=== PATIENT | female | born 1980 | race Caucasian/White ===

== ENCOUNTER 2016-08-26 14:31 | Emergency (ER) ==
[2016-08-26 14:47] VITALS: BP 144/92; TEMP 98.8; BMI 26.2
[2016-08-26] MEDS ORDERED: AUGMENTIN 500-125 MG TAB PO STA (14:57)
[2016-08-26] MEDS ORDERED: NORCO 7.5-325 PO STA (14:57)
--- NOTE | 2016-08-26 15:00 | ED.PDOC ---
General ED Provider: Dr. SANGEETHA BARBOSA Chief Complaint: Tooth Problem Stated Complaint: Been hurting in the tooth, upper side , face swollen. taking ultram not helping. Time Seen by Physician: 14:58 Mode of Arrival: Walk-In Information Source: Patient Primary Care Provider: CHAITANYA WOODS Nursing and Triage Documentation Reviewed and Agree: Yes EENT Complaint Exam - Dental/Oral Complaint/Exam Symptoms Are: Still present Timing: Constant Initial Severity: Moderate Current Severity: Moderate Character: Reports: Aching, Throbbing Aggravating: Reports: Chewing Alleviating: Reports: None Associated Signs and Symptoms: Reports: Swelling, Foul odor. Denies: Discharge , Fever, Foul taste in mouth Related History: Reports: Similar episode Cardiac Risk Factors: Reports: None Dental/Oral Surgical History: Reports: None Tooth Findings: Present: Percussion tenderness, Gross decay Facial Swelling Present: Yes Bleeding Present: No Septal Hematoma: No Differential Diagnoses: Dental Abcess, Dental Caries Review of Systems - Review Of Systems Constitutional: Reports: No symptoms Eyes: Reports: No symptoms Ears, Nose, Mouth, Throat: Reports: Mouth pain Respiratory: Reports: No symptoms Cardiac: Reports: No symptoms GI: Reports: No symptoms : Reports: No symptoms Musculoskeletal: Reports: No symptoms Skin: Reports: No symptoms Neurological: Reports: No symptoms Endocrine: Reports: No symptoms Hematologic/Lymphatic: Reports: No symptoms All Other Systems: Reviewed and Negative Past Medical History - Past Medical History Previously Healthy: Yes Endocrine: Reports: Hyperthyroid Cardiovascular: Reports: Hypertension Respiratory: Reports: None Hematological: Reports: Anemia Gastrointestinal: Reports: None Genitourinary: Reports: None Neuro/Psych: Reports: Anxiety, Depression Musculoskeletal: Reports: None Cancer: Reports: None Last Menstrual Period: this week Other Pertinent Past Medical History: NECK AND BACK PROBLEMS, Previous abscess - Surgical History General Surgical History: Reports: (x4). Denies: Hysterectomy (D&C) - Family History Family History: Reports: Unknown - Social History Smoking Status: Current every day smoker, Light tobacco smoker Smoking Cessation Counseling Time: > 3 min - 10 min Hx Substance Use: No Alcohol Screening: None - Immunizations Tetanus Shot up to Date: Yes Physical Exam - Physical Exam Appearance: Well-appearing, Obese Pain Distress: Mild Eyes: JAILENE, EOMI, Conjunctiva clear ENT: Ears normal, Nose normal, Oropharynx normal Respiratory: Airway patent, Breath sounds clear, Breath sounds equal, Respirations nonlabored Cardiovascular: RRR, Pulses normal, No rub, No murmur GI/: Soft, Nontender, No masses, Bowel sounds normal, No Organomegaly Musculoskeletal: Normal strength, ROM intact, No edema, No calf tenderness Skin: Warm, Dry, Normal color Neurological: Sensation intact, Motor intact, Reflexes intact, Cranial nerves intact, Alert, Oriented Psychiatric: Affect appropriate, Mood appropriate Critical Care Note - Critical Care Note Total Time (mins): 0 Course - Course Orders, Labs, Meds: Orders Category Date Time Status Amoxicillin/Potassium Clav [Augmentin 500-125 mg Tab] MEDS 08/26/16 14:57 Stat 1 tab PO ONCE STA Hydrocodone Bit/Acetaminophen [[place] 7.5-325] MEDS 08/26/16 14:57 Stat 1 tab PO ONCE STA Vital Signs: Temp Pulse Resp BP Pulse Ox 08/26/16 14:31 98.8 F 101 H 16 144/92 H 98 Departure - Departure Time of Disposition: 15:01 Disposition: HOME SELF-CARE Discharge Problem: Toothache Instructions: Dental Caries (ED) Condition: Stable Pt referred to PMD for follow-up: Yes (dentist) Additional Instructions: Keep taking the Ultram Patient goes to pain management' Prescriptions: Amoxicillin/Potassium Clav [Augmentin 500-125 mg Tab] 1 tab PO Q12HR #20 tablet Allergies/Adverse Reactions: Allergies No Known Allergies Allergy (Verified 08/26/16 14:38) Home Medications: Ambulatory Orders Gabapentin [Neurontin] 300 mg PO TID 12/12/13 Dextroamphetamine/Amphetamine [Adderall 15 mg Tablet] 30 mg PO BID 03/02/14 Ferrous Sulfate [Iron] 325 mg PO BID 03/02/14 Tramadol HCl [Ultram] 50 mg PO QID 10/18/14 Cyclobenzaprine HCl [Flexeril] 10 mg PO BID 12/02/14 Clonazepam [Klonopin] 0.5 mg PO BID 09/29/15 Citalopram Hydrobromide [Celexa] 40 mg PO at bedtime #30 11/03/15 Nifedipine [Procardia Xl] 30 mg PO DAILY 11/26/15 Amoxicillin/Potassium Clav [Augmentin 500-125 mg Tab] 1 tab PO Q12HR #20 tablet 08/26/16 Disposition Discussed With: Patient
== END 2016-08-26 15:35 | disposition home or self-care (01) ==
LOC: ED 14:31
DX: K08.89 Other specified disorders of teeth and supporting structures (principal); K02.7 Dental root caries; F17.210 Nicotine dependence, cigarettes, uncomplicated; Z79.899 Other long term (current) drug therapy
CPT/HCPCS: 99282

== ENCOUNTER 2016-09-28 08:52 | Outpatient (CLI) ==
--- NOTE | 2016-09-28 16:44 | MRI ---
EXAM: MRI cervical spine without IV contrast. DATE: 28 September 2016. HISTORY: Chronic neck pain. TECHNIQUE: Sagittal and axial T1W and T2W sequences of the cervical spine along with sagittal IR an d coronal T2W sequences were obtained using 1.2 Jennifer magnet. No IV contrast. COMPARISON: C-spine series 05 July 2011. MRI C-spine 01 June 2014. FINDINGS: Minor/mild rightward curvature of the mid cervical spine is observed. Straightening of t he upper cervical spine may be due to positioning or muscle spasm. No acute c-spine fracture, sublu xation, osseous malignancy, or jumped facet is evident. Cervical vertebra are normal in height. T1 W bone marrow signal is slightly darker than the intervertebral discs, but remains brighter than the paraspinal muscles.. Intervertebral discs are normal in height. Cervical and upper thoracic spina l cord reveals no syrinx, cord edema, myelomalacia, or neoplasm. Visible brainstem and cerebellum are unremarkable. A few inferior right mastoid air cells and bilat eral petrous apex mastoid air cells T2W bright signal is observed. Minor mucosal thickening is demo nstrated within the anterior sphenoid sinus and scattered ethmoid air cells. Trachea, larynx, and ep iglottis are unremarkable. No thyroid, submandibular, or parotid gland neoplasm is evident. Small lymph nodes are seen in the upper neck bilaterally. No cervical lymphadenopathy, distinct neck mass , apical lung mass, pneumonia, or pleural effusion is evident. Segmental analysis: C2-3: Normal. C3-4: Minimal posterior disc bulge (1.2 mm AP) does not contact the cord. Canal is 10.2 mm AP. Ea ch foramen is patent. C4-5: Posterior midline disc protrusion (1.8 mm AP x 5.5 mm transverse) touches the cord anteriorly . Canal is 8.6 mm AP. Minor/mild bilateral foraminal narrowing is due to uncinate hypertrophy. C5-6: Minor posterior disc bulge (1 mm AP) does not contact the cord. Canal is 10.7 mm AP. Mild b ilateral foraminal stenoses due to uncinate hypertrophy and minor left facet disease. C6-7: Minimal posterior disc bulge (1 mm AP) does not contact the cord. Canal is 10.6 mm AP. Josh r bilateral foraminal narrowing is due to uncinate hypertrophy and minor facet disease. C7-T1: Normal, except for bilateral foraminal T2W bright, T1W dark perineural cysts. T1-2: Normal, except for bilateral foraminal T2W bright, T1W dark perineural cysts. IMPRESSIONS: 1. C-spine minor facet arthropathy, uncinate hypertrophy, and DDD. 2. Mild central canal stenosis at C4-5. No syrinx or myelomalacia. 3. Multilevel cervical foraminal narrowing (minor/mild). 4. C7-T1 and T1-2 foraminal benign perineural cysts. 5. Mild bilateral mastoid air cell disease / petrous apicitis. 6. T1W borderline marrow signal. DDX: Normal variation vs red marrow hyperplasia / red marrow rec onversion. Correlate for anemia.
== END 2016-09-28 08:53 | disposition home or self-care (01) ==
LOC: RAD 08:52
PROVIDERS: ATTEND Nurse Practitioner Family
DX: M54.2 Cervicalgia (principal); G89.29 Other chronic pain

== ENCOUNTER 2016-10-20 20:16 | Emergency (ER) ==
[2016-10-20 20:29] VITALS: BP 166/78; TEMP 99.4; BMI 27.3
--- NOTE | 2016-10-20 21:08 | ED.PDOC ---
General ED Provider: Dr. ANANYA COLVIN Chief Complaint: Tooth Problem Stated Complaint: Pateint states she has had right lower dental pain for few days. pain not relvied with Tramadol or motrin Time Seen by Physician: 20:30 Mode of Arrival: Walk-In Information Source: Patient Exam Limitations: No limitations Primary Care Provider: CHAITANYA WOODS Nursing and Triage Documentation Reviewed and Agree: Yes EENT Complaint Exam - Dental/Oral Complaint/Exam Mechanism of Injury: No known trauma Onset/Duration: 3 days Symptoms Are: Still present Timing: Constant Initial Severity: Moderate Current Severity: Severe Character: Reports: Aching, Throbbing Aggravating: Reports: Heat, Cold, Chewing, Exertion Alleviating: Reports: None Associated Signs and Symptoms: Denies: Swelling, Discharge, Fever, Foul odor, Foul taste in mouth Related History: Reports: Similar episode, Previous tooth problem Cardiac Risk Factors: Reports: None Dental/Oral Surgical History: Reports: Third Molar Extractions Tooth Findings: Present: Gross caries, Dental fracture Cervical Lymphadenopathy Present: No Facial Swelling Present: No Bleeding Present: No Septal Hematoma: No Foreign Body Present: No Dysphagia Present: No Drooling Present: No Asymmetrical Tonsillar Swelling Present: No Uvula Midline: No Yoko-tonsillar Fluctuence: No Trismus Present: No Palatal Petechiae Present: No Scarlatinaform Rash Present: No Lesions: Absent: Lip, Gums, Tongue, Buccal Mucosa, Pharynx Exanthem: Absent: Lip, Gums, Tongue, Buccal Mucosa, Pharynx Vesicles: Absent: Lip, Gums, Tongue, Buccal Mucosa, Pharynx Teeth Picture: 1 - fractured tooth 2 - extracted 3 - extracted Differential Diagnoses: Dental Caries, Fractured Tooth Review of Systems - Review Of Systems Constitutional: Reports: No symptoms Eyes: Reports: No symptoms Ears, Nose, Mouth, Throat: Reports: Mouth pain Respiratory: Reports: No symptoms Cardiac: Reports: No symptoms GI: Reports: No symptoms : Reports: No symptoms Musculoskeletal: Reports: No symptoms Skin: Reports: No symptoms Neurological: Reports: No symptoms Endocrine: Reports: No symptoms Hematologic/Lymphatic: Reports: No symptoms All Other Systems: Reviewed and Negative Past Medical History - Past Medical History Previously Healthy: Yes Endocrine: Reports: Hyperthyroid Cardiovascular: Reports: Hypertension Respiratory: Reports: None Hematological: Reports: Anemia Gastrointestinal: Reports: None Genitourinary: Reports: None Neuro/Psych: Reports: Anxiety, Depression Musculoskeletal: Reports: None Cancer: Reports: None Last Menstrual Period: PRESENTLY Other Pertinent Past Medical History: NECK AND BACK PROBLEMS, Previous abscess - Surgical History General Surgical History: Reports: (x4). Denies: Hysterectomy (D&C) - Family History Family History: Reports: Unknown - Social History Smoking Status: Current every day smoker, Light tobacco smoker Hx Substance Use: No Alcohol Screening: None - Immunizations Tetanus Shot up to Date: (UNKNOWN) Physical Exam - Physical Exam Appearance: Well-nourished Ill-appearing: Mild Pain Distress: Moderate Eyes: Conjunctiva clear ENT: Ears normal, Nose normal, Oropharynx normal Neck: Supple Respiratory: Airway patent, Breath sounds clear, Breath sounds equal, Respirations nonlabored Cardiovascular: Pulses normal, No rub, No murmur, Tachycardia Skin: Warm, Dry, Normal color Neurological: Alert, Oriented Psychiatric: Anxious, Depressed Critical Care Note - Critical Care Note Total Time (mins): 0 Course - Course Vital Signs: Temp Pulse Resp BP Pulse Ox 10/20/16 20:17 99.4 F 109 H 20 166/78 H 100 Departure - Departure Time of Disposition: 21:04 Disposition: HOME SELF-CARE Discharge Problem: Toothache Instructions: Toothache (ED) Condition: Fair Pt referred to PMD for follow-up: Yes Additional Instructions: Follow up with your dentist soon Take medications as prescribed. Prescriptions: Amoxicillin [Amoxil] 500 mg PO TID #30 capsule Allergies/Adverse Reactions: Allergies No Known Allergies Allergy (Verified 08/26/16 14:38) Home Medications: Ambulatory Orders Gabapentin [Neurontin] 300 mg PO TID 12/12/13 Dextroamphetamine/Amphetamine [Adderall 15 mg Tablet] 30 mg PO BID 03/02/14 Ferrous Sulfate [Iron] 325 mg PO BID 03/02/14 Tramadol HCl [Ultram] 50 mg PO DIRECTED PRN 10/18/14 Cyclobenzaprine HCl [Flexeril] 10 mg PO BID PRN 12/02/14 Clonazepam [Klonopin] 0.5 mg PO BID 09/29/15 Citalopram Hydrobromide [Celexa] 40 mg PO at bedtime #30 11/03/15 Amoxicillin [Amoxil] 500 mg PO TID #30 capsule 10/20/16 Disposition Discussed With: Patient
[2016-10-20] MEDS ORDERED: AMOXIL PO STA (21:09)
== END 2016-10-20 21:45 | disposition home or self-care (01) ==
LOC: ED 20:16
DX: K08.89 Other specified disorders of teeth and supporting structures (principal); K02.7 Dental root caries; S02.5XXA Fracture of tooth (traumatic), initial encounter for closed fracture; F17.210 Nicotine dependence, cigarettes, uncomplicated
CPT/HCPCS: 99282

== ENCOUNTER 2017-02-13 16:26 | Emergency (ER) ==
[2017-02-13 16:30] VITALS: BP 121/75; TEMP 97.7; BMI 25.7
[2017-02-13] MEDS ORDERED: FLUORETS OP STA (16:38)
[2017-02-13] MEDS ORDERED: PROPARACAINE 0.5% OP STA (16:38)
[2017-02-13] MEDS ORDERED: EYE-STREAM OP STA (16:38)
--- NOTE | 2017-02-13 16:42 | ED.PDOC ---
General ED Provider: Dr. NEEMA WILCOX JR Chief Complaint: Eye Problem Stated Complaint: right eye red, swollen with clear drainage. [ End ]97.7 91 18 96% 121/75 Time Seen by Physician: 16:40 Mode of Arrival: Walk-In Information Source: Patient Exam Limitations: No limitations Primary Care Provider: CHAITANYA WOODS Nursing and Triage Documentation Reviewed and Agree: No Review of Systems - Review Of Systems Constitutional: Reports: No symptoms Eyes: Reports: Blurred vision, Vision change, Drainage, Inflammation, Pain Ears, Nose, Mouth, Throat: Reports: No symptoms Respiratory: Reports: No symptoms Cardiac: Reports: No symptoms GI: Reports: No symptoms : Reports: No symptoms Musculoskeletal: Reports: No symptoms Skin: Reports: No symptoms Neurological: Reports: No symptoms Endocrine: Reports: No symptoms Hematologic/Lymphatic: Reports: No symptoms All Other Systems: Other Past Medical History - Past Medical History Previously Healthy: Yes Endocrine: Reports: Hyperthyroid Cardiovascular: Reports: Hypertension Respiratory: Reports: None Hematological: Reports: Anemia Gastrointestinal: Reports: None Genitourinary: Reports: None Neuro/Psych: Reports: Migraine, Anxiety, Depression Musculoskeletal: Reports: None Cancer: Reports: None Last Menstrual Period: jan 03 Other Pertinent Past Medical History: ;ADD htn - Surgical History General Surgical History: Reports: (x4). Denies: Hysterectomy (D&C) - Family History Family History: Reports: Unknown - Social History Smoking Status: Current every day smoker, Light tobacco smoker Hx Substance Use: No Alcohol Screening: None Physical Exam - Physical Exam Appearance: Well-appearing, Thin Pain Distress: Moderate Eyes: EOMI, Conjunctiva inflammed ENT: Ears normal, Nose normal, Oropharynx normal Neck: Supple Respiratory: Airway patent Cardiovascular: RRR Procedures - Eye Procedure Location of Foreign Body: none Tetracaine Drops Administered: No (proparicane) Eye Irrigated: Yes (no abrasion no fb) Critical Care Note - Critical Care Note Total Time (mins): 0 Course - Course Vital Signs: Temp Pulse Resp BP Pulse Ox 02/13/17 16:27 97.7 F 91 H 18 121/75 96 Departure - Departure Time of Disposition: 17:21 Disposition: HOME SELF-CARE Discharge Problem: Conjunctivitis Qualifiers: Conjunctivitis type: acute Acute conjunctivitis type: unspecified Laterality: right Qualified Code(s): H10.31 - Unspecified acute conjunctivitis, right eye Instructions: Conjunctivitis (ED) Condition: Good Pt referred to PMD for follow-up: Yes Additional Instructions: bleph 10 for three days should improver rapidly if not improving 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 Prescriptions: Sulfacetamide Sodium [Bleph-10 Opth Maribeth] 2 drop OP QID #1 bottle Allergies/Adverse Reactions: Allergies No Known Allergies Allergy (Verified 02/13/17 16:30) Home Medications: Ambulatory Orders Gabapentin [Neurontin] 300 mg PO TID 12/12/13 Dextroamphetamine/Amphetamine [Adderall 15 mg Tablet] 30 mg PO BID 03/02/14 Ferrous Sulfate [Iron] 325 mg PO BID 03/02/14 Cyclobenzaprine HCl [Flexeril] 10 mg PO BID PRN 12/02/14 Clonazepam [Klonopin] 0.5 mg PO BID 09/29/15 Citalopram Hydrobromide [Celexa] 40 mg PO at bedtime #30 11/03/15 Hydrocodone Bit/Acetaminophen [[place] 5-325] 1 each PO TID 02/13/17 Sulfacetamide Sodium [Bleph-10 Opth Maribeth] 2 drop OP QID #1 bottle 02/13/17
== END 2017-02-13 17:29 | disposition home or self-care (01) ==
LOC: ED 16:26
DX: H10.31 Unspecified acute conjunctivitis, right eye (principal); F17.210 Nicotine dependence, cigarettes, uncomplicated
CPT/HCPCS: 99282

== ENCOUNTER 2017-05-07 12:22 | Emergency (ER) ==
[2017-05-07 12:30] VITALS: BP 126/86; TEMP 97.3; BMI 26.6
--- NOTE | 2017-05-07 13:00 | ED.PDOC ---
General ED Provider: Dr. NEEMA WILCOX JR Chief Complaint: Tooth Problem Stated Complaint: RIGHT FACIAL SWELLING YESTERDAY WORSE.[End]right upper molar red tender swelling 97.3 80 16 98% 126/86 10 NORCO AND IBUPROFEN 600 MG 1000 Time Seen by Physician: 13:22 Mode of Arrival: Walk-In Information Source: Patient Exam Limitations: No limitations Primary Care Provider: CHAITANYA WOODS Nursing and Triage Documentation Reviewed and Agree: No Review of Systems - Review Of Systems Constitutional: Reports: Malaise Eyes: Reports: No symptoms Ears, Nose, Mouth, Throat: Reports: Mouth pain (right thrid molar and bucal tenderness note white tissue on bucal surface no visible tooth at site) Respiratory: Reports: No symptoms Cardiac: Reports: No symptoms GI: Reports: No symptoms : Reports: No symptoms Musculoskeletal: Reports: No symptoms Skin: Reports: Lumps (edema) Neurological: Reports: No symptoms Endocrine: Reports: No symptoms Hematologic/Lymphatic: Reports: No symptoms All Other Systems: Other Past Medical History - Past Medical History Previously Healthy: Yes Endocrine: Reports: Hyperthyroid Cardiovascular: Reports: Hypertension Respiratory: Reports: None Hematological: Reports: Anemia Gastrointestinal: Reports: None Genitourinary: Reports: None Neuro/Psych: Reports: Migraine, Anxiety, Depression Musculoskeletal: Reports: None, Back Pain ( NECK AND BACK PROBLEMS ) Cancer: Reports: None Last Menstrual Period: APR 19 Other Pertinent Past Medical History: ADD A - Surgical History General Surgical History: Reports: (x4). Denies: Hysterectomy (D&C) - Family History Family History: Reports: Unknown - Social History Smoking Status: Current every day smoker, Light tobacco smoker Hx Substance Use: No Alcohol Screening: None Physical Exam - Physical Exam Appearance: Ill-appearing Ill-appearing: Moderate Pain Distress: Moderate Eyes: JAILENE, EOMI, Conjunctiva clear ENT: Ears normal, Nose normal, Erythema (color change no focal lesion) Neck: Supple Respiratory: Airway patent, Breath sounds clear, Breath sounds equal, Respirations nonlabored Cardiovascular: RRR, Pulses normal, No rub, No murmur GI/: Soft, Nontender, No masses, Bowel sounds normal, No Organomegaly Musculoskeletal: Normal strength, ROM intact, No edema, No calf tenderness Skin: Warm, Dry, Normal color Neurological: Sensation intact, Motor intact, Reflexes intact, Cranial nerves intact, Alert, Oriented Psychiatric: Affect appropriate, Mood appropriate Critical Care Note - Critical Care Note Total Time (mins): 0 Course - Course Vital Signs: Temp Pulse Resp BP Pulse Ox 05/07/17 12:26 97.3 F L 80 16 126/86 98 Departure - Departure Time of Disposition: 13:25 Disposition: HOME SELF-CARE Discharge Problem: Toothache, Dental abscess Instructions: Dental Caries (GEN), Toothache (ED) Condition: Good Pt referred to PMD for follow-up: Yes Additional Instructions: follow up with dentist as soon as possible take all of antibiotic swelling and pain should lessen after each antibiotic return if fever over 101.0 of worsening need to have dentist address problem Prescriptions: Naproxen [Naprosyn] 500 mg PO Q12HR PRN #30 tablet PRN Reason: PAIN Amoxicillin/Potassium Clav [Augmentin 875-125 mg Tab] 1 tab PO BIDWM #14 tablet Allergies/Adverse Reactions: Allergies No Known Allergies Allergy (Verified 05/07/17 12:24) Home Medications: Ambulatory Orders Gabapentin [Neurontin] 300 mg PO TID 12/12/13 Dextroamphetamine/Amphetamine [Adderall 15 mg Tablet] 30 mg PO BID 03/02/14 Ferrous Sulfate [Iron] 325 mg PO BID 03/02/14 Cyclobenzaprine HCl [Flexeril] 10 mg PO BID PRN 12/02/14 Clonazepam [Klonopin] 0.5 mg PO BID 09/29/15 Citalopram Hydrobromide [Celexa] 40 mg PO at bedtime #30 11/03/15 Hydrocodone Bit/Acetaminophen [[place] 5-325] 1 each PO TID 02/13/17 Amoxicillin/Potassium Clav [Augmentin 875-125 mg Tab] 1 tab PO BIDWM #14 tablet 05/07/17 Naproxen [Naprosyn] 500 mg PO Q12HR PRN #30 tablet 05/07/17
[2017-05-07] MEDS ORDERED: PHENERGAN 25 MG/ML VIAL IM STA (13:19)
[2017-05-07] MEDS ORDERED: DEMEROL 25 MG/ML VIAL IM STA (13:19)
== END 2017-05-07 13:55 | disposition home or self-care (01) ==
LOC: ED 12:22
DX: K04.7 Periapical abscess without sinus (principal); F17.210 Nicotine dependence, cigarettes, uncomplicated
CPT/HCPCS: 96372; 99282

== ENCOUNTER 2017-05-23 07:36 | Outpatient (CLI) ==
[2017-05-23 09:13] LABS: FOLATE 18.8 ng/mL (3.1-20.5)
[2017-05-24 09:20] LABS: BASOPHILS # (AUTO) 0.1 K/uL (0-0.2); BASOPHILS % (AUTO) 0.9 % (0.0-3.0); EOSINOPHILS # (AUTO) 0.2 K/ul (0.0-0.7); EOSINOPHILS % (AUTO) 3.3 % (0.0-7.0); HEMOGLOBIN 9.4 g/dl (12.0-16.0); IMMATURE GRANULOCYTE % (AUTO) 0.1 % (0.0-5.0); LYMPHOCYTES # (AUTO) 2.3 K/uL (0.60-3.4); LYMPHOCYTES % (AUTO) 33.6 (10.0-50.0); MEAN CORPUSCULAR HEMOGLOBIN 25.5 pg (27.0-31.0); MEAN CORPUSCULAR HGB CONC 30.3 (31.8-35.4); MONOCYTES # (AUTO) 0.4 K/uL (0.4-2.0); MONOCYTES % (AUTO) 6.4 (0-10); NEUTROPHILS # (AUTO) 3.7 K/ul (2.0-6.9); NEUTROPHILS % (AUTO) 55.7; PLATELET COUNT 292 10^3/uL (140-440); RED BLOOD COUNT 3.69 10^6/ul (4.20-5.40); WHITE BLOOD COUNT 6.69 K/ul (4.6-10.2)
[2017-05-24 09:45] LABS: ALBUMIN 4.1 g/dL (3.4-5.0); ALBUMIN/GLOBULIN RATIO 1.58; ANION GAP 14.5; BILIRUBIN,TOTAL 0.3 mg/dL (0.00-1.20); BUN/CREATININE RATIO 32.81; CALCIUM 9.4 mg/dL (8.2-10.2); CREATININE 0.64 mg/dL (0.60-1.30); POTASSIUM 3.5 mmol/L (3.5-5.10); TOTAL PROTEIN 6.7 g/dL (6.4-8.2)
== END 2017-05-23 07:37 | disposition home or self-care (01) ==
LOC: LAB 07:36
PROVIDERS: ATTEND Internal Medicine
DX: F90.9 Attention-deficit hyperactivity disorder, unspecified type (principal); F32.9 Major depressive disorder, single episode, unspecified; M48.061 Spinal stenosis, lumbar region without neurogenic claudication; R20.0 Anesthesia of skin
CPT/HCPCS: 36415; 80053; 82607; 82746; 83036; 84439; 84443; 84481; 85025

== ENCOUNTER 2017-07-18 16:41 | Emergency (ER) ==
[2017-07-18 16:50] VITALS: BP 120/85; TEMP 97.8; BMI 28.3
[2017-07-18] MEDS ORDERED: BACTRIM DS 800/160 MG PO STA (19:17)
--- NOTE | 2017-07-18 19:17 | ED.PDOC ---
General ED Provider: Dr. REGINO GRAYSON Chief Complaint: Bite Stated Complaint: Onset yesterday; past hx of previous MRSA abscess. Current area slighlty swollen and indurated. No drainage or red streaking. Worried site needs lanced Time Seen by Physician: 18:00 Mode of Arrival: Walk-In Information Source: Patient Primary Care Provider: CHAITANYA WOODS Nursing and Triage Documentation Reviewed and Agree: Yes Reviewed sepsis parameters & appropriate labs ordered?: Yes System Inflammatory Response Syndrome: Not Applicable Sepsis Protocol: For patient's 13 years and over: Temp is 96.8 and below OR 101 and greater Pulse >90 BPM Resp >20/minute Acutely Altered Mental Status Are patient's symptoms suggestive of a new infection, such as: -Pneumonia -Skin, Soft Tissue -Endocarditis -UTI -Bone, Joint Infection -Implantable Device -Acute Abdominal Infection -Wound Infection -Meningitis -Blood Stream Catheter Infection -Unknown System Inflammatory Response Syndrome: Not Applicable Skin Complaint Exam - Skin/Soft Tissue Complaint/Exam Symptoms Are: Still present Timing: Constant Initial Severity: Mild Current Severity: Moderate Character: Reports: Redness, Swelling, Raised, Painful Aggravating: Reports: None Alleviating: Reports: None Associated Signs and Symptoms: Denies: Fever, Chills, Itching, Drainage, Bruising, Tenderness, Red streaks, Joint swelling Related History: Reports: Similar episode Related Surgical History: Reports: None Recent Exposure to Others w/Similar Symptoms: Yes Skin Findings: Present: Erythema, Fluctuant mass Joint Tenderness Present: No Differential Diagnoses: Abscess, Cellulitis Review of Systems - Review Of Systems Constitutional: Reports: No symptoms Eyes: Reports: No symptoms Ears, Nose, Mouth, Throat: Reports: No symptoms Respiratory: Reports: No symptoms Cardiac: Reports: No symptoms GI: Reports: No symptoms : Reports: No symptoms Musculoskeletal: Reports: No symptoms Skin: Reports: Change in color, Other (swelling rt forearm ) Neurological: Reports: No symptoms All Other Systems: Reviewed and Negative Past Medical History - Past Medical History Previously Healthy: Yes Endocrine: Reports: Hyperthyroid Cardiovascular: Reports: Hypertension Respiratory: Reports: None Hematological: Reports: Anemia Gastrointestinal: Reports: None Genitourinary: Reports: None Neuro/Psych: Reports: Migraine, Anxiety, Depression Musculoskeletal: Reports: None, Back Pain ( NECK AND BACK PROBLEMS ) Cancer: Reports: None Last Menstrual Period: jul 06, 2017 Other Pertinent Past Medical History: ADD A - Surgical History General Surgical History: Reports: (x4). Denies: Hysterectomy (D&C) - Family History Family History: Reports: Unknown - Social History Smoking Status: Current every day smoker, Light tobacco smoker Hx Substance Use: No Alcohol Screening: None Physical Exam - Physical Exam Appearance: Well-appearing Ill-appearing: None Pain Distress: None Eyes: JAILENE, EOMI, Conjunctiva clear, Conjunctiva inflammed ENT: Ears normal, Nose normal, Oropharynx normal Neck: Supple Respiratory: Airway patent, Breath sounds clear, Breath sounds equal Cardiovascular: RRR, Pulses normal GI/: Soft, Nontender, No masses Musculoskeletal: Normal strength, ROM intact, No edema Skin: Warm (localized area mid volar aspect Rt forearm 2X3 cm localized induration. Not forming central punctum or head to surface) Critical Care Note - Critical Care Note Total Time (mins): 0 Course - Course Vital Signs: Temp Pulse Resp BP Pulse Ox 07/18/17 16:41 97.8 F 95 H 20 120/85 98 Departure - Departure Time of Disposition: 19:20 Disposition: HOME SELF-CARE Discharge Problem: Abscess Instructions: Abscess (ED) Condition: Good Pt referred to PMD for follow-up: Yes (see pcp in 24 hours) IPMP verified?: No Prescriptions: Sulfamethoxazole/Trimethoprim [Bactrim Ds 800/160 mg] 1 tab PO Q12HR #20 tablet Allergies/Adverse Reactions: Allergies No Known Allergies Allergy (Verified 07/18/17 16:48) Home Medications: Ambulatory Orders Gabapentin [Neurontin] 300 mg PO TID 12/12/13 Dextroamphetamine/Amphetamine [Adderall 15 mg Tablet] 30 mg PO BID 03/02/14 Ferrous Sulfate [Iron] 325 mg PO BID 03/02/14 Cyclobenzaprine HCl [Flexeril] 10 mg PO BID PRN 12/02/14 Clonazepam [Klonopin] 0.5 mg PO BID 09/29/15 Citalopram Hydrobromide [Celexa] 40 mg PO at bedtime #30 11/03/15 Hydrocodone Bit/Acetaminophen [[place] 5-325] 1 each PO TID 02/13/17 Sulfamethoxazole/Trimethoprim [Bactrim Ds 800/160 mg] 1 tab PO Q12HR #20 tablet 02/15/18 Disposition Discussed With: Patient (May take existing analgesics for control of pain. See Family phys for evaluation tomorrow)
== END 2017-07-18 19:25 | disposition home or self-care (01) ==
LOC: ED 16:41
DX: L02.413 Cutaneous abscess of right upper limb (principal); Z86.14 Personal history of Methicillin resistant Staphylococcus aureus infection; F17.210 Nicotine dependence, cigarettes, uncomplicated
CPT/HCPCS: 99282

== ENCOUNTER 2017-11-28 18:22 | Emergency (ER) ==
[2017-11-28 18:34] VITALS: BP 150/109; TEMP 99.1; BMI 29.0
[2017-11-28] MEDS ORDERED: CLEOCIN PO STA (18:45)
--- NOTE | 2017-11-28 18:45 | ED.PDOC ---
General ED Provider: Dr. REGINO WESTBROOK-ER Chief Complaint: Abscess Stated Complaint: lily got an abscess under myn right arm--lily had them befre Time Seen by Physician: 18:45 Mode of Arrival: Walk-In Information Source: Patient Exam Limitations: No limitations Primary Care Provider: CHAITANYA WOODS Nursing and Triage Documentation Reviewed and Agree: Yes Does patient meet sepsis criteria?: No System Inflammatory Response Syndrome: Not Applicable Sepsis Protocol: For patient's 13 years and over: Temp is 96.8 and below OR 101 and greater Pulse >90 BPM Resp >20/minute Acutely Altered Mental Status Are patient's symptoms suggestive of a new infection, such as: -Pneumonia -Skin, Soft Tissue -Endocarditis -UTI -Bone, Joint Infection -Implantable Device -Acute Abdominal Infection -Wound Infection -Meningitis -Blood Stream Catheter Infection -Unknown Skin Complaint Exam - Skin/Soft Tissue Complaint/Exam Onset/Duration: 24 hrs Symptoms Are: Still present Timing: Constant Initial Severity: Mild Current Severity: Mild Location: right axilla Character: Reports: Redness, Swelling, Raised, Painful Aggravating: Reports: None Alleviating: Reports: None Associated Signs and Symptoms: Reports: Tenderness, Red streaks 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 Surgical History: Reports: None Recent Exposure to Others w/Similar Symptoms: No Skin Findings: Present: Erythema, Induration, Fluctuant mass Joint Tenderness Present: No Differential Diagnoses: Abscess Review of Systems - Review Of Systems Constitutional: Reports: No symptoms Eyes: Reports: No symptoms Ears, Nose, Mouth, Throat: Reports: No symptoms Respiratory: Reports: No symptoms Cardiac: Reports: No symptoms GI: Reports: No symptoms : Reports: No symptoms Musculoskeletal: Reports: No symptoms Skin: Reports: No symptoms, Lumps Neurological: Reports: No symptoms Endocrine: Reports: No symptoms Hematologic/Lymphatic: Reports: No symptoms All Other Systems: Reviewed and Negative Past Medical History - Past Medical History Previously Healthy: Yes Endocrine: Reports: Hyperthyroid Cardiovascular: Reports: Hypertension Respiratory: Reports: None Hematological: Reports: Anemia Gastrointestinal: Reports: None Genitourinary: Reports: None Neuro/Psych: Reports: Migraine, Anxiety, Depression Musculoskeletal: Reports: None, Back Pain ( NECK AND BACK PROBLEMS ) Cancer: Reports: None Last Menstrual Period: now Other Pertinent Past Medical History: ADD A - Surgical History General Surgical History: Reports: (x4). Denies: Hysterectomy (D&C) - Family History Family History: Reports: Unknown - Social History Smoking Status: Current every day smoker, Heavy tobacco smoker Hx Substance Use: No Alcohol Screening: None Physical Exam - Physical Exam Appearance: Well-appearing Pain Distress: Mild Eyes: JAILENE, EOMI, Conjunctiva clear ENT: Ears normal, Nose normal, Oropharynx normal Neck: Supple Respiratory: Airway patent, Breath sounds clear, Breath sounds equal, Respirations nonlabored Cardiovascular: RRR, Pulses normal, No rub, No murmur GI/: Soft Musculoskeletal: Normal strength, ROM intact, No edema, No calf tenderness Skin: Warm Neurological: Sensation intact, Motor intact, Reflexes intact, Cranial nerves intact, Alert, Oriented Psychiatric: Affect appropriate, Mood appropriate Procedures - Incision and Drainage Site: right axilla Instrument Used: 15 Blade I & D Procedure: Yes: Hibiclens Prep, Sterile drapes applied, Sterile dressing applied Lidocaine Used: Yes Type of Drainage: Present: Pus, Blood Irrigated: No Critical Care Note - Critical Care Note Total Time (mins): 0 Course - Course Orders, Labs, Meds: Orders Category Date Time Status Wound care [ED WOUND CARE] .ONCE EMERGENCY 11/28/17 18:46 Active Clindamycin HCl [Cleocin] MEDS 11/28/17 18:45 Stat 300 mg PO ONCE STA Medications Generic Name Dose Route Start Last Admin Trade Name Jeffreyq PRN Reason Stop Dose Admin Clindamycin HCl 300 mg 11/28/17 18:45 Cleocin PO 11/28/17 18:46 ONCE STA Vital Signs: Temp Pulse Resp BP Pulse Ox 11/28/17 18:23 99.1 F 109 H 20 150/109 H 98 Departure - Departure Time of Disposition: 18:48 Disposition: HOME SELF-CARE Discharge Problem: Abscess Instructions: Abscess (ED) Condition: Good Pt referred to PMD for follow-up: Yes IPMP verified?: No Additional Instructions: clindamycin 300mg tid x 7 days--change dressing daily--f/u with pcp Allergies/Adverse Reactions: Allergies No Known Allergies Allergy (Verified 11/28/17 18:33) Home Medications: Ambulatory Orders Gabapentin [Neurontin] 300 mg PO TID 12/12/13 Dextroamphetamine/Amphetamine [Adderall 15 mg Tablet] 30 mg PO BID 03/02/14 Ferrous Sulfate [Iron] 325 mg PO BID 03/02/14 Cyclobenzaprine HCl [Flexeril] 10 mg PO BID PRN 12/02/14 Clonazepam [Klonopin] 0.5 mg PO BID 09/29/15 Citalopram Hydrobromide [Celexa] 40 mg PO at bedtime #30 11/03/15 Hydrocodone Bit/Acetaminophen [[place] 5-325] 1 each PO TID 02/13/17 Disposition Discussed With: Patient
[2017-11-28] MEDS ORDERED: LIDOCAINE HCL 1% SDV ONE (18:55)
== END 2017-11-28 19:05 | disposition home or self-care (01) ==
LOC: ED 18:22
DX: L02.411 Cutaneous abscess of right axilla (principal); F17.210 Nicotine dependence, cigarettes, uncomplicated
CPT/HCPCS: 87070; 87186; 96372; 99283

== ENCOUNTER 2017-12-28 20:57 | Outpatient (CLI) ==
[2017-12-28 21:46] VITALS: BMI 28.7
== END 2017-12-28 21:02 | disposition critical access hospital (66) ==
LOC: AMBL 20:57
PROVIDERS: ATTEND Internal Medicine Geriatric Medicine
DX: R07.9 Chest pain, unspecified (principal); R06.02 Shortness of breath; R06.4 Hyperventilation; F41.9 Anxiety disorder, unspecified

== ENCOUNTER 2017-12-28 21:26 | Emergency (ER) ==
[2017-12-28] MEDS ORDERED: GI COCKTAIL PO STA (21:30)
[2017-12-28] MEDS ORDERED: ATIVAN PO STA (21:31)
[2017-12-28] MEDS ORDERED: ASPIRIN CHEWABLE PO STA (21:31)
--- NOTE | 2017-12-28 21:36 | ED.PDOC ---
General ED Provider: Dr. ANANYA COLVIN Chief Complaint: Chest Wall Injury/Pain Stated Complaint: Patient is a 37 year old female who comes to the ER with chest pain that started at 4 pm today. She states that she had moved her recliner and thought she may have strained Time Seen by Physician: 21:33 Information Source: Patient Exam Limitations: No limitations Primary Care Provider: CHAITANYA WOODS Nursing and Triage Documentation Reviewed and Agree: Yes Does patient meet sepsis criteria?: No System Inflammatory Response Syndrome: Not Applicable Sepsis Protocol: For patient's 13 years and over: Temp is 96.8 and below OR 101 and greater Pulse >90 BPM Resp >20/minute Acutely Altered Mental Status Are patient's symptoms suggestive of a new infection, such as: -Pneumonia -Skin, Soft Tissue -Endocarditis -UTI -Bone, Joint Infection -Implantable Device -Acute Abdominal Infection -Wound Infection -Meningitis -Blood Stream Catheter Infection -Unknown Cardiovascular Complaint Exam - Chest Pain Complaint/Exam Onset: Gradual Duration: 1 day Symptoms Are: Still present Timing: Constant Length of Chest Pain Episodes: 6 hours Initial Severity: Moderate Current Severity: Mild Location: Reports: Left anterior Pain Radiates: Reports: Left shoulder Aggravating: Reports: None Associated Signs and Symptoms: Reports: Nausea Related History: Reports: Similar episode AMI/ACS Risk Factors: Reports: Myocardial Infarction TAD Risk Factors: Reports: None Pulmonary Embolism Risk Factors: Reports: None Prior Care for this Complaint: No Recent Stress Test: No Recent Echo/LV Function: No JVD Present: No Subcutaneous Emphysema Present: No Diminshed Breath Sounds: No Reproducible Chest Wall Pain: No Bilateral Pulses Present: No If Risk Factors for AMI/ACS Consider: EKG, Cardiac Enzymes Co[place] Plater Consulted: No Differential Diagnoses: Chest Wall Pain Review of Systems - Review Of Systems Constitutional: Reports: No symptoms Eyes: Reports: No symptoms Ears, Nose, Mouth, Throat: Reports: No symptoms Respiratory: Reports: Short of air Cardiac: Reports: Chest pain GI: Reports: No symptoms : Reports: No symptoms Musculoskeletal: Reports: No symptoms Skin: Reports: No symptoms Neurological: Reports: Anxiety, Headache Endocrine: Reports: No symptoms Hematologic/Lymphatic: Reports: No symptoms All Other Systems: Reviewed and Negative Past Medical History - Past Medical History Previously Healthy: Yes Endocrine: Reports: Hyperthyroid Cardiovascular: Reports: Hypertension Respiratory: Reports: None Hematological: Reports: Anemia Gastrointestinal: Reports: None Genitourinary: Reports: None Neuro/Psych: Reports: Migraine, Anxiety, Depression Musculoskeletal: Reports: None, Back Pain ( NECK AND BACK PROBLEMS ) Cancer: Reports: None Other Pertinent Past Medical History: ADD A - Surgical History General Surgical History: Reports: (x4). Denies: Hysterectomy (D&C) - Family History Family History: Reports: Unknown - Social History Smoking Status: Current every day smoker, Heavy tobacco smoker Hx Substance Use: No Alcohol Screening: None Physical Exam - Physical Exam Appearance: Ill-appearing Ill-appearing: Moderate Pain Distress: Severe Neck: Supple Respiratory: Airway patent, Breath sounds clear, Breath sounds equal, Respirations nonlabored Cardiovascular: RRR, Pulses normal, No rub, No murmur GI/: Soft, Nontender, No masses, Bowel sounds normal, No Organomegaly Musculoskeletal: Normal strength Skin: Warm Neurological: Sensation intact, Motor intact, Alert, Oriented Psychiatric: Anxious Interpretation - Radiology Interpretation Radiology Interpretation By: ED Physician Radiology Results: Negative Exam Interpreted: Portable CXR - EKG Interpretation Time of EKG #1: 21:13 Rate: Tachy Rhythm: Sinus Ectopy: None [place]: [place] Interpretation: Sinus tachycardia, non specific st Abnormality Critical Care Note - Critical Care Note Total Time (mins): 0 Course - Course Hematology/Chemistry: 12/28/17 21:40 12/28/17 21:40 Orders, Labs, Meds: Lab Review 12/28/17 12/28/17 12/28/17 21:40 21:40 21:40 WBC 11.69 H RBC 3.43 L Hgb 9.3 L Hct 29.1 L MCV 84.8 MCH 27.1 MCHC 32.0 RDW Coeff of Michelle 19.2 H Plt Count 196 Immature Gran % (Auto) 0.3 Neut % (Auto) 82.8 Lymph % (Auto) 10.5 [place] % (Auto) 5.1 Eos % (Auto) 0.9 Baso % (Auto) 0.4 Immature Gran # (Auto) 0.0 Neut # (Auto) 9.7 H Lymph # (Auto) 1.2 [place] # (Auto) 0.6 Eos # (Auto) 0.1 Baso # (Auto) 0.1 D-Dimer (Manual) 1526.63 Sodium 140 Potassium 3.8 Chloride 105 Carbon Dioxide 28 Anion Gap 10.8 BUN 9 Creatinine 0.59 L Estimated GFR (MDRD) 116.00 BUN/Creatinine Ratio 15.25 Glucose 110 Calcium 8.8 Total Bilirubin 0.2 AST 12 L ALT 7 L Alkaline Phosphatase 51 Total Creatine Kinase 57 Troponin I < 0.0100 Total Protein 5.9 L Albumin 3.3 L Globulin 2.6 Albumin/Globulin Ratio 1.27 12/28/17 23:20 WBC RBC Hgb Hct MCV MCH MCHC RDW Coeff of Michelle Plt Count Immature Gran % (Auto) Neut % (Auto) Lymph % (Auto) [place] % (Auto) Eos % (Auto) Baso % (Auto) Immature Gran # (Auto) Neut # (Auto) Lymph # (Auto) [place] # (Auto) Eos # (Auto) Baso # (Auto) D-Dimer (Manual) Sodium Potassium Chloride Carbon Dioxide Anion Gap BUN Creatinine Estimated GFR (MDRD) BUN/Creatinine Ratio Glucose Calcium Total Bilirubin AST ALT Alkaline Phosphatase Total Creatine Kinase Troponin I < 0.0100 Total Protein Albumin Globulin Albumin/Globulin Ratio Orders Category Date Time Status EKG-(ED ONLY) Stat CARDIO 12/28/17 21:30 Completed NPO REMINDER: IMAGING ONCE CARE 12/28/17 23:45 Active ED IV/MEDIPORT/POWERPORT .ONCE EMERGENCY 12/28/17 23:44 Active CBC W/ AUTO DIFF Stat LAB 12/28/17 21:40 Completed COMPREHENSIVE METABOLIC PANEL Stat LAB 12/28/17 21:40 Completed CREATINE KINASE Stat LAB 12/28/17 21:40 Completed D-DIMER Stat LAB 12/28/17 21:40 Completed TROPONIN I Stat LAB 12/28/17 21:40 Completed TROPONIN I Stat LAB 12/28/17 23:20 Completed 0.9 % Sodium Chloride [Saline Flush] MEDS 12/28/17 23:45 Ordered 1 syr IVF PRN PRN Aspirin [Aspirin Chewable] MEDS 12/28/17 21:31 Discontinued 324 mg PO ONCE STA Ketorolac Tromethamine [Toradol] MEDS 12/28/17 23:46 Discontinued 30 mg IVP ONCE STA Lorazepam [Ativan] MEDS 12/28/17 21:31 Discontinued 1 mg PO ONCE STA Mag-Al Plus//Lidocaine [Gi Cocktail] MEDS 12/28/17 21:30 Discontinued 30 ml PO ONCE STA CHEST, 1V AP ONLY Stat RADS 12/28/17 21:[address] CHEST PE PROTOCOL Stat RADS 12/28/17 23:45 Completed Medications Generic Name Dose Route Start Last Admin Trade Name Freq PRN Reason Stop Dose Admin Sodium Chloride 1 syr 12/28/17 23:45 12/29/17 00:04 Saline Flush IVF 1 syr PRN PRN Administration To flush IV Discontinued Medications Generic Name Dose Route Start Last Admin Trade Name Freq PRN Reason Stop Dose Admin Al Hydroxide/Mg Hydroxide 30 ml 12/28/17 21:30 12/28/17 22:01 Gi Cocktail PO 12/28/17 21:31 30 ml ONCE STA Administration Aspirin 324 mg 12/28/17 21:31 12/28/17 22:01 Aspirin Chewable PO 12/28/17 21:32 324 mg ONCE STA Administration Ketorolac Tromethamine 30 mg 12/28/17 23:46 12/29/17 00:01 Toradol IVP 12/28/17 23:47 30 mg ONCE STA Administration Lorazepam 1 mg 12/28/17 21:31 12/28/17 22:01 Ativan PO 12/28/17 21:32 1 mg ONCE STA Administration Vital Signs: Temp Pulse Resp BP Pulse Ox 12/28/17 21:31 98.2 F 74 18 106/76 100 MELVA Risk Score Age >/= 65: No >/= 3 CAD Risk Factors: No Known CAD (Stenosis >/= 50%): No ASA Use in Past 7 Days: No Severe Angina (>/= 2 episodes in 24 hours): No EKG ST Changes >/= 0.5mm: No Postive Cardiac Marker: No MELVA Total Score: 0 MELVA Risk Score: Risk Score Odds of by 30D 0 0.1 (0.1-0.2) 1 0.3 (0.2-0.3) 2 0.4 (0.3-0.5) 3 0.7 (0.6-0.9) 4 1.2 (1.0-1.5) 5 2.2 (1.9-2.6) 6 3.0 (2.5-3.6) 7 4.8 (3.8-6.1) Departure - Departure Time of Disposition: 01:30 Disposition: HOME SELF-CARE Discharge Problem: Chest wall pain, Non-cardiac chest pain Instructions: Anxiety (ED), Chest Wall Pain (ED) Condition: Stable Pt referred to PMD for follow-up: Yes IPMP verified?: No Additional Instructions: Take medications as prescribed Follow up with PCP in 3-5 days Allergies/Adverse Reactions: Allergies TAPE ADHESIVE Adverse Reaction (Uncoded 12/28/17 21:38) RASH/BLISTER Home Medications: Ambulatory Orders Gabapentin [Neurontin] 300 mg PO TID 12/12/13 Dextroamphetamine/Amphetamine [Adderall 15 mg Tablet] 30 mg PO BID 03/02/14 Ferrous Sulfate [Iron] 325 mg PO TID 03/02/14 Cyclobenzaprine HCl [Flexeril] 10 mg PO BID PRN 12/02/14 Clonazepam [Klonopin] 0.5 mg PO BID 09/29/15 Citalopram Hydrobromide [Celexa] 40 mg PO at bedtime #30 11/03/15 Hydrocodone Bit/Acetaminophen [[place] 5-325] 1 each PO TID 02/13/17 Ibuprofen 800 mg PO Q8H PRN 12/28/17 Disposition Discussed With: Patient
[2017-12-28 21:46] VITALS: BP 106/76; TEMP 98.2; BMI 28.7
--- NOTE | 2017-12-28 23:05 | DI ---
Exam: Single view of the chest. Comparison: None available. Reason for exam: Chest pain. FINDINGS: No pneumothorax, pleural effusion, or focal consolidation. The cardiac silhouette is not enlarged. The imaged osseous structures appear grossly unremarkable without acute fracture. Impression: No acute cardiopulmonary process.
[2017-12-28] MEDS ORDERED: TORADOL IM STA (23:43)
[2017-12-28] MEDS ORDERED: TORADOL IVP STA (23:46)
--- NOTE | 2017-12-29 00:58 | CT ---
Exam: CT angiography of the chest History: Elevated D-dimer and chest pain Technique: [address] of the chest utilizing CT angiography protocol. Multiplanar and max imum intensity projection reformations were performed. FINDINGS: The exam is technically adequate for evaluation of pulmonary arteries and aorta. There ar e no pulmonary artery filling defects. The aorta is normal. The lung. No pulmonary parenchymal abn ormalities. No pathologic lymph node enlargement or abundance of mediastinum. No chest wall abnorma lities. Small ascites seen in the upper abdomen. Question perisplenic fluid. Spleen diameter of 14 x 12 cm is enlarged. Impression: 1. No evidence of pulmonary artery thrombus. No acute findings of the chest 2. Incidental ascites and perisplenic fluid in the upper abdomen. Fluid density is elevated. Canno t exclude hemoperitoneum. Abdominal CT recommended.
[2017-12-29] MEDS ORDERED: NORCO 5-325 PO STA (02:23)
== END 2017-12-29 07:34 | disposition home or self-care (01) ==
LOC: ED 21:26
DX: R07.89 Other chest pain (principal); I10 Essential (primary) hypertension; R06.02 Shortness of breath; I25.2 Old myocardial infarction; D64.9 Anemia, unspecified; E05.90 Thyrotoxicosis, unspecified without thyrotoxic crisis or storm; F17.210 Nicotine dependence, cigarettes, uncomplicated; Z79.899 Other long term (current) drug therapy
CPT/HCPCS: 36415; 80053; 82550; 84484; 85025; 85379; 93005; 93010; 96374; 99283

== ENCOUNTER 2018-01-15 13:24 | Outpatient (CLI) | END 2018-01-15 13:25 | disposition home or self-care (01) | LOC: RAD 13:24 | PROVIDERS: ATTEND Internal Medicine | DX: Z12.31 Encounter for screening mammogram for malignant neoplasm of breast (principal) | CPT/HCPCS: 77067 ==

== ENCOUNTER 2018-09-30 00:06 | Outpatient (CLI) | END 2018-09-30 00:24 | disposition critical access hospital (66) | LOC: AMBL 00:06 | PROVIDERS: ATTEND Emergency Medicine | DX: F99 Mental disorder, not otherwise specified (principal) ==

== ENCOUNTER 2018-10-20 21:29 | Emergency (ER) ==
[2018-10-20 21:38] VITALS: BP 141/92; TEMP 98.9; BMI 30.2
[2018-10-20] MEDS ORDERED: LIDOCAINE HCL 1% SDV SUBCUT STA (21:40)
[2018-10-20] MEDS ORDERED: TENIVAC IM ONE (21:41)
--- NOTE | 2018-10-20 21:59 | ED.PDOC ---
General ED Provider: Dr. REGINO WESTBROOK-ER Chief Complaint: Hand Laceration Stated Complaint: i cut my finger on a dish Time Seen by Physician: 21:35 Mode of Arrival: Walk-In Information Source: Patient Exam Limitations: No limitations Primary Care Provider: CHAITANYA WOODS Nursing and Triage Documentation Reviewed and Agree: Yes Does patient meet sepsis criteria?: No System Inflammatory Response Syndrome: Not Applicable Sepsis Protocol: For patient's 13 years and over: Temp is 96.8 and below OR 101 and greater Pulse >90 BPM Resp >20/minute Acutely Altered Mental Status Are patient's symptoms suggestive of a new infection, such as: -Pneumonia -Skin, Soft Tissue -Endocarditis -UTI -Bone, Joint Infection -Implantable Device -Acute Abdominal Infection -Wound Infection -Meningitis -Blood Stream Catheter Infection -Unknown Skin Complaint Exam - Laceration/Abrasion/Hand Complaint/Exam Location of Injury: Left, Hand Mechanism of Injury: Laceration Onset/Duration: 30 min Symptoms Are: Still present Initial Severity: Mild Current Severity: Mild Aggravating: Movement Alleviating: Compression Associated Signs and Symptoms: Denies: Fever, Chills, Erythema, Numbness, Tingling Differential Diagnoses: Laceration Review of Systems - Review Of Systems Constitutional: Reports: No symptoms Eyes: Reports: No symptoms Ears, Nose, Mouth, Throat: Reports: No symptoms Respiratory: Reports: No symptoms Cardiac: Reports: No symptoms GI: Reports: No symptoms : Reports: No symptoms Musculoskeletal: Reports: No symptoms Skin: Reports: No symptoms Neurological: Reports: No symptoms Endocrine: Reports: No symptoms Hematologic/Lymphatic: Reports: No symptoms All Other Systems: Reviewed and Negative Past Medical History - Past Medical History Previously Healthy: Yes Endocrine: Reports: Hyperthyroid Cardiovascular: Reports: Hypertension Respiratory: Reports: None Hematological: Reports: Anemia Gastrointestinal: Reports: None Genitourinary: Reports: None Neuro/Psych: Reports: Migraine, Anxiety, Depression Musculoskeletal: Reports: None, Back Pain ( NECK AND BACK PROBLEMS ) Cancer: Reports: None Last Menstrual Period: 10/03/18 Other Pertinent Past Medical History: ADD A - Surgical History General Surgical History: Reports: (x4). Denies: Hysterectomy (D&C) - Family History Family History: Reports: Unknown - Social History Smoking Status: Current every day smoker, Heavy tobacco smoker Hx Substance Use: No Alcohol Screening: None - Immunizations Tetanus Shot up to Date: No (unknown) Physical Exam - Physical Exam Appearance: Well-appearing, No pain distress, Well-nourished Pain Distress: Mild Eyes: JAILENE, EOMI, Conjunctiva clear ENT: Ears normal, Nose normal, Oropharynx normal Neck: Supple Respiratory: Airway patent, Breath sounds clear, Breath sounds equal, Respirations nonlabored Cardiovascular: RRR, Pulses normal, No rub, No murmur GI/: Soft, Nontender, No masses, Bowel sounds normal, No Organomegaly Musculoskeletal: Normal strength, ROM intact, No edema, No calf tenderness Skin: Warm, Dry, Normal color Neurological: Sensation intact, Motor intact, Reflexes intact, Cranial nerves intact, Alert, Oriented Psychiatric: Affect appropriate, Mood appropriate Procedures - Laceration/Wound Repair No standard instances Wound Description: Stellate Wound Length (cm): 2cm left index finger Wound Explored: Clean Wound Irrigated: No Wound Prep: Hibiclens Anesthesia: Lidocaine Suture Size and Type: 4.0 prolene Number of Sutures: 6 Layer Closure?: No Sterile Dressing Applied?: Yes Splint Applied?: No Sling Applied?: No Critical Care Note - Critical Care Note Total Time (mins): 0 Course - Course Orders, Labs, Meds: Orders Category Date Time Status Lidocaine HCl/Pf [Lidocaine HCl 1% Sdv] MEDS 10/20/18 21:40 Discontinued 5 ml SUBCUT ONCE STA Tetanus and Diphtheria Tox/Pf [Tenivac] MEDS 10/20/18 21:41 Discontinued 0.5 ml IM .ONCE ONE Medications Discontinued Medications Generic Name Dose Route Start Last Admin Trade Name Freq PRN Reason Stop Dose Admin Lidocaine HCl 5 ml 10/20/18 21:40 10/20/18 21:59 Lidocaine Hcl 1% Sdv SUBCUT 10/20/18 21:41 5 ml ONCE STA Administration Tetanus/Diphtheria Toxoids Adsorbed 0.5 ml 10/20/18 21:41 10/20/18 21:54 Tenivac IM 10/20/18 21:42 0.5 ml .ONCE ONE Administration Vital Signs: Temp Pulse Resp BP Pulse Ox 10/20/18 21:30 98.9 F 103 H 20 141/92 H 98 Departure - Departure Time of Disposition: 21:58 Disposition: HOME SELF-CARE Discharge Problem: Laceration of hand Instructions: Finger Laceration (ED) Condition: Good Pt referred to PMD for follow-up: Yes IPMP verified?: No Additional Instructions: keep clean and dry---sutures out in 7 days---return if any signs of infection Allergies/Adverse Reactions: Allergies TAPE ADHESIVE Adverse Reaction (Uncoded 10/20/18 21:37) RASH/BLISTER Home Medications: Ambulatory Orders Gabapentin [Neurontin] 300 mg PO TID 12/12/13 Dextroamphetamine/Amphetamine [Adderall 15 mg Tablet] 30 mg PO BID 03/02/14 Ferrous Sulfate [Iron] 325 mg PO TID 03/02/14 Cyclobenzaprine HCl [Flexeril] 10 mg PO BID PRN 12/02/14 Clonazepam [Klonopin] 0.5 mg PO BID 09/29/15 Citalopram Hydrobromide [Celexa] 40 mg PO at bedtime #30 11/03/15 Hydrocodone Bit/Acetaminophen [[place] 5-325] 1 each PO TID 02/13/17 Ibuprofen 800 mg PO Q8H PRN 12/28/17 Divalproex Sodium [Depakote] 500 mg PO BID 10/20/18 Disposition Discussed With: Patient
== END 2018-10-20 22:18 | disposition home or self-care (01) ==
LOC: ED 21:29
DX: S61.211A Laceration without foreign body of left index finger without damage to nail, initial encounter (principal); W25.XXXA Contact with sharp glass, initial encounter
CPT/HCPCS: 90471; 90714; 99283

== ENCOUNTER 2018-10-27 19:07 | Emergency (ER) ==
[2018-10-27 19:11] VITALS: BP 132/91; TEMP 99.3; BMI 28.1
[2018-10-27] MEDS ORDERED: CLEOCIN PO STA (19:25)
[2018-10-27] MEDS ORDERED: BACTROBAN TP STA (19:25)
--- NOTE | 2018-10-27 19:28 | ED.PDOC ---
General ED Provider: Dr. REGINO WESTBROOK-ER Chief Complaint: Wound Check Stated Complaint: my lac was healing until yesterday and it started swelling Time Seen by Physician: 19:10 Mode of Arrival: Walk-In Information Source: Patient Exam Limitations: No limitations Primary Care Provider: CHAITANYA WOODS Nursing and Triage Documentation Reviewed and Agree: Yes Does patient meet sepsis criteria?: No System Inflammatory Response Syndrome: Not Applicable Sepsis Protocol: For patient's 13 years and over: Temp is 96.8 and below OR 101 and greater Pulse >90 BPM Resp >20/minute Acutely Altered Mental Status Are patient's symptoms suggestive of a new infection, such as: -Pneumonia -Skin, Soft Tissue -Endocarditis -UTI -Bone, Joint Infection -Implantable Device -Acute Abdominal Infection -Wound Infection -Meningitis -Blood Stream Catheter Infection -Unknown Skin Complaint Exam - Skin/Soft Tissue Complaint/Exam Onset/Duration: 2 4hrs Symptoms Are: Still present Timing: Constant Initial Severity: Mild Current Severity: Mild Location: right hand Character: Reports: Redness, Swelling Aggravating: Reports: None Alleviating: Reports: None Associated Signs and Symptoms: Reports: Drainage, Red streaks Related History: Reports: Recent trauma Related Surgical History: Reports: None Recent Exposure to Others w/Similar Symptoms: No Skin Findings: Present: Erythema Joint Tenderness Present: No Differential Diagnoses: Infection Review of Systems - Review Of Systems Constitutional: Reports: No symptoms Eyes: Reports: No symptoms Ears, Nose, Mouth, Throat: Reports: No symptoms Respiratory: Reports: No symptoms Cardiac: Reports: No symptoms GI: Reports: No symptoms : Reports: No symptoms Musculoskeletal: Reports: No symptoms Skin: Reports: No symptoms Neurological: Reports: No symptoms Endocrine: Reports: No symptoms Hematologic/Lymphatic: Reports: No symptoms All Other Systems: Reviewed and Negative Past Medical History - Past Medical History Previously Healthy: Yes Endocrine: Reports: Hyperthyroid Cardiovascular: Reports: Hypertension Respiratory: Reports: None Hematological: Reports: Anemia Gastrointestinal: Reports: None Genitourinary: Reports: None Neuro/Psych: Reports: Migraine, Anxiety, Depression Musculoskeletal: Reports: None, Back Pain ( NECK AND BACK PROBLEMS ) Cancer: Reports: None Last Menstrual Period: September Other Pertinent Past Medical History: ADD A - Surgical History General Surgical History: Reports: (x4). Denies: Hysterectomy (D&C) - Family History Family History: Reports: Unknown - Social History Smoking Status: Current every day smoker, Heavy tobacco smoker Hx Substance Use: No Alcohol Screening: None Physical Exam - Physical Exam Appearance: Well-appearing, No pain distress, Well-nourished Eyes: JAILENE, EOMI, Conjunctiva clear ENT: Ears normal, Nose normal, Oropharynx normal Neck: Supple Respiratory: Airway patent Cardiovascular: RRR GI/: Soft, Nontender, No masses, Bowel sounds normal, No Organomegaly Musculoskeletal: Normal strength Skin: Warm, Dry, Normal color Neurological: Sensation intact, Motor intact, Reflexes intact, Cranial nerves intact, Alert, Oriented Psychiatric: Affect appropriate, Mood appropriate Critical Care Note - Critical Care Note Total Time (mins): 0 Course - Course Orders, Labs, Meds: Orders Category Date Time Status WOUND CULTURE Stat LAB 10/27/18 19:16 Ordered Clindamycin HCl [Cleocin] MEDS 10/27/18 19:25 Stat 300 mg PO ONCE STA Mupirocin [Bactroban] MEDS 10/27/18 19:25 Stat 1 applic TP ONCE STA Medications Generic Name Dose Route Start Last Admin Trade Name Vannessa PRN Reason Stop Dose Admin Clindamycin HCl 300 mg 10/27/18 19:25 Cleocin PO 10/27/18 19:26 ONCE STA Mupirocin 1 applic 10/27/18 19:25 Bactroban TP 10/27/18 19:26 ONCE STA Vital Signs: Temp Pulse Resp BP Pulse Ox 10/27/18 19:07 99.3 F 114 H 18 132/91 H 98 Departure - Departure Time of Disposition: 19:28 Disposition: HOME SELF-CARE Discharge Problem: Wound Instructions: Laceration (ED) Condition: Good Pt referred to PMD for follow-up: Yes IPMP verified?: No Additional Instructions: wash wound with soap aNd water only----apply bactroban to the wound bid till healed---clindamycin 300mg qid x 7 days---its important to see your pcp in 48hrs to recheck the wound Allergies/Adverse Reactions: Allergies TAPE ADHESIVE Adverse Reaction (Uncoded 10/20/18 21:37) RASH/BLISTER Home Medications: Ambulatory Orders Gabapentin [Neurontin] 300 mg PO TID 12/12/13 Dextroamphetamine/Amphetamine [Adderall 15 mg Tablet] 30 mg PO BID 03/02/14 Ferrous Sulfate [Iron] 325 mg PO TID 03/02/14 Cyclobenzaprine HCl [Flexeril] 10 mg PO BID PRN 12/02/14 Clonazepam [Klonopin] 0.5 mg PO BID 09/29/15 Citalopram Hydrobromide [Celexa] 40 mg PO at bedtime #30 11/03/15 Hydrocodone Bit/Acetaminophen [[place] 5-325] 1 each PO TID 02/13/17 Ibuprofen 800 mg PO Q8H PRN 12/28/17 Divalproex Sodium [Depakote] 500 mg PO BID 10/20/18 Disposition Discussed With: Patient
[2018-10-27] MEDS ORDERED: POLYSPORIN 0.9 GM PACKET TP STA (19:37)
== END 2018-10-27 19:35 | disposition home or self-care (01) ==
LOC: ED 19:07
DX: S61.411A Laceration without foreign body of right hand, initial encounter (principal); F17.210 Nicotine dependence, cigarettes, uncomplicated
CPT/HCPCS: 87070; 87186; 99283

== ENCOUNTER 2019-01-09 10:19 | Outpatient (CLI) ==
--- NOTE | 2019-01-09 11:33 | DI ---
EXAM: CERVICAL SPINE, 3 VIEWS HISTORY: Cervical arthropathy. FINDINGS: Compared to 07/05/2011. General bone density appears normal. No noticeable scoliosis is present. Lateral masses of C1 and C2 are normally aligned and the odontoid process is intact. Late ral projection reveals subtle reversal of normal lordosis at the mid spine level similar to that prev iously seen. There is no fracture, loss of vertebral body height or spondylolisthesis. Mild degener ative disc and facet disease is seen at the cervical thoracic junction unchanged since previous study IMPRESSION: 1. Mild degenerative changes of the spine similar to that previously seen.
--- NOTE | 2019-01-09 13:47 | DI ---
EXAM: Three views of the thoracic spine. History: Thoracic back pain. Findings: No acute fracture or subluxation of the thoracic spine. Disc space heights are preserved. No abnormal calcifications or radiopaque foreign bodies. No suspicious lytic or blastic osseous le sions. Impression: Normal study
--- NOTE | 2019-01-11 22:47 | MRI ---
EXAM: Cervical spine MRI without contrast. HISTORY: Cervical arthropathy. COMPARISON: Cervical spine radiographs 01/09/2099 cervical spine MRI 09/28/2016. TECHNIQUE: Multiplanar, multisequence MR images were acquired of the cervical spine without contrast . FINDINGS: The craniocervical junction is normal and the cervical cord has no abnormal intramedullary T2 hyperintensities. There is minor mid cervical dextroscoliosis centered at C4-5 and there is dennys r cervicothoracic levoscoliosis. There is straightening usual cervical lordosis. The cervical verte bra are normal in height and intrinsic bone marrow signal. There is minor flexion of the cervical sp ine centered at C3-4 and there is minor ventral spondylosis at C4-5, C5-6 and C6-7. There is desicca tion of the intervertebral discs from C3-4 to C6-7. Several scattered perineural cysts are present. There is bright T2 signal fluid in bilateral petrous apex air cells and there is a mild polypoid muc osal thickening right maxillary antrum.. There are enlarged nerve root sleeves bilaterally at C1-2. There are no paravertebral masses. Visualized lung apices are clear. C2-3: The intervertebral disc is normal. There is mild right hypertrophic facet arthropathy without foraminal stenosis. C3-4: There is a mild posterior disc bulge without central canal stenosis. Neural foramina are pat ent. C4-5: There is a mild disc bulge, minor left uncovertebral hypertrophy and mild left facet arthropat hy. There is minor bilateral foraminal stenosis. C5-6: There is a minor disc bulge, minor right uncovertebral hypertrophy and mild left hypertrophic facet arthropathy. There is mild bilateral foraminal stenosis. C6-7: There is ventral spondylosis and mild bilateral hypertrophic facet arthropathy. Small bilater al perineural cysts are present. There is mild left foraminal stenosis. C7-T1: The intervertebral disc is normal. Bilateral perineural cysts are present. There is mild ri ght and minor left hypertrophic facet arthropathy without foraminal stenosis. IMPRESSION: 1. No change mild cervical degenerative spondylosis and facet arthropathy. 2. No cervical disc herniations, central canal stenosis or myelomalacia.
== END 2019-01-09 10:20 | disposition home or self-care (01) ==
LOC: RAD 10:19
PROVIDERS: ATTEND Nurse Practitioner Family
DX: M50.121 Cervical disc disorder at C4-C5 level with radiculopathy (principal); M47.812 Spondylosis without myelopathy or radiculopathy, cervical region; M47.22 Other spondylosis with radiculopathy, cervical region; M51.26 Other intervertebral disc displacement, lumbar region; M51.27 Other intervertebral disc displacement, lumbosacral region; M51.36 Other intervertebral disc degeneration, lumbar region; M51.37 Other intervertebral disc degeneration, lumbosacral region; M47.816 Spondylosis without myelopathy or radiculopathy, lumbar region; M47.817 Spondylosis without myelopathy or radiculopathy, lumbosacral region

== ENCOUNTER 2019-02-12 13:50 | Observation (INO) ==
[2019-02-12 13:54] VITALS: BMI 25.9
--- NOTE | 2019-02-12 14:31 | ED.PDOC ---
General ED Provider: Dr. KRUPA KIRBY Chief Complaint: Facial Injury Stated Complaint: History of abscesses including hospitalization and IV antibiotics. Has small draining lesion L side of head. This morning woke up with eye swollen shut. Time Seen by Physician: 14:20 Mode of Arrival: Walk-In Information Source: Patient Exam Limitations: No limitations Primary Care Provider: CHAITANYA WOODS Nursing and Triage Documentation Reviewed and Agree: Yes Does patient meet sepsis criteria?: No System Inflammatory Response Syndrome: Not Applicable Sepsis Protocol: For patient's 13 years and over: Temp is 96.8 and below OR 101 and greater Pulse >90 BPM Resp >20/minute Acutely Altered Mental Status Are patient's symptoms suggestive of a new infection, such as: -Pneumonia -Skin, Soft Tissue -Endocarditis -UTI -Bone, Joint Infection -Implantable Device -Acute Abdominal Infection -Wound Infection -Meningitis -Blood Stream Catheter Infection -Unknown Review of Systems - Review Of Systems Constitutional: Reports: No symptoms Eyes: Reports: Other (L eye, swollen shut - L facial swelling) Respiratory: Reports: No symptoms. Denies: Cough Cardiac: Reports: No symptoms Skin: Reports: Change in color (L face ) All Other Systems: Reviewed and Negative Past Medical History - Past Medical History Previously Healthy: Yes Endocrine: Reports: Hyperthyroid Cardiovascular: Reports: Hypertension Respiratory: Reports: None Hematological: Reports: Anemia Gastrointestinal: Reports: None Genitourinary: Reports: None Neuro/Psych: Reports: Migraine, Anxiety, Depression Musculoskeletal: Reports: None, Back Pain ( NECK AND BACK PROBLEMS ) Cancer: Reports: None Last Menstrual Period: 02/01/19 Other Pertinent Past Medical History: ADD A - Surgical History General Surgical History: Reports: (x4). Denies: Hysterectomy (D&C) - Family History Family History: Reports: Unknown - Social History Smoking Status: Current every day smoker, Heavy tobacco smoker Hx Substance Use: Yes Alcohol Screening: None Physical Exam - Physical Exam Appearance: Well-appearing (Except for marked L facial swelling including L eye swollen and closed) Ill-appearing: Mild Pain Distress: None Eyes: JAILENE (Unable to fully evaluate) ENT: Ears normal, Nose normal, Oropharynx normal Respiratory: Airway patent, Breath sounds clear Cardiovascular: RRR, Pulses normal Musculoskeletal: Normal strength, ROM intact Skin: Warm, Dry, Normal color (Except) Neurological: Sensation intact, Motor intact Psychiatric: Affect appropriate, Mood appropriate Critical Care Note - Critical Care Note Total Time (mins): 40 Comments: Review of blood work, CT scan, discussion with Hospitalist, evaluation of pt prior history Course - Course Hematology/Chemistry: 02/13/19 04:45 02/13/19 04:45 Orders, Labs, Meds: Lab Review 02/12/19 02/12/19 02/12/19 14:50 14:50 14:50 WBC 6.33 RBC 4.03 L Hgb 11.7 L Hct 37.0 MCV 91.8 MCH 29.0 MCHC 31.6 L RDW Coeff of Michelle 14.7 Plt Count 188 Immature Gran % (Auto) 0.2 Neut % (Auto) 59.8 Lymph % (Auto) 22.3 Hartley % (Auto) 12.5 H Eos % (Auto) 3.8 Baso % (Auto) 1.4 Immature Gran # (Auto) 0.0 Neut # (Auto) 3.8 Lymph # (Auto) 1.4 Hartley # (Auto) 0.8 Eos # (Auto) 0.2 Baso # (Auto) 0.1 Sodium 136.2 Potassium 3.60 Chloride 100.5 Carbon Dioxide 32.3 H Anion Gap 7.00 BUN 20.1 H Creatinine 0.59 L Estimated GFR (MDRD) 115.00 BUN/Creatinine Ratio 34.06 Glucose 95.7 Calcium 9.30 Total Bilirubin 0.39 AST 15.9 ALT 9.8 Alkaline Phosphatase 53.6 Total Protein 6.78 Albumin 3.95 Globulin 2.83 Albumin/Globulin Ratio 1.39 Serum , Qual Negative Orders Category Date Time Status ACTIVITY .Up ad Saranya CARE 02/12/19 16:58 Completed INTAKE & OUTPUT Q8HR CARE 02/12/19 16:58 Active NPO REMINDER: IMAGING ONCE CARE 02/12/19 14:29 Completed VITAL SIGNS Q4HR CARE 02/12/19 16:58 Active VITAL SIGNS Q4HR CARE 02/12/19 16:58 Completed REGULAR DIET DIETARY 02/12/19 Dinner Ordered BLOOD CULTURE (ED ONLY) Stat LAB 02/12/19 15:15 Received CBC W/ AUTO DIFF DAILY@0600 LAB 02/13/19 04:45 Completed CBC W/ AUTO DIFF DAILY@0600 LAB 02/14/19 06:00 Ordered CBC W/ AUTO DIFF Stat LAB 02/12/19 14:50 Completed COMPREHENSIVE METABOLIC PANEL DAILY@0600 LAB 02/13/19 04:45 Completed COMPREHENSIVE METABOLIC PANEL DAILY@0600 LAB 02/14/19 06:00 Ordered COMPREHENSIVE METABOLIC PANEL Stat LAB 02/12/19 14:50 Completed SERUM Stat LAB 02/12/19 14:50 Completed Cefepime 1 gm Vial [Maxipime 1 gm Vial] 1 gm MEDS 02/12/19 18:00 Discontinued 0.9 % Sodium Chloride [Sodium Chloride] 50 ml IV Q12HR Diphenhydramine Inj [Benadryl] 25 mg MEDS 02/12/19 18:00 Active 0.9 % Sodium Chloride [Sodium Chloride] 100 ml IV Q6HR Methylprednisolone Sod Succ/Pf [Solu-Medrol 40 mg] MEDS 02/12/19 18:00 Active 40 mg IVP Q6HR Sodium Chloride 0.9% [Sodium Chloride] 1,000 ml MEDS 02/12/19 17:00 Active IV 75 mls/hr Vancomycin HCl [Vancomycin] 1.25 gm MEDS 02/12/19 19:00 Active 0.9 % Sodium Chloride [Sodium Chloride] 250 ml IV Q8H RESUSCITATION STATUS Routine OTHERS 02/12/19 16:[address] MAXILLOFACIAL W/CONTRAST Stat RADS 02/12/19 14:28 Completed Medications Generic Name Dose Route Start Last Admin Trade Name Freq PRN Reason Stop Dose Admin Amoxicillin/Clavulanate Potassium 1 tab 02/13/19 07:30 Augmentin 875-125 Mg Tab PO 02/16/19 07:29 BIDWM SHAKIR Enoxaparin Sodium 40 mg 02/13/19 07:30 Lovenox SUBCUT DAILY SHAKIR Diphenhydramine HCl 25 mg/ 100.5 mls @ 100 mls/hr 02/12/19 18:00 02/13/19 06: 39 Sodium Chloride IV 100 mls/hr Q6HR SHAKIR Administration Sodium Chloride 1,000 mls @ 75 mls/hr 02/12/19 17:00 02/12/19 19:38 Sodium Chloride IV 75 mls/hr .[id number] SHAKIR Administration Vancomycin HCl 1.25 gm/ Sodium 250 mls @ 125 mls/hr 02/12/19 19:00 02/13/19 04:27 Chloride IV 02/15/19 18:59 125 mls/hr Q8H SHAKIR Administration Methylprednisolone Sodium Succinate 40 mg 02/12/19 18:00 02/13/19 06:39 Solu-Medrol 40 Mg IVP 40 mg Q6HR SHAKIR Administration Morphine Sulfate 2 mg 02/12/19 18:49 02/12/19 19:53 Morphine 2 Mg/Ml Syringe IVP 2 mg Q4H PRN Administration facial pain Nicotine 1 patch 02/12/19 19:00 02/12/19 19:44 Nicoderm 21 Mg TD 1 patch DAILY SHAKIR Administration Non-Formulary Medication 0.5 mg 02/12/19 19:00 02/12/19 22:09 Clonazepam [Klonopin] PO Not Given TID SHAKIR Non-Formulary Medication 30 mg 02/12/19 19:00 02/12/19 22:09 Dextroamphetamine/Amphetamine [Adderall 15 Mg Tablet] PO Not Given BID [facility] Non-Formulary Medication 500 mg 02/12/19 19:00 02/12/19 22:09 Divalproex Sodium [Depakote] PO Not Given BID [facility] Non-Formulary Medication 325 mg 02/12/19 19:00 02/12/19 22:08 Ferrous Sulfate [Iron] PO Not Given TID [facility] Non-Formulary Medication 300 mg 02/12/19 19:00 02/12/19 22:08 Gabapentin [Neurontin] PO Not Given TID SHAKIR Trimethoprim/Sulfamethoxazole 2 tab 02/13/19 07:30 Bactrim Ds 800/160 Mg PO 02/20/19 07:29 Q12HR [facility] Discontinued Medications Generic Name Dose Route Start Last Admin Trade Name Freq PRN Reason Stop Dose Admin Cefepime HCl 1 gm/ Sodium 50 mls @ 50 mls/hr 02/12/19 18:00 02/12/19 20:47 Chloride IV 02/15/19 17:59 50 mls/hr Q12HR SHAKIR Administration Mupirocin 1 gm 02/12/19 22:40 Bactroban Ointment 1 Gram Applicator (Er) TP 02/12/19 22:41 ONCE STA Vital Signs: Temp Pulse Resp BP Pulse Ox 02/12/19 13:51 99.2 F 124 H 18 115/68 96 Departure - Departure Time of Disposition: 17:14 Disposition: ADMITTED INPATIENT Discharge Problem: Facial cellulitis Condition: Stable Pt referred to PMD for follow-up: Yes (Follow up after hospitalization) IPMP verified?: No Allergies/Adverse Reactions: Allergies TAPE ADHESIVE Adverse Reaction (Uncoded 02/12/19 13:53) RASH/BLISTER Home Medications: Ambulatory Orders Gabapentin [Neurontin] 300 mg PO TID 12/12/13 Dextroamphetamine/Amphetamine [Adderall 15 mg Tablet] 30 mg PO BID 03/02/14 Ferrous Sulfate [Iron] 325 mg PO TID 03/02/14 Cyclobenzaprine HCl [Flexeril] 10 mg PO BID PRN 12/02/14 Clonazepam [Klonopin] 0.5 mg PO TID 09/29/15 Hydrocodone Bit/Acetaminophen [[place] 5-325] 1 each PO TID 02/13/17 Divalproex Sodium [Depakote] 500 mg PO BID 10/20/18
--- NOTE | 2019-02-12 16:23 | CT ---
EXAM: CT FACIAL BONES HISTORY: Swelling around the left eye extending into the face/forehead. TECHNIQUE: CT facial bones with contrast. 3-mm axial sections. Coronal and sagital reformations. FINDINGS: There is significant peripheral soft tissue swelling of the left aspect of the face beginning at the level of the posterior mandibular body and extending superiorly off of the field of view along the le ft temporal and forehead regions. There is diffuse opacity of the subcutaneous fat consistent with c onglomerate edema and inflammation. There is no well-defined walled off fluid collection to indicate a drainable abscess. No soft tissue gas collection is seen. There is no evidence of extension into the orbits. There are several tooth root abscesses at the mandibular level although these are likel y not the etiology of the swelling and most noted on the right. The oropharyngeal structures are sym metric and the salivary glands grossly within normal limits. The paranasal sinuses have mild mucosal thickening within the maxillary cell although this is located on the right rather than the left. Th e mastoid processes are aerated. IMPRESSION: 1. Significant swelling of the left facial peripheral soft tissues without defined abscess. Conside r edema or cellulitis. 2. Poor dental health. 3. Mild right maxillary chronic paranasal sinusitis.
[2019-02-12] MEDS ORDERED: MAXIPIME 1 GM VIAL 1 GM in SODIUM CHLORIDE 50 ML IV SCH (18:00)
--- NOTE | 2019-02-12 18:14 | PCM ---
- Chief Complaint Chief Complaint: Skin infection - History of Present Illness History of Present Illness: 39 yo CF patient of Harry Rey presented to ED 02/12/19 and was seen [address] Magdiel Vera w/ CC of swelling of face. HIstory of skin infections, several abscesses requiring hospitalization. Small draining lesion left side of head. Awoke with eye swollen shut. She walked into ED today with vitals 99.2 temp, pulse 124, rr 18, bp 115/68 and pulse ox 96%. Patient reported history of hyperthyroidism, HTN, anemia, anxiety, migraines, depression, chronic neck/back pain. LMP 02/01/19 and normal for patient. No listed fam hx, current every day smoker, heavy smoker, no ETOH. Labs ordered CBC 6.33 WBC, hgb 11.7, plt 188. CMP unremarkable with sodium 136.2, K+ 3.60, cl 100.5, CO2 32.3, bun 20.1, cr 0.59 and glucose 95.7. test negative. I was contacted at 17:[address] and had discussion [address] Dr[address] Vera 1:1. I recommended vanco/cefepime to cover MRSA/ Strep pneumoniae as most likely organisms. We will cover with this until improving and then likely switch to augmentin/bactrim for D/C home in 24-[address] showed significant swelling of left facial peripheral soft tissues without abscess. Consider edema vs cellulitis. Poor dental health. Right paranasal sinusitis chronically. I queried Dr. Vera about ?allergy and we will cover overnight with solumedrol 40 and benadryl 25mg IV. No latex allergy. She does have a tape/adhesive allergy, which will be monitored. NO reported pain. Blood cultures collected. Set for vitals q 8, diet regular, CMP/ CBC in am tomorrow. I agreed to obs admit. HOme meds reviewed, adderal IR 15mg BID, Iron 325 TID, flexeril, klonopin 0.5 TID, [place] 5 TID, depakote 500 BID, neurontin 300 TID. Nursing triage reviewed. Sx present ~24 hours. Awoke with eye swollen shut drainage from sore on side of face. Area is painful. I saw patient in room 115. She has several scabs, several wounds, several healing on her abdomen, UE and LE. She lives here in [place], PCP in [facility]. Dr. Pitt Pain management. Pain is rated at 6-7/10. She cannot lay on the left side. right forearm more swollen and erythematous. She is uncomfortable. Last round of abx 1 month ago, was on keflex for her right lateral wrist base of thumb bacterial infection and augmentin for sinusits. Several skin lesions noted in various stages of healing, foream, abdomen. She has had these inner thighs and along axilla. They are consistent with hurely 2 Hidradenitis suppurativa. She has never heard of these before. We discussed her face, discussed that it is cellulitis and not an abscess. Culture taken of skin/ blood. We will treat with IV vanco/cefepime for now and will swab for MRSA. We will use topical mupirocin to all open areas. We will continue her home meds, admit to observation, photo wounds. Discussed to not scratch. We will cover with nicotine patches during hospital stay. DIscussed at length with her to f/ u with her PCP to discuss the suspected hidradenitis suppurativa on her abdomen , legs. Left face is likely true cellulitis as HS needs to be at a site where skin touches skin. We will check UDS. - Review of Systems Constitutional: No: fever, chills, weakness, sweats, fatigue, loss of appetite, other Eyes: discharge, pain. No: blurred vision, double-vision, itching, redness, photophobia, other Ears: pain. No: bleeding, drainage, ringing, hearing loss, other Nose: No: bleeding, congestion, discharge, other Throat: No: pain, swelling, voice change, other Mouth: pain. No: bleeding, swelling, other Respiratory: No: cough, shortness of air, wheeze, hemoptysis, pain with breathing, other Cardiovascular: No: chest pain, left arm pain, diaphoresis, PND, orthopnea, edema, palpitations, syncope, other Gastrointestinal: No: abdominal pain, other, nausea, vomiting, diarrhea, melena , hematemesis, hematochezia, dysphagia, constipation Genitourinary: No: dysuria, hematuria, frequency, incontinence, flank pain, vaginal discharge, abnormal bleeding, pelvic pain, other Neurological: headache. No: dizziness, seizure, numbness, weakness, speech difficulty, problems with walking, tremor, fainting, other Musculoskeletal: pain (chronic back pain). No: swelling in joints, other Skin: rash, wounds Immunology: No: hives, itching, frequent infections, difficulty healing, other Hematology: No: easy bruising, easy bleeding, swollen glands, other Endocrine: No: weight changes, cold intolerance, heat intolerance, excessive thirst, excessive hunger, polyuria, other Psychiatric: depression, anxiety, sleeplessness. No: hopelessness, suicidal, hallucinations, other Habits: tobacco use. No: substance use, alcohol use - Past Medical History Past Medical History: History of HTN, bronchitis, [id number], chronic low back/ neck pain. Hyperthyroidism, Bipolar, depression, anxiety, ADHD, behavioral disroders, chronic heavy tobacco, - Past Surgical History Past Surgical History: Csection x 4, D&C, abscess axilla and buttocks. Pap 2014 and Mammo 2016. - Allergies Allergies/Adverse Reactions: Allergies Allergy/AdvReac Type Severity Reaction Status Date / Time TAPE ADHESIVE AdvReac RASH/BLISTE Uncoded 02/12/19 13:53 R - Medications Medications: Medications Generic Name Dose Route Start Last Admin Trade Name Freq PRN Reason Stop Dose Admin Cefepime HCl 1 gm/ Sodium 50 mls @ 50 mls/hr 02/12/19 18:00 Chloride IV 02/15/19 17:59 Q12HR [facility] Diphenhydramine HCl 25 mg/ 100.5 mls @ 100 mls/hr 02/12/19 18:00 Sodium Chloride IV Q6HR [facility] Sodium Chloride 1,000 mls @ 75 mls/hr 02/12/19 17:00 Sodium Chloride IV .[id number] [facility] Vancomycin HCl 1.25 gm/ Sodium 250 mls @ 125 mls/hr 02/12/19 19:00 Chloride IV 02/15/19 18:59 Q8H [facility] Methylprednisolone Sodium Succinate 40 mg 02/12/19 18:00 Solu-Medrol 40 Mg IVP Q6HR SHAKIR - Family History Past Family History: 2 brothers in good health. MotheR HTN. Father cancer - Social History Past Social History: No transportation currently. Chronic pain management. Recurrent skin infections. Prolonged tobacco. Denied ETOH/Substances. - Body Composition Height: 5 ft 7.5 in Weight: 168 lb 8 oz Body Mass Index (BMI): 25.9 - Physical Examination HEENT: Vital Signs - 24 hr 02/12/19 02/12/19 13:51 17:41 Temperature 99.2 F 97.8 F Pulse Rate 124 H 93 H Respiratory 18 22 Rate Blood Pressure 115/68 O2 Sat by Pulse 96 100 Oximetry Constitutional: Appearance-No acute distress, Consistent with stated age. Orientation- Oriented x 3, alertGait-Normal pace, normal arm movement. Build and Nutrition-[BMI 26, mildly overweight] General- Patient is pleasant and cooperative with the interview and exam. Fidgety, restless. Integumentary: General- Left facial swelling about the upper eyelid, lower eyelid, left zygoma and along the left upper ear. She has marked erythema. She has #3 lesions dorsal forearm. #2 lateral right arm. Left arm clear except small lesion along proximal ventral elbow. small spot posterior right flank.small spot back of scalp about 3x3cm posterior scalp erythema and scaling. Bilateral ears clear. left temporal 5mm ulceratoin draining. She has several lesions on left cheek, excoriations. left cheek 1cm and 8 mm excoriations 2x8 just anterior to the ear lobe, inferior 5x5mm. armpits clear. 2 small lesion anterior chest 7 nodules with surrounding errythema along abdomen. Prominent appearance of hydradenitis suppurativa. 4 spots on right areola right lateral thigh 3 nodules on buttock. She has no lesions inner thigh, vaginal, she has no lesions on perineum, buttock clear. small nodule right lateral knee. 4 nodules left lateral thigh 2 on left lateral thigh. Palpation- Normal skin moisture/turgor. Skin is warm to touch, appropriate except for those areas above. Capillary refill is normal bilateral Upper and lower extremity. Nurse Lisa present during entire skin exam. Head/Neck: Head- normocephalic and atraumatic. Except along left upper/lower eyelid/zygoma. Neck- without visible/palpable lumps or pulsations. Palpation- No bony tenderness about head/neck along frontal, occipital, temporal (right), parietal, mastoid, jawline, zygoma, orbit or any other location on right. Left tenderness along zygoma, orbit upper/lower eyelid. NO temporal artery tenderness. No TMJ tenderness. Neck Supple. Thyroid-No thyromegaly, no nodules Eye: Bilaterally PERRLA, EOMI. Prominent edema of left upper and lower eyelid. No discharge. Upper and lower eyelids are normal on right. Sclera/conjunctiva normal without discharge bilaterally. Cornea is normal and clear. Lens is normal bilaterally. Eyeball appears normal. No ciliary flushing, no conjunctival injection. ENMT: Pinna- normal without tenderness or erythema. External auditory canal Left- normal without erythema or discharge, no excessive cerumen. External auditory canal Right-normal without erythema or discharge, no excessive cerumen. TM left- Lee/pearly, normal light reflex and anatomy TM Right- Lee/ pearly, normal light reflex and anatomy Hearing Assessment-normal to conversational speech. Nose and sinus- No sinus tenderness along frontal/ maxillary region. External appearance normal and midline. Nares- bilateral quiet airflow, no discharge. Nasal mucosa- No bleeding noted and no ulcerations observed. [place], moist. Turbinates non boggy. Lips- normal color, moist without cracks/lesions Oral Cavity/Palate- hard/soft palate intact without lesions, oral mucosa pink and moist. Dentition assessed and poor, missing teeth/broken teeth Tongue normal midline. Oropharynx- no pharyngeal erythema, Uvula midline. No post nasal drip. No exudate. Salivary glands- Non tender to palpation CHEST/LUNG: Inspection- symmetric chest wall no pectus deformity. Normal effort , no distress, no use of accessory muscles. Palpation- nontender sternum, ribline. No abnormal pulsations. Auscultation- Breath sounds normal throughout all lung king. Normal tracheal sounds, Normal bronchial sounds overlying sternum, Bronchovessicular sounds normal between scapulae posteriorly, Normal vessicular breath sounds heard throughout periphery. Lungs are clear today. Adventitious sounds- No wheezes, rales, rhonchi. CARDIOVASCULAR: Carotid artery- normal, no bruits or abnormal pulsations. Jugular vein- no pulsations. Palpation/Percussion- Normal PMI, no palpable thrill Auscultation- Regular rate and rhythm. No murmur noted in sitting, supine positions. Extremities- no digital clubbing, cyanosis, edema, increased warmth. ABDOMEN: Inspection- normal and no visible pulsations. Normal contour. Auscultation- Bowel sounds normal, no abdominal bruits. Palpation/Percussion- soft, non-tender, no rebound tenderness, no rigidity (guarding), no jar tenderness, no masses. Liver-no hepatomegaly, Spleen no splenomegaly, Hernias - none. Rectal not examined. Peripheral Vascular: Upper extremity Left- Normal temperature with pink nailbeds and no ulcerations. Upper extremity Right- Normal temperature with pink nailbeds and no ulcerations. Lower extremity- Normal temperature with pink nailbeds and no ulcerations. DP pulses 2+ bilaterally. Pedal hair intact. Normal capillary refill. Edema- No edema. Musculoskeletal: Generalized-No generalized swelling or edema of extremities, no digital clubbing or cyanosis, neurovascularly intact all four extremities. Upper extremity- Symmetrical posture. No visible deformity. Normal sensation along medial and lateral upper extremity proximally and distally. NO tenderness overlying shoulder, lateral/medial epicondyle. Senior Nuclear Medicine Technologist 5/5 and strength 5/5 bilateral UE. Elbow palpated, no tenderness overlying olecranon. Normal supination, pronation to active/passive ROM and to resisted rotation. Bicep insertion/tricep insertion appear normal without obvious pathology. Rotator cuff evaluated and intact. Normal wrist ROM bilaterally. Normal hand movement, intrinsic muscles of hands normal. No tenderness to palpation of hands/wrists/ elbows. Lower extremity- Hip: Not tender to palpation, no pain, no swelling, edema or erythema of surrounding tissue, normal strength and tone. Normal appearing hip ROM bilaterally without pain. Knee: Knee ROM normal. No tenderness overlying trochanters, no tenderness about patella, quad tendon, patellar tendon. No tenderness at tibial tuberosity. Ankle: normal ROM not tender to palpation along medial/lateral malleolus. Foot: Normal movement of toes, no tenderness bilateral feet/toes. Normal foot type. Spine/Ribs- Paraspinal tenderness along C/T/L spine. Normal appearing ROM about spine. Neurological: General- Moves all 4 extremities symmetrically. Symmetrical face and body posture. Cranial nerves- individually evaluated II-XII and intact. PERRLA, Normal EOMI, visual/special senses appear intact, Face is symmetrical and normal sensation/movement, normal tongue, normal strength/posture of neck musculature. Reflexes- intact with DTR 2+ patellar, Achilles, bicep, brachial, tricep. Ankle clonus normal with 2 beats. Strength- 5/5 bilateral UE and LE. Soft touch- intact bilateral UE and LE. Temperature sensation- intact bilateral UE and LE. Neuropsych: Oriented- Person, place, time. (AAOx3), Mood/affect- anxious. Speech -Normal speech, normal rate, normal tone, normal use of language, volume and coherence. Thought content- normal with ability to perform basic computations and apply abstract thought/reason. Associations- intact, no SI/HI, no hallucinations, delusions, obsessions. Judgment/insight- Questionable. Fidgety , restless. Memory-Recall intact, remote and recent memory intact. Knowledge- Age appropriate fund of knowledge, concentration and attention span normal. Lymphatic: Head/Neck- normal size and non tender to palpation. Axillary- normal size and non tender to palpation. Femoral and Inguinal- normal size and non tender to palpation. She appears to have barbour stage 2 Hidradenitis suppurativa. - Lab/Tests/Diagnostic Imaging Lab/Tests/Diagnostic Imaging: Laboratory Last Values WBC 6.33 K/ul (4.6-10.2) 02/12/19 14:50 RBC 4.03 10^6/ul (4.20-5.40) L 02/12/19 14:50 Hgb 11.7 g/dl (12.0-16.0) L 02/12/19 14:50 Hct 37.0 % (37.0-47.0) 02/12/19 14:50 MCV 91.8 fl (81.0-99.0) 02/12/19 14:50 MCH 29.0 pg (27.0-31.0) 02/12/19 14:50 MCHC 31.6 (31.8-35.4) L 02/12/19 14:50 RDW Coeff of Michelle 14.7 % (11.6-14.8) 02/12/19 14:50 Plt Count 188 10^3/uL (140-440) 02/12/19 14:50 Immature Gran % (Auto) 0.2 % (0.0-5.0) 02/12/19 14:50 Neut % (Auto) 59.8 02/12/19 14:50 Lymph % (Auto) 22.3 (10.0-50.0) 02/12/19 14:50 [place] % (Auto) 12.5 (0-10) H 02/12/19 14:50 Eos % (Auto) 3.8 % (0.0-7.0) 02/12/19 14:50 Baso % (Auto) 1.4 % (0.0-3.0) 02/12/19 14:50 Immature Gran # (Auto) 0.0 (0.0-1.0) 02/12/19 14:50 Neut # (Auto) 3.8 K/ul (2.0-6.9) 02/12/19 14:50 Lymph # (Auto) 1.4 K/uL (0.60-3.4) 02/12/19 14:50 [place] # (Auto) 0.8 K/uL (0.4-2.0) 02/12/19 14:50 Eos # (Auto) 0.2 K/ul (0.0-0.7) 02/12/19 14:50 Baso # (Auto) 0.1 K/uL (0-0.2) 02/12/19 14:50 Sodium 136.2 mmol/L (134.5-145) 02/12/19 14:50 Potassium 3.60 mmol/L (3.5-5.1) 02/12/19 14:50 Chloride 100.5 mmol/L (98-107) 02/12/19 14:50 Carbon Dioxide 32.3 mmol/L (22-30.0) H 02/12/19 14:50 Anion Gap 7.00 02/12/19 14:50 BUN 20.1 mg/dL (7-17) H 02/12/19 14:50 Creatinine 0.59 mg/dL (0.60-1.30) L 02/12/19 14:50 Estimated GFR (MDRD) 115.00 mL/min 02/12/19 14:50 BUN/Creatinine Ratio 34.06 02/12/19 14:50 Glucose 95.7 mg/dL (74-106) 02/12/19 14:50 Calcium 9.30 mg/dL (8.4-10.2) 02/12/19 14:50 Total Bilirubin 0.39 mg/dL (0.2-1.3) 02/12/19 14:50 AST 15.9 U/L (14-36) 02/12/19 14:50 ALT 9.8 U/L (0-35) 02/12/19 14:50 Alkaline Phosphatase 53.6 U/L (38-126) 02/12/19 14:50 Total Protein 6.78 g/dL (6.3-8.2) 02/12/19 14:50 Albumin 3.95 g/dL (3.5-5.0) 02/12/19 14:50 Globulin 2.83 02/12/19 14:50 Albumin/Globulin Ratio 1.39 02/12/19 14:50 Serum , Qual Negative (NEGATIVE) 02/12/19 14:[address] showed significant swelling of left facial peripheral soft tissues without abscess. Consider edema vs cellulitis. Poor dental health. Right paranasal sinusitis chronically. - Assessment (1) Hidradenitis suppurativa Status: Acute Code(s): L73.2 - HIDRADENITIS SUPPURATIVA SNOMED Code(s): 93766299 (2) Smokes 1 pack of cigarettes per day Status: Acute Code(s): F17.210 - NICOTINE DEPENDENCE, CIGARETTES, UNCOMPLICATED SNOMED Code(s): 28251095 (3) Bipolar 1 disorder Status: Acute Code(s): F31.9 - BIPOLAR DISORDER, UNSPECIFIED SNOMED Code(s) : 312391208 - Plan Plan: Facial cellulitis: The patient has e/o hidradenitis within the abdomen and has known picking disease. She has several areas of excoriation to the left lateral face and numerous pickers nodules. Discussed ? prurigo nodularis, discussed drug use, denied this. She does smoke cigarettes, discussed she cannot smoke in hospital and we would cover with appropriate patches. The patient and I reviewed her symptoms. She asked me to "Cut open her face." I noted it was a cellulitis and more like jello than a pot pie and not amenable to I+D. We will cover for 24-48 hours with IV vanco/cefepime and we will await culture. Topical bactroban to all lesions, hibiclens wash with showering 1-2 x daily. Recommended to cut fingers short. Her face has e/o edema and ?allergic reaction. No swelling of lips/tongue. We discussed 24-48 hour admission with possible change to augmentin/bactrim at D?C. She would also likely benefit from doxycycline as a reasonable option to cover her for the hidradenitis suppurativa. We will resume her home meds klonopin, adderall, depakote, iron, neurontin. I have asked for her to bring her own. We will cover for pain with morphine 2 q 4 and asked her to bring rx but not use while in hospital. DDX also considered included prurigo nodularis with secondary infection. Does not appear to be Granuloma annulare. She has e/o HS as listed below but face is picked lesion. We will check UDS. She denied trauma. I asked about allergic reactions, no known injury, no known hymenopteran bite/sting, no other known bites. - Admit obs - Vanco 1.25G BID - Cefepimr 1gram BID - Morphine 2mg Q4 hours. - Bactroban topically - Hibiclens - Photograph wounds. - Vitals q 8 hours. - UDS - Consider change to oral augmentin/bactrim DS in am w/ vanco. Hidradenitis Suppurative [place] stage 2: Recommend once facial cellulitis is cleared to focus on those areas that are more likely HS, which are areas where skin touches skin. Skin bumps occur when hair follicles/sweat glands clogged/ inflamed and may be caused by nicotine. 1 pack per day: Tobacco Cessation discussed today for 2 minutes. We reviewed lifestyle choices and discussed quitting. Ready to quit status discussed. The risks and hazards of continued tobacco abuse were discussed with the patient today and total tobacco cessation as recommended. It was clearly and unambiguously explained that continued tobacco usage will adversely affect overall morbidity and mortality of the patient. Patient was informed that tobacco use can lead to numerous cancers, worsening of cardiovascular and pulmonary systems and that lung damage is often permanent and irreversible. I advised the patient to inform me if any further assistance is requested, as we can offer counseling services, nicotine replacement inhaled, patch, lozenge, gum , or prescription medications to include Chantix or Wellbutrin for assistance. I will reassess the interest in tobacco cessation at the next and all subsequent visits. - Nicoderm 21 mg - Patient instructed cannot leave hospital to use tobacco. If leaving hospital, she is considered AMA. Polypharmacy: Depakote, Benzo, Opiates, Amphetamines at home. Home meds to continue, morphine will be used instead of her norco. NO meds at d/c. DVT Prophy: Lovenox 40mg subc Diet: Regular Activity: -UP with assist - alarm Disposition: Expected length of stay 24-48hours. Work on reducing swelling about face. When improving, change abx to augmentin/bactrim x 7 days. Would like her to f/u with PCP to discuss/consider referral to gen surgeon, Rheumatology (humira sometimes used) and or referral to derm to evaluate for tx options for HS. She would likely benefit from a round of doxycycline and or topical clinda to the open areas. Keep nails cut short. >70 minutes spent today on admit.
[2019-02-12] MEDS ORDERED: BACTROBAN OINTMENT 1 GRAM APPLICATOR (ER) TP STA ×2 (18:53→22:40)
[2019-02-12] MEDS ORDERED: BENADRYL ONE (19:32)
[2019-02-12] MEDS ORDERED: MAXIPIME 1 GM VIAL ONE (19:32)
[2019-02-12] MEDS: SODIUM CHLORIDE 1,000 ML IV SCH (19:38)
[2019-02-12] MEDS: BENADRYL 25 MG in SODIUM CHLORIDE 100 ML IV SCH (19:41)
[2019-02-12] MEDS: SOLU-MEDROL 40 MG IVP SCH (19:44)
[2019-02-12] MEDS: NICODERM 21 MG TD SCH (19:44)
[2019-02-12] MEDS: MORPHINE 2 MG/ML SYRINGE IVP PRN (19:53)
[2019-02-12] MEDS: NON-FORMULARY MEDICATION (Gabapentin [Neurontin] 300 MG) PO SCH ×2 (22:07→22:08)
[2019-02-12] MEDS: NON-FORMULARY MEDICATION (Ferrous Sulfate [Iron] 325 MG) PO SCH (22:08)
[2019-02-12] MEDS: DIVALPROEX SODIUM 500 MG PO SCH ×2 (22:08→22:09)
[2019-02-12] MEDS: AMPHETAMINE PO SCH (22:09)
[2019-02-12] MEDS: DEXTROAMPHETAMINE PO SCH (22:09)
[2019-02-12] MEDS: NON-FORMULARY MEDICATION (Clonazepam [Klonopin] 0.5 MG) PO SCH (22:09)
[2019-02-12] MEDS: VANCOMYCIN 1.25 GM in SODIUM CHLORIDE 250 ML IV SCH (22:33)
[2019-02-13] MEDS ORDERED: BENADRYL ONE ×4 (00:36→18:41)
[2019-02-13] MEDS: BENADRYL 25 MG in SODIUM CHLORIDE 100 ML IV SCH ×4 (00:40→18:47)
[2019-02-13] MEDS: SOLU-MEDROL 40 MG IVP SCH ×4 (00:40→18:49)
[2019-02-13] MEDS: VANCOMYCIN 1.25 GM in SODIUM CHLORIDE 250 ML IV SCH (04:27)
--- NOTE | 2019-02-13 07:20 | PCM.PROG ---
Subjective: 39 yo CF HD #2 with facial erythema/cellulitis and several wounds on abdomen, arms/legs secondary to picking and suspected hidradenitis suppurativa. She had prominent swelling of left zygoma, upper/lower eyelid on left. Was started on vanco/cefepime and given solumedrol 40mg and benadryl to cover for ?allergic process. She has no tissue to I+D, CT scan completed and ?cellulitis/edema. Chronic smoker on nicotine patches. Lovenox for DVT prophy. REgular diet, up with assist as she has no use of her left eye at present. Morphine 2 mg q 4 hour prn ordered, home meds continued (adderall/klonopin/gabapentin/depakote) but not norco, it was held. As of 00:05 eye remained swollen per [facility] nursing note. No pruritis noted. Pain 0-7/10. Patient is currently in contact isolation. Labs this am cbc mostly unchanged. WBC 6.83, hgb 11.4, plt 178. Chemistry panel creatinine 0.49, glucose went up to 225 with the solumedrol, which was unexpected. I will add accucheck and SSI today. Tox screen positive for meth/amphetamine, negative for opiates, negative for benzo (which should both be positive). Afebrile overnight, BP stable ~114SBP/67-72. RR 16-20. 97- 98% on RA. Urine unmeasured void x 1. Documented BM x 1. 300ml documented x 1. 0.4ml/kg/hour output which is good. Today we will continue vanco but I will change the cefepime to oral bactrim DS 1 BID and augmentin 875 BID to cover for facial cellulitis. Maintenance fluids 75ml/hour NS. I will cover for glucose. Await cultures. UDS was abnl. We discussed this today and she was sorrowful about this, more sad that we discovered it than the actual problem. Suzanna present throughout entire history/exam today. REVIEW OF SYMPTOMS: (Positives bolded) General: weight loss, fever, chills, night sweats, fatigue, appetite loss HEENT: blurry vision, eye pain, eye discharge, dry eyes, decreased vision, sore throat tinnitus, bloody nose, hearing loss, sinus pain/pressure, ear pain/ pressure. Respiratory: shortness of breath, cough, hemoptysis, wheezing, pleurisy, Cardiovascular: chest pain, PND, palpitation, edema, orthopnea, syncope, swelling of extremities Gastro: Nausea, vomiting, diarrhea, hematemesis, abdominal pain, constipation Genito: hematuria, dysuria, glycosuria, hesitancy, frequency, incontinence [place]: Arthralgia, myalgia, muscle weakness, joint swelling, NSAID use Skin: rash, pruritis, sores, nail changes, skin thickening, change in wart/mole , Neuro: Migraine, numbness, ataxia, tremor, vertigo, weakness, memory loss, Irritability, dizziness Endocrine: excessive thirst, polyuria, cold intolerance, heat intolerance, goiter Psychiatric: depression, anxiety, anti-depressants, alcohol abuse, drug abuse, insomnia, change in sleep pattern and mood changes Heme/lymph: easy bruising, bleeding gums, blood clots, swollen glands, lymphedema, Allergic/immune: allergic rhinitis, hay fever, asthma, hives Objective: Vital Signs - 24 hr 02/12/19 02/12/19 02/12/19 13:51 17:41 20:00 Temperature 99.2 F 97.8 F Pulse Rate 124 H 93 H Respiratory 18 22 20 Rate Blood Pressure 115/68 O2 Sat by Pulse 96 100 Oximetry 02/12/19 02/13/19 02/13/19 22:00 02:00 05:01 Temperature 97.5 F L 97.8 F 97.7 F Pulse Rate 75 73 75 Respiratory 16 18 18 Rate Blood Pressure 114/70 115/67 114/72 O2 Sat by Pulse 97 98 98 Oximetry Constitutional: Appearance-No acute distress, Consistent with stated age. Orientation- Oriented x 3, alertGait-Normal pace, normal arm movement. Build and Nutrition-[minimally overweight] General- Patient is pleasant and cooperative with the interview and exam. Somewhat fidgety and anxious/nervouse Integumentary: General- Left facial swelling about the upper eyelid, lower eyelid, left zygoma and along the left upper ear. She has marked erythema. She has #3 lesions dorsal forearm. #2 lateral right arm. Left arm clear except small lesion along proximal ventral elbow. small spot posterior right flank.small spot back of scalp about 3x3cm posterior scalp erythema and scaling. Bilateral ears clear. left temporal 5mm ulceratoin draining. She has several lesions on left cheek, excoriations. left cheek 1cm and 8 mm excoriations 2x8 just anterior to the ear lobe, inferior 5x5mm. armpits clear. 2 small lesion anterior chest 7 nodules with surrounding errythema along abdomen. Prominent appearance of hydradenitis suppurativa. 4 spots on right areola right lateral thigh 3 nodules on buttock. She has no lesions inner thigh, vaginal, she has no lesions on perineum, buttock clear. small nodule right lateral knee. 4 nodules left lateral thigh 2 on left lateral thigh. Palpation- Normal skin moisture/turgor. Skin is warm to touch, appropriate except for those areas above. Capillary refill is normal bilateral Upper and lower extremity. Skin is markedly better, less erythematous about face and right forearm. Head/Neck: Head- normocephalic and atraumatic. Except along left upper/lower eyelid/zygoma. Neck- without visible/palpable lumps or pulsations. Palpation- No bony tenderness about head/neck along frontal, occipital, temporal (right), parietal, mastoid, jawline, zygoma, orbit or any other location on right. Left tenderness along zygoma, orbit upper/lower eyelid. Improving NO temporal artery tenderness. No TMJ tenderness. Neck Supple. Thyroid-No thyromegaly, no nodules Eye: Bilaterally PERRLA, EOMI. Prominent edema of left upper and lower eyelid. No discharge. Upper and lower eyelids are normal on right. Sclera/conjunctiva normal without discharge bilaterally. Cornea is normal and clear. Lens is normal bilaterally. Eyeball appears normal. No ciliary flushing, no conjunctival injection. ENMT: Nares- bilateral quiet airflow, no discharge. Nasal mucosa- No bleeding noted and no ulcerations observed. [place], moist. Turbinates non boggy. Lips- normal color, moist without cracks/lesions Oral Cavity/Palate- hard/soft palate intact without lesions, oral mucosa pink and moist. Dentition assessed and poor , missing teeth/broken teeth Tongue normal midline. Oropharynx- no pharyngeal erythema, Uvula midline. No post nasal drip. No exudate. Salivary glands- Non tender to palpation CHEST/LUNG: Inspection- symmetric chest wall no pectus deformity. Normal effort , no distress, no use of accessory muscles. Palpation- nontender sternum, ribline. No abnormal pulsations. Auscultation- Breath sounds normal throughout all lung king. Normal tracheal sounds, Normal bronchial sounds overlying sternum, Bronchovessicular sounds normal between scapulae posteriorly, Normal vessicular breath sounds heard throughout periphery. Lungs are clear today. Adventitious sounds- No wheezes, rales, rhonchi. CARDIOVASCULAR: Carotid artery- normal, no bruits or abnormal pulsations. Jugular vein- no pulsations. Palpation/Percussion- Normal PMI, no palpable thrill Auscultation- Regular rate and rhythm. No murmur noted in sitting, supine positions. Extremities- no digital clubbing, cyanosis, edema, increased warmth. ABDOMEN: Inspection- normal and no visible pulsations. Normal contour. Auscultation- Bowel sounds normal, no abdominal bruits. Palpation/Percussion- soft, non-tender, no rebound tenderness, no rigidity (guarding), no jar tenderness, no masses. Liver-no hepatomegaly, Spleen no splenomegaly, Hernias - none. Rectal not examined. Peripheral Vascular: Upper extremity Left- Normal temperature with pink nailbeds and no ulcerations. Upper extremity Right- Normal temperature with pink nailbeds and no ulcerations. Lower extremity- Normal temperature with pink nailbeds and no ulcerations. DP pulses 2+ bilaterally. Pedal hair intact. Normal capillary refill. Edema- No edema. Musculoskeletal: Generalized-No generalized swelling or edema of extremities, no digital clubbing or cyanosis, neurovascularly intact all four extremities. Spine/Ribs- Paraspinal tenderness along C/T/L spine. Normal appearing ROM about spine. Neurological: General- Moves all 4 extremities symmetrically. Symmetrical face and body posture. Cranial nerves- individually evaluated II-XII and intact. PERRLA, Normal EOMI, visual/special senses appear intact, Face is symmetrical and normal sensation/movement, normal tongue, normal strength/posture of neck musculature. Neuropsych: Oriented- Person, place, time. (AAOx3), Mood/affect- normal and congruent. Able to articulate well. Speech-Normal speech, normal rate, normal tone, normal use of language, volume and coherence. Thought content- normal with ability to perform basic computations and apply abstract thought/reason. Associations- intact, no SI/HI, no hallucinations, delusions, obsessions. Judgment/insight- Questionable, fidgety. Memory-Recall intact, remote and recent memory intact. Knowledge- Age appropriate fund of knowledge, concentration and attention span normal. Lymphatic: Head/Neck- normal size and non tender to palpation. Axillary- normal size and non tender to palpation. Femoral and Inguinal- normal size and non tender to palpation. Laboratory Tests 02/12/19 02/12/19 02/12/19 14:50 14:50 14:50 WBC 6.33 RBC 4.03 L Hgb 11.7 L Hct 37.0 MCV 91.8 MCH 29.0 MCHC 31.6 L RDW Coeff of Michelle 14.7 Plt Count 188 Immature Gran % (Auto) 0.2 Neut % (Auto) 59.8 Lymph % (Auto) 22.3 [place] % (Auto) 12.5 H Eos % (Auto) 3.8 Baso % (Auto) 1.4 Immature Gran # (Auto) 0.0 Neut # (Auto) 3.8 Lymph # (Auto) 1.4 [place] # (Auto) 0.8 Eos # (Auto) 0.2 Baso # (Auto) 0.1 Sodium 136.2 Potassium 3.60 Chloride 100.5 Carbon Dioxide 32.3 H Anion Gap 7.00 BUN 20.1 H Creatinine 0.59 L Estimated GFR (MDRD) 115.00 BUN/Creatinine Ratio 34.06 Glucose 95.7 Calcium 9.30 Total Bilirubin 0.39 AST 15.9 ALT 9.8 Alkaline Phosphatase 53.6 Total Protein 6.78 Albumin 3.95 Globulin 2.83 Albumin/Globulin Ratio 1.39 Serum , Qual Negative Urine Opiates Screen Ur Oxycodone Screen Urine Methadone Screen Ur Propoxyphene Screen Ur Barbiturates Screen U Tricyclic Antidepress Ur Phencyclidine Scrn Ur Amphetamine Screen U Methamphetamines Scrn U Benzodiazepines Scrn Urine Cocaine Screen U Cannabinoids Screen 02/13/19 02/13/19 02/13/19 01:25 04:45 04:45 WBC 6.83 RBC 3.94 L Hgb 11.4 L Hct 36.1 L MCV 91.6 MCH 28.9 MCHC 31.6 L RDW Coeff of Michelle 14.5 Plt Count 178 Immature Gran % (Auto) 0.4 Neut % (Auto) 91.9 Lymph % (Auto) 6.7 L [place] % (Auto) 0.6 Eos % (Auto) 0.0 Baso % (Auto) 0.4 Immature Gran # (Auto) 0.0 Neut # (Auto) 6.3 Lymph # (Auto) 0.5 L [place] # (Auto) 0.0 L Eos # (Auto) 0.0 Baso # (Auto) 0.0 Sodium 136.1 Potassium 3.77 Chloride 102.9 Carbon Dioxide 29.2 Anion Gap 7.77 BUN 18.7 H Creatinine 0.49 L Estimated GFR (MDRD) 142.00 BUN/Creatinine Ratio 38.16 Glucose 225.0 H D Calcium 8.87 Total Bilirubin 0.24 AST 13.9 L ALT 9.6 Alkaline Phosphatase 70.5 Total Protein 6.24 L Albumin 3.51 Globulin 2.73 Albumin/Globulin Ratio 1.28 Serum , Qual Urine Opiates Screen Negative Ur Oxycodone Screen Negative Urine Methadone Screen Negative Ur Propoxyphene Screen Negative Ur Barbiturates Screen Negative U Tricyclic Antidepress Negative Ur Phencyclidine Scrn Negative Ur Amphetamine Screen Positive U Methamphetamines Scrn Positive U Benzodiazepines Scrn Negative Urine Cocaine Screen Negative U Cannabinoids Screen Negative 02/14/19 02/14/19 04:40 04:40 WBC 11.62 H RBC 3.66 L Hgb 10.4 L Hct 32.9 L MCV 89.9 MCH 28.4 MCHC 31.6 L RDW Coeff of Michelle 14.5 Plt Count 186 Immature Gran % (Auto) 0.5 Neut % (Auto) 92.3 Lymph % (Auto) 4.8 L [place] % (Auto) 2.3 Eos % (Auto) 0.0 Baso % (Auto) 0.1 Immature Gran # (Auto) 0.1 Neut # (Auto) 10.7 H Lymph # (Auto) 0.6 [place] # (Auto) 0.3 L Eos # (Auto) 0.0 Baso # (Auto) 0.0 Sodium 137.2 Potassium 3.71 Chloride 107.5 H Carbon Dioxide 26.4 Anion Gap 7.01 BUN 13.7 Creatinine 0.44 L Estimated GFR (MDRD) 161.00 BUN/Creatinine Ratio 31.13 Glucose 128.4 H D Calcium 9.08 Total Bilirubin 0.20 AST 11.0 L ALT 7.8 Alkaline Phosphatase 56.8 Total Protein 6.10 L Albumin 3.39 L Globulin 2.71 Albumin/Globulin Ratio 1.25 Serum , Qual Urine Opiates Screen Ur Oxycodone Screen Urine Methadone Screen Ur Propoxyphene Screen Ur Barbiturates Screen U Tricyclic Antidepress Ur Phencyclidine Scrn Ur Amphetamine Screen U Methamphetamines Scrn U Benzodiazepines Scrn Urine Cocaine Screen U Cannabinoids Screen (1) Hidradenitis suppurativa Status: Acute Code(s): L73.2 - HIDRADENITIS SUPPURATIVA SNOMED Code(s): 30611291 (2) Smokes 1 pack of cigarettes per day Status: Acute Code(s): F17.210 - NICOTINE DEPENDENCE, CIGARETTES, UNCOMPLICATED SNOMED Code(s): 82626585 (3) Bipolar 1 disorder Status: Acute Code(s): F31.9 - BIPOLAR DISORDER, UNSPECIFIED SNOMED Code(s) : 751363042 (4) Methamphetamine abuse Status: Acute Code(s): F15.10 - OTHER STIMULANT ABUSE, UNCOMPLICATED SNOMED Code(s): 695172090 Plan: Facial cellulitis: This am I changed her from vanco/cefepime to Vanco/augmentin /bactrim DS 2 po BID. Labs monitored and WBC 6.83, hgb 11.4, plt 178 and okay. meth + discussed this with her today. Plan to d/c tomorrow if symptoms continue to improve. She denied yeast symptoms with abx, we will consider diflucan. - Continue Admit obs - Vanco 1.25G BID - Stop Cefepime 1gram BID - Continue Morphine 2mg Q4 hours. - Bactroban topically - Hibiclens - Change abx to oral augmentin BID and bactrim DS 2 PO BID - Vitals q 8 hours. - UDS Hidradenitis Suppurative [place] stage 2: Close f/u as outpatient encouraged. Meth +. Picking is present. Consider doxy once current round of abx are complete. Reviewed Skin bumps occur when hair follicles/sweat glands clogged/ inflamed and may be caused by nicotine. 1 pack per day: Tobacco Cessation discussed today for 2 minutes. We reviewed lifestyle choices and discussed quitting. Ready to quit status discussed. The risks and hazards of continued tobacco abuse were discussed with the patient today and total tobacco cessation as recommended. It was clearly and unambiguously explained that continued tobacco usage will adversely affect overall morbidity and mortality of the patient. Patient was informed that tobacco use can lead to numerous cancers, worsening of cardiovascular and pulmonary systems and that lung damage is often permanent and irreversible. I advised the patient to inform me if any further assistance is requested, as we can offer counseling services, nicotine replacement inhaled, patch, lozenge, gum , or prescription medications to include Chantix or Wellbutrin for assistance. I will reassess the interest in tobacco cessation at the next and all subsequent visits. - Nicoderm 21 mg to continue - Patient again instructed cannot leave hospital to use tobacco. If leaving hospital, she is considered AMA. Polypharmacy: Depakote, Benzo, Opiates, Amphetamines at home. Home meds to continue, morphine will be used instead of her norco. NO meds at d/c. Methamphatemine abuse: UDS + for meth. She lied initially and then said she was embarrased and that she smokes this. Never injected it. She uses this regularly , when available. I recommended today that she talk with mental health/ addiction health. DVT Prophy: Lovenox 40mg subc Diet: Regular Activity: -UP with assist - alarm Disposition: Expected length of stay 24 more hours. Await culture. Continue pain meds. Home meds for controlled Rx. Her UDS was abnl (klonopin may or may not show as benzo, but she was negative for opiates. Work on reducing swelling about face. Lengthy discussion today about drug use, tobacco use. In total > 35 minutes spent with her today about the above. She is improving. Cultures pending. Abx changes as above. Prepare for d/c tomorrow.
[2019-02-13] MEDS ORDERED: FERROUS SULFATE PO SCH (08:00)
[2019-02-13] MEDS: AUGMENTIN 875-125 MG TAB PO SCH ×3 (08:44→18:49)
[2019-02-13] MEDS: NICODERM 21 MG TD SCH (08:45)
[2019-02-13] MEDS: BACTRIM DS 800/160 MG PO SCH ×3 (08:45→20:50)
[2019-02-13] MEDS: LOVENOX SUBCUT SCH ×2 (08:45→11:24)
[2019-02-13] MEDS ORDERED: DEPAKOTE PO SCH (09:00)
[2019-02-13] MEDS ORDERED: KLONOPIN PO SCH (09:00)
[2019-02-13] MEDS ORDERED: NEURONTIN PO SCH (09:00)
[2019-02-13] MEDS: AMPHETAMINE PO SCH ×2 (11:05→20:44)
[2019-02-13] MEDS: DEXTROAMPHETAMINE PO SCH ×2 (11:05→20:44)
[2019-02-13] MEDS: DIVALPROEX SODIUM 500 MG PO SCH ×3 (11:22→20:44)
[2019-02-13] MEDS: NON-FORMULARY MEDICATION (Clonazepam [Klonopin] 0.5 MG) PO SCH ×3 (11:22→20:47)
[2019-02-13] MEDS: NON-FORMULARY MEDICATION (Gabapentin [Neurontin] 300 MG) PO SCH ×4 (11:23→20:45)
[2019-02-13] MEDS: NON-FORMULARY MEDICATION (Ferrous Sulfate [Iron] 325 MG) PO SCH ×4 (11:23→20:45)
[2019-02-13] MEDS: BACTROBAN TP SCH ×2 (15:56→20:50)
[2019-02-13] MEDS: MORPHINE 2 MG/ML SYRINGE IVP PRN (18:49)
[2019-02-13] MEDS ORDERED: VANCOMYCIN 1.5 GM in SODIUM CHLORIDE 500 ML IV SCH (21:00)
[2019-02-13] MEDS: HIBICLENS 4% TP SCH (21:39)
[2019-02-13] MEDS: SODIUM CHLORIDE 1,000 ML IV SCH (22:39)
[2019-02-14] MEDS ORDERED: BENADRYL ONE ×2 (01:15→06:33)
[2019-02-14] MEDS: SOLU-MEDROL 40 MG IVP SCH ×2 (01:18→06:36)
[2019-02-14] MEDS: BENADRYL 25 MG in SODIUM CHLORIDE 100 ML IV SCH ×2 (01:18→06:36)
--- NOTE | 2019-02-14 09:18 | PCM.DC ---
Final Diagnosis: Facial Cellulitis Hidradenitis Suppurativa Skin Picking Poor dentition Polypharmacy Methamphetamine abuse 1/2-1 pack per day tobacco Bipolar 1 disorder Leukocytosis Anemia MRSA negative (1) Hidradenitis suppurativa Status: Acute Code(s): L73.2 - HIDRADENITIS SUPPURATIVA SNOMED Code(s): 62087551 (2) Smokes 1 pack of cigarettes per day Status: Acute Code(s): F17.210 - NICOTINE DEPENDENCE, CIGARETTES, UNCOMPLICATED SNOMED Code(s): 14658628 (3) Bipolar 1 disorder Status: Acute Code(s): F31.9 - BIPOLAR DISORDER, UNSPECIFIED SNOMED Code(s) : 638757207 (4) Methamphetamine abuse Status: Acute Code(s): F15.10 - OTHER STIMULANT ABUSE, UNCOMPLICATED SNOMED Code(s): 100555157 (5) Leukocytosis Status: Acute Code(s): D72.829 - ELEVATED WHITE BLOOD CELL COUNT, UNSPECIFIED SNOMED Code(s): 959754804, 507889261 (6) Normocytic anemia Status: Acute Code(s): D64.9 - ANEMIA, UNSPECIFIED SNOMED Code(s): 108057975 (7) Steroid-induced hyperglycemia Status: Acute Code(s): R73.9 - HYPERGLYCEMIA, UNSPECIFIED SNOMED Code(s): 217656391 Reason for Hospitalization: Facial Cellulitis, Hidradenitis suppurativa, picking, Meth use. Prognosis at Discharge: Good. Facial swelling 80-90% improved. Still swelling left lateral jawline ? dental process. Antibiotics are helping. Pain is controlled. Condition at Discharge: Markedly improved. Antibiotics tolerated, pain controlled, swelling/erythema markedly better. Vitals stable. Tolerating meals. Medications at Discharge: Ambulatory Orders Medication Instructions Recorded Gabapentin [Neurontin] 300 mg PO TID 12/12/13 Dextroamphetamine/Amphetamine 30 mg PO BID 03/02/14 [Adderall 15 mg Tablet] Ferrous Sulfate [Iron] 325 mg PO TID 03/02/14 Cyclobenzaprine HCl [Flexeril] 10 mg PO BID PRN 12/02/14 Clonazepam [Klonopin] 0.5 mg PO TID 09/29/15 Hydrocodone Bit/Acetaminophen 1 each PO TID 02/13/17 [Pinon 5-325] Divalproex Sodium [Depakote] 500 mg PO BID 10/20/18 Amoxicillin/Potassium Clav 1 tab PO BIDWM 7 Days #14 tablet 02/14/19 [Augmentin 875-125 mg Tab] Chlorhexidine Gluconate [Hibiclens 1 applic TP BID 10 Days #1 bottle 02/14/19 4% Maribeth] Fluconazole [Diflucan] 150 mg PO WEEKLY 14 Days #2 tablet 02/14/19 Mupirocin [Bactroban Ointment 1 1 gm TP TID 30 Days #1 tube 02/14/19 Gram Applicator (ER)] Nicotine 21 mg [Nicoderm 21 mg] 1 patch TD DAILY 14 Days #14 02/14/19 patch.td24 Sulfamethoxazole/Trimethoprim 2 tab PO Q12HR 7 Days #28 tablet 02/14/19 [Bactrim Ds 800/160 mg] Lab/Diagnostics: Laboratory Last Values WBC 11.62 K/ul (4.6-10.2) H 02/14/19 04:40 RBC 3.66 10^6/ul (4.20-5.40) L 02/14/19 04:40 Hgb 10.4 g/dl (12.0-16.0) L 02/14/19 04:40 Hct 32.9 % (37.0-47.0) L 02/14/19 04:40 MCV 89.9 fl (81.0-99.0) 02/14/19 04:40 MCH 28.4 pg (27.0-31.0) 02/14/19 04:40 MCHC 31.6 (31.8-35.4) L 02/14/19 04:40 RDW Coeff of Michelle 14.5 % (11.6-14.8) 02/14/19 04:40 Plt Count 186 10^3/uL (140-440) 02/14/19 04:40 Immature Gran % (Auto) 0.5 % (0.0-5.0) 02/14/19 04:40 Neut % (Auto) 92.3 02/14/19 04:40 Lymph % (Auto) 4.8 (10.0-50.0) L 02/14/19 04:40 [place] % (Auto) 2.3 (0-10) 02/14/19 04:40 Eos % (Auto) 0.0 % (0.0-7.0) 02/14/19 04:40 Baso % (Auto) 0.1 % (0.0-3.0) 02/14/19 04:40 Immature Gran # (Auto) 0.1 (0.0-1.0) 02/14/19 04:40 Neut # (Auto) 10.7 K/ul (2.0-6.9) H 02/14/19 04:40 Lymph # (Auto) 0.6 K/uL (0.60-3.4) 02/14/19 04:40 [place] # (Auto) 0.3 K/uL (0.4-2.0) L 02/14/19 04:40 Eos # (Auto) 0.0 K/ul (0.0-0.7) 02/14/19 04:40 Baso # (Auto) 0.0 K/uL (0-0.2) 02/14/19 04:40 Sodium 137.2 mmol/L (134.5-145) 02/14/19 04:40 Potassium 3.71 mmol/L (3.5-5.1) 02/14/19 04:40 Chloride 107.5 mmol/L (98-107) H 02/14/19 04:40 Carbon Dioxide 26.4 mmol/L (22-30.0) 02/14/19 04:40 Anion Gap 7.01 02/14/19 04:40 BUN 13.7 mg/dL (7-17) 02/14/19 04:40 Creatinine 0.44 mg/dL (0.60-1.30) L 02/14/19 04:40 Estimated GFR (MDRD) 161.00 mL/min 02/14/19 04:40 BUN/Creatinine Ratio 31.13 02/14/19 04:40 Glucose 128.4 mg/dL (74-106) H D 02/14/19 04:40 Calcium 9.08 mg/dL (8.4-10.2) 02/14/19 04:40 Total Bilirubin 0.20 mg/dL (0.2-1.3) 02/14/19 04:40 AST 11.0 U/L (14-36) L 02/14/19 04:40 ALT 7.8 U/L (0-35) 02/14/19 04:40 Alkaline Phosphatase 56.8 U/L (38-126) 02/14/19 04:40 Total Protein 6.10 g/dL (6.3-8.2) L 02/14/19 04:40 Albumin 3.39 g/dL (3.5-5.0) L 02/14/19 04:40 Globulin 2.71 02/14/19 04:40 Albumin/Globulin Ratio 1.25 02/14/19 04:40 Serum , Qual Negative (NEGATIVE) 02/12/19 14:50 Urine Opiates Screen Negative (NEGATIVE) 02/13/19 01:25 Ur Oxycodone Screen Negative (NEGATIVE) 02/13/19 01:25 Urine Methadone Screen Negative (NEGATIVE) 02/13/19 01:25 Ur Propoxyphene Screen Negative (NEGATIVE) 02/13/19 01:25 Ur Barbiturates Screen Negative (NEGATIVE) 02/13/19 01:25 U Tricyclic Antidepress Negative (NEGATIVE) 02/13/19 01:25 Ur Phencyclidine Scrn Negative (NEGATIVE) 02/13/19 01:25 Ur Amphetamine Screen Positive (NEGATIVE) 02/13/19 01:25 U Methamphetamines Scrn Positive (NEGATIVE) 02/13/19 01:25 U Benzodiazepines Scrn Negative (NEGATIVE) 02/13/19 01:25 Urine Cocaine Screen Negative (NEGATIVE) 02/13/19 01:25 U Cannabinoids Screen Negative (NEGATIVE) 02/13/19 01:[address] showed significant swelling of left facial peripheral soft tissues without abscess. Consider edema vs cellulitis. Poor dental health. Right paranasal sinusitis chronically. Education Provided to Patient and Family: 1. Cellulitis 2. Augmentin R/B/A and SE 3. Bactrim DS R/B/A and SE 4. Vaginal candidiasis and diflucan R/B/A and SE 5. Picking/skin hygiene 6. Tobacco cessation 7. Nicoderm 8. Polypharmacy (consider f/u with mental health for addictive personality). 9. Methamphetamine avoidance 10. LIfestyle changes Follow-ups: 1. Harry Rey in 1 week. Disposition: HOME SELF-CARE Hospital Course: 39 yo CF patient of Harry Rey presented to ED 02/12/19 and was seen [address] Magdiel Vera w/ CC of swelling of face. HIstory of skin infections, several abscesses requiring hospitalization. Small draining lesion left side of advent. She awoke with left eye completely swollen shut. She walked into ED with vitals 99.2 temp, pulse 124, rr 18, bp 115/68 and pulse ox 96%. Patient reported history of hyperthyroidism, HTN, anemia, anxiety, migraines, depression , chronic neck/back pain. LMP 02/01/19 and normal for patient. No listed fam hx, current every day smoker, heavy smoker, no ETOH, denied drugs (Meth + in hospital). Labs ordered CBC 6.33 WBC, hgb 11.7, plt 188. CMP unremarkable with sodium 136.2, K+ 3.60, cl 100.5, CO2 32.3, bun 20.1, cr 0.59 and glucose 95.7. test negative. I was contacted at 17:[address] Vera 1:1. I recommended vanco/cefepime to cover MRSA/Strep pneumoniae as most likely organisms for facial cellulitis. We discussed to change to augmentin/bactrim for D/C home in ~[address] showed significant swelling of left facial peripheral soft tissues without abscess, nothing was amenable to incision/drainage. Poor dental health. Right paranasal sinusitis chronically also noted on CT. I queried Dr. Vera about ?allergy and we covered overnight with solumedrol 40mg IV once and benadryl 25mg IV once. No latex allergy. She does have a tape/adhesive allergy, which was monitored. NO reported pain. Blood cultures collected and ultimately negative. Wound culture ultimately negative. Set for vitals q 8, diet regular, CMP/CBC q am. She was admitted to observational status admission. HOme meds reviewed, adderal IR 15mg BID, Iron 325 TID, flexeril, klonopin 0.5 TID, Pinon 5 TID, depakote 500 BID, neurontin 300 TID. Nursing triage reviewed. Sx present ~24 hours. Patient admitted to room 115. She had several scabs, several wounds, several healing on her abdomen, UE and LE. She lives here in [place], PCP in [facility]. Dr. Pitt Pain management. Pain is rated at 6-7/10. She cannot lay on the left side. right forearm more swollen and erythematous than normal. She was uncomfortable. Last round of abx 1 month ago, was on keflex for her right lateral wrist base of thumb bacterial infection and augmentin for sinusits. Several skin lesions noted in various stages of healing, foream, abdomen, legs. She appears to have [place] Stage 2 hidradenitis. She has had issues fci along her inner thighs and along axilla. They are consistent with hurely 2 Hidradenitis suppurativa. She has never heard of these before. We discussed her face, discussed that it is cellulitis and not an abscess. Culture taken of skin/blood and negative ultimately as above. We initiated IV vanco/cefepime and awaited cultures. Topical mupirocin to all open areas. Lovenox for DVT prophy. REgular diet. Fall precautions due to vision impairement of left eye. 02/13/19 HD #2 facial erythema/cellulitis improving, able to open eye. vanco/ cefepime overnight. Stopped cefepime, continued vanco and added augmentin/ bactirm DS 2 PO BID. She still has no tissue to I+D, Morphine 2 mg q 4 hour prn ordered and used regularly for pain. Labs this am cbc mostly unchanged. WBC 6.83, hgb 11.4, plt 178. Chemistry panel creatinine 0.49, glucose went up to 225 with the solumedrol, which was unexpected. I added accucheck but did not use insulin. Tox screen positive for meth/amphetamine, negative for opiates, negative for benzo (which should both be positive). Afebrile overnight, BP stable ~114SBP/67-72. RR 16-20. 97-98% on RA. Urine unmeasured void x 1. Documented BM x 1. 300ml documented x 1. 0.4ml/kg/hour output which is good. Today we will continue vanco but I will change the cefepime to oral bactrim DS 1 BID and augmentin 875 BID to cover for facial cellulitis. Maintenance fluids 75ml/hour NS. HD #3 02/14/19 vitals remain stable afebrile temp 98.4, bp mildly elevated with 146/80 but will monitor. RR 16-18, O2 98% on RA, pulse rate 87-88. 3 unmeasured voids. Did have 1700 out in last 4 hours suggesting good urine output. Glucose monitored with cessation of steroids. She had mild elevation during stay. Not diabetic and no insulin given. When the steroids were stopped her sugars normalized. On day of d/c chemistry stable, CBC showed a wbc 11.62, decreased lymphs, elevated neutrophils at 10.7. ?Steroidal effect. Her WBC 11.62, her hgb 10.4 normocytic with normal RDW and mcv. Plt normal at 186. Cultures returned negative MRSA, wound culture left advent negative for growth and her blood cultures negative. With edema 80-90% better, will d/c home on augmentin/bactrim. Diflucan to be given just in case for vaginal yeast infection. Resume home meds. Encourage meeting with mental health to discuss polysubstance use/addictive personality. Avoid meth, avoid tobacco encouraged. Rx for nicoderm provided. F/U with PCP this week. She has reached maximal benefit from hospital stay, prepare to d/c home today. Vital Signs - 24 hr 02/13/19 02/13/19 02/13/19 10:00 14:00 17:40 Temperature 97.6 F 98.0 F 98.1 F Pulse Rate 88 80 91 H Pulse Rate [ Apical] Respiratory 18 20 18 Rate Blood Pressure 118/76 117/79 132/83 O2 Sat by Pulse 98 97 97 Oximetry 02/13/19 02/13/19 02/14/19 20:00 21:32 02:00 Temperature 98.2 F 97.9 F Pulse Rate 86 88 Pulse Rate [ 90 Apical] Respiratory 18 16 16 Rate Blood Pressure 133/85 118/60 O2 Sat by Pulse 96 97 Oximetry 02/14/19 05:01 Temperature 98.4 F Pulse Rate 87 Pulse Rate [ Apical] Respiratory 18 Rate Blood Pressure 146/80 H O2 Sat by Pulse 98 Oximetry Constitutional: Appearance-No acute distress, Consistent with stated age. Orientation- Oriented x 3, alertGait-Normal pace, normal arm movement. Build and Nutrition-[minimally overweight] General- Patient is pleasant and cooperative with the interview and exam. Still fidgety and nervous. Nurse evette present during exam. Integumentary: General- Left facial swelling about the upper eyelid, lower eyelid, left zygoma and along the left upper ear. is 80+% better. Erythema is all but gone, small edema. Bilateral upper/lower eyelids now fully open. She still has edema along the left lateral mandible. Tenderness locally, still no abcess to I+D. She has #3 lesions dorsal forearm raised, less erythematous #2 lateral right arm. Left arm clear except small lesion along proximal ventral elbow. small spot posterior right flank.small spot back of scalp about 3x3cm posterior scalp erythema and scaling. Bilateral ears clear. left temporal 5mm ulceratoin draining. She has several lesions on left cheek, excoriations that are now clean and healing. left cheek 1cm and 8 mm excoriations 2x8 just anterior to the ear lobe, are improved/healing. armpits remain clear. 2 small lesion anterior chest 7 nodules with surrounding errythema along abdomen. Prominent appearance of hydradenitis suppurativa along abdomen, less erythematous, scabbed.. Skin is markedly better, less erythematous about face and right forearm. Ready for d/c. Head/Neck: Head- normocephalic and atraumatic. Except along left upper/lower eyelid/zygoma. Neck- without visible/palpable lumps or pulsations. Palpation- No bony tenderness about head/neck along frontal, occipital, temporal (right), parietal, mastoid, jawline, zygoma, orbit or any other location on right. Left tenderness along zygoma, orbit upper/lower eyelid. Improving NO temporal artery tenderness. No TMJ tenderness. Neck Supple. Thyroid-No thyromegaly, no nodules Eye: Bilaterally PERRLA, EOMI. Resolved edema of left upper and lower eyelid. No discharge. Able to fully open eye now. No conjunctival involvement. ENMT: Nares- bilateral quiet airflow, no discharge. Nasal mucosa- No bleeding noted and no ulcerations observed. Coggon, moist. Turbinates non boggy. Lips- normal color, moist without cracks/lesions Oral Cavity/Palate- hard/soft palate intact without lesions, oral mucosa pink and moist. Dentition assessed and poor , missing teeth/broken teeth Tongue normal midline. Oropharynx- no pharyngeal erythema, Uvula midline. No post nasal drip. No exudate. Salivary glands- Non tender to palpation CHEST/LUNG: Inspection- symmetric chest wall no pectus deformity. Normal effort , no distress, no use of accessory muscles. Palpation- nontender sternum, ribline. No abnormal pulsations. Auscultation- Breath sounds normal throughout all lung king. Normal tracheal sounds, Normal bronchial sounds overlying sternum, Bronchovessicular sounds normal between scapulae posteriorly, Normal vessicular breath sounds heard throughout periphery. Lungs are clear today. Adventitious sounds- No wheezes, rales, rhonchi. CARDIOVASCULAR: Carotid artery- normal, no bruits or abnormal pulsations. Jugular vein- no pulsations. Palpation/Percussion- Normal PMI, no palpable thrill Auscultation- Regular rate and rhythm. No murmur noted in sitting, supine positions. Extremities- no digital clubbing, cyanosis, edema, increased warmth. ABDOMEN: Inspection- normal and no visible pulsations. Normal contour. Auscultation- Bowel sounds normal, no abdominal bruits. Palpation/Percussion- soft, non-tender, no rebound tenderness, no rigidity (guarding), no jar tenderness, no masses. Liver-no hepatomegaly, Spleen no splenomegaly, Hernias - none. Rectal not examined. Peripheral Vascular: Upper extremity Left- Normal temperature with pink nailbeds and no ulcerations. Upper extremity Right- Normal temperature with pink nailbeds and no ulcerations. Lower extremity- Normal temperature with pink nailbeds and no ulcerations. DP pulses 2+ bilaterally. Pedal hair intact. Normal capillary refill. Edema- No edema. Musculoskeletal: Generalized-No generalized swelling or edema of extremities, no digital clubbing or cyanosis, neurovascularly intact all four extremities. Spine/Ribs- Paraspinal tenderness along C/T/L spine. Normal appearing ROM about spine. Neurological: General- Moves all 4 extremities symmetrically. Symmetrical face and body posture. Cranial nerves- individually evaluated II-XII and intact. PERRLA, Normal EOMI, visual/special senses appear intact, Face is symmetrical and normal sensation/movement, normal tongue, normal strength/posture of neck musculature. Neuropsych: Oriented- Person, place, time. (AAOx3), Mood/affect- normal and congruent. Able to articulate well. Speech-Normal speech, normal rate, normal tone, normal use of language, volume and coherence. Thought content- normal with ability to perform basic computations and apply abstract thought/reason. Associations- intact, no SI/HI, no hallucinations, delusions, obsessions. Judgment/insight- Questionable, fidgety. Memory-Recall intact, remote and recent memory intact. Knowledge- Age appropriate fund of knowledge, concentration and attention span normal. Lymphatic: Head/Neck- normal size and non tender to palpation. Axillary- normal size and non tender to palpation. Femoral and Inguinal- normal size and non tender to palpation. Plan: 1. Discharge from hospital today. 2. Pending Labs: None 3. New Medications: - Hibiclens to skin daily with bathing - Can consider bleach bath with 1/4 to 1/2 cup of 5% bleach (common non concentrated bleach) to a bathtub of water. Soak for 10 minutes and then rinse. Limit to 2x weekly. Do not get into eyes, do not submerge. May cause some irritation to vagina/dry skin. Limit to 2x weekly as noted above. - Augmentin 875/125 1 by mouth twice daily - Bactrim DS 2 tab by mouth twice daily - In case of vaginal yeast infection I have sent diflucan to your pharmacy. Take pill 1 in 2-3 days and then repeat in 5-7 days as needed 4. Tobacco cessation discussed at length 5. Methamphetamine cessation discussed at length 6. Avoid Picking skin. - Good hand hygiene 7. Repeat labs in 1 week for CBC and CMP. 8. Anemia is present and should be monitored 9. Diet Resume normal diet 10. Activity: normal activity 11. >30 minutes spent with discharge today/education regarding above medical problems.
[2019-02-14] MEDS: BACTRIM DS 800/160 MG PO SCH (09:25)
[2019-02-14] MEDS: AUGMENTIN 875-125 MG TAB PO SCH (09:25)
[2019-02-14] MEDS: BACTROBAN TP SCH (09:26)
[2019-02-14] MEDS: NON-FORMULARY MEDICATION (Clonazepam [Klonopin] 0.5 MG) PO SCH (09:37)
[2019-02-14] MEDS: DEXTROAMPHETAMINE PO SCH (09:37)
[2019-02-14] MEDS: AMPHETAMINE PO SCH (09:37)
[2019-02-14] MEDS: DIVALPROEX SODIUM 500 MG PO SCH (09:38)
[2019-02-14] MEDS: NON-FORMULARY MEDICATION (Ferrous Sulfate [Iron] 325 MG) PO SCH (09:38)
[2019-02-14] MEDS: NON-FORMULARY MEDICATION (Gabapentin [Neurontin] 300 MG) PO SCH (09:38)
[2019-02-14] MEDS: HIBICLENS 4% TP SCH (09:38)
[2019-02-14] MEDS: LOVENOX SUBCUT SCH (09:39)
[2019-02-14 09:51] VITALS: BP 130/76; TEMP 97.9
== END 2019-02-14 12:30 | disposition home or self-care (01) ==
LOC: ED 13:50 → MEDSURG B 17:20 → UNDOADMOB 17:20 → INTOOBSV 17:20 → MEDSURG B 17:20
PROVIDERS: ADMIT Family Medicine; ATTEND Family Medicine
DX: F31.9 Bipolar disorder, unspecified; F15.10 Other stimulant abuse, uncomplicated; L73.2 Hidradenitis suppurativa; F17.210 Nicotine dependence, cigarettes, uncomplicated; D64.9 Anemia, unspecified; R22.0 Localized swelling, mass and lump, head; R73.9 Hyperglycemia, unspecified; Z72.0 Tobacco use; D72.829 Elevated white blood cell count, unspecified; J32.9 Chronic sinusitis, unspecified; L03.211 Cellulitis of face

== ENCOUNTER 2019-09-22 15:37 | Observation (INO) ==
--- NOTE | 2019-09-22 19:57 | ED.PDOC ---
General ED Provider: Dr. REGINO GRAYSON Chief Complaint: Abscess Stated Complaint: Pain and swelling Rt Shoulder-suspected Abscess Time Seen by Physician: 18:50 Mode of Arrival: Walk-In Information Source: Patient Exam Limitations: No limitations Primary Care Provider: CHAITANYA WOODS Nursing and Triage Documentation Reviewed and Agree: Yes Does patient meet sepsis criteria?: No System Inflammatory Response Syndrome: Not Applicable Sepsis Protocol: For patient's 13 years and over: Temp is 96.8 and below OR 101 and greater Pulse >90 BPM Resp >20/minute Acutely Altered Mental Status Are patient's symptoms suggestive of a new infection, such as: -Pneumonia -Skin, Soft Tissue -Endocarditis -UTI -Bone, Joint Infection -Implantable Device -Acute Abdominal Infection -Wound Infection -Meningitis -Blood Stream Catheter Infection -Unknown Skin Complaint Exam Skin/Soft Tissue Complaint/Exam Onset/Duration: 1 week Symptoms Are: Worse Timing: Constant Initial Severity: Moderate Current Severity: Severe Location: Rt Arm-prox deltoid Character: Reports Redness, Swelling, Raised and Painful Aggravating: Reports Unknown Alleviating: Reports None Associated Signs and Symptoms: Reports Drainage and Tenderness; Denies Fever, Chills, Itching, Bruising, Red streaks and Joint swelling Related History: Reports Similar episode Recent Exposure to Others w/Similar Symptoms: No Skin Findings: Present Erythema and Fluctuant mass Joint Tenderness Present: No Differential Diagnoses: Abscess and Cellulitis Review of Systems Review Of Systems Constitutional: Reports No symptoms Eyes: Reports No symptoms Ears, Nose, Mouth, Throat: Reports No symptoms Respiratory: Reports No symptoms Cardiac: Reports No symptoms GI: Reports No symptoms : Reports No symptoms Musculoskeletal: Reports No symptoms Skin: Reports Lesions Neurological: Reports No symptoms Endocrine: Reports No symptoms Hematologic/Lymphatic: Reports No symptoms All Other Systems: Reviewed and Negative [facility] Social History Smoking and tobacco status: Current every day smoker Tobacco type: cigarettes Smoking packs per day: 1 Smoking cigarettes per day: 20.0 Substance use type: amphetamines, opiates and methamphetamine History of recent travel: No Female Reproductive History Menstrual Hx Hysterectomy: No Hx Tubal Ligation: No Physical Exam Physical Exam Appearance: Reports Well-appearing Ill-appearing: Mild Pain Distress: Moderate Eyes: Reports JAILENE, EOMI and Conjunctiva clear ENT: Reports Ears normal, Nose normal and Oropharynx normal Neck: Supple Respiratory: Reports Airway patent, Breath sounds clear, Breath sounds equal and Respirations nonlabored Cardiovascular: Reports RRR, Pulses normal, No rub and No murmur GI/: Reports Soft, Nontender, No masses, Bowel sounds normal and No Or ganomegaly Musculoskeletal: Reports Normal strength, ROM intact, No edema and No calf tenderness Skin: Reports Warm, Dry and Normal color Neurological: Reports Sensation intact, Motor intact, Reflexes intact, Cranial nerves intact, Alert and Oriented Psychiatric: Reports Affect appropriate and Mood appropriate Procedures Incision and Drainage Site: Rt Arm Instrument Used: 11 Blade I & D Procedure: Yes Betadine Prep, Sterile drapes applied, Sterile dressing applied and Packing placed Lidocaine Used: No Type of Drainage: Present Pus and Blood Irrigated: No Progress: Proximal area of a circular crusting lesion (3 X 3 Cm) Drainaged notes as superior site/Incision made and copious amouts of prurlent material drained Betadine prep and tx post procedure Physician Notification Case Discussed Physician Notified: Franky Bang hospitalist contacted for admission to hospital /will review lab Time of Notification: 20:40 Critical Care Note Critical Care Note Total Time (mins): 30 Course Course Hematology/Chemistry: 09/24/19 07:35 09/24/19 07:35 Orders, Labs, Meds: Lab Review 09/22/19 09/22/19 09/22/19 19:20 19:20 20:53 WBC 7.15 RBC 3.81 L Hgb 11.0 L Hct 34.9 L MCV 91.6 MCH 28.9 MCHC 31.5 L RDW Coeff of Michelle 13.0 Plt Count 286 Immature Gran % (Auto) 0.1 Neut % (Auto) 61.0 Lymph % (Auto) 26.6 [place] % (Auto) 8.0 Eos % (Auto) 3.5 Baso % (Auto) 0.8 Immature Gran # (Auto) 0.0 Neut # (Auto) 4.4 Lymph # (Auto) 1.9 [place] # (Auto) 0.6 Eos # (Auto) 0.3 Baso # (Auto) 0.1 Sodium Potassium Chloride Carbon Dioxide Anion Gap BUN Creatinine Estimated GFR (MDRD) BUN/Creatinine Ratio Glucose Calcium Total Bilirubin AST ALT Alkaline Phosphatase Total Protein Albumin Globulin Albumin/Globulin Ratio Urine Color Yellow Urine Clarity Clear Urine pH 7.0 Ur Specific [place] 1.025 Urine Protein Negative Urine Glucose (UA) Negative Urine Ketones Negative Urine Blood Negative Urine Nitrite Negative Urine Bilirubin Negative Urine Urobilinogen 0.2 Ur Leukocyte Esterase Negative Urine Opiates Screen Positive H Ur Oxycodone Screen Negative Urine Methadone Screen Negative Ur Propoxyphene Screen Negative Ur Barbiturates Screen Negative U Tricyclic Antidepress Negative Ur Phencyclidine Scrn Negative Ur Amphetamine Screen Positive H U Methamphetamines Scrn Positive H U Benzodiazepines Scrn Positive H Urine Cocaine Screen Negative U Cannabinoids Screen Negative 09/22/19 20:53 WBC RBC Hgb Hct MCV MCH MCHC RDW Coeff of Michelle Plt Count Immature Gran % (Auto) Neut % (Auto) Lymph % (Auto) [place] % (Auto) Eos % (Auto) Baso % (Auto) Immature Gran # (Auto) Neut # (Auto) Lymph # (Auto) [place] # (Auto) Eos # (Auto) Baso # (Auto) Sodium 138.0 Potassium 4.10 Chloride 103.0 Carbon Dioxide 30.0 Anion Gap 9.10 BUN 19.0 H Creatinine 0.40 L Estimated GFR (MDRD) 180.00 BUN/Creatinine Ratio 47.50 Glucose 95.0 Calcium 8.60 Total Bilirubin 0.30 AST 15.0 ALT 10.0 Alkaline Phosphatase 57.0 Total Protein 6.20 L Albumin 3.40 L Globulin 2.80 Albumin/Globulin Ratio 1.21 Urine Color Urine Clarity Urine pH Ur Specific [place] Urine Protein Urine Glucose (UA) Urine Ketones Urine Blood Urine Nitrite Urine Bilirubin Urine Urobilinogen Ur Leukocyte Esterase Urine Opiates Screen Ur Oxycodone Screen Urine Methadone Screen Ur Propoxyphene Screen Ur Barbiturates Screen U Tricyclic Antidepress Ur Phencyclidine Scrn Ur Amphetamine Screen U Methamphetamines Scrn U Benzodiazepines Scrn Urine Cocaine Screen U Cannabinoids Screen Orders Category Date Time Status IV [ED IV/MEDIPORT/POWERPORT] .ONCE EMERGENCY 09/22/19 20:40 Active BLOOD CULTURE (ED ONLY) Stat LAB 09/22/19 20:53 Results CBC W/ AUTO DIFF Stat LAB 09/22/19 20:53 Completed CMP [COMPREHENSIVE METABOLIC PANEL] Stat LAB 09/22/19 20:53 Completed UA [URINALYSIS C & S IF INDICATED] Stat LAB 09/22/19 19:20 Completed URINE DRUG SCREEN (RAPID FOR ED) [DRUG SCREEN, URINE, LAB 09/22/19 19:20 Completed RAPID] Stat WOUND CULTURE Stat LAB 09/22/19 20:23 Completed 0.9 % Sodium Chloride [Saline Flush] MEDS 09/22/19 20:36 Discontinued 1 syr IVF PRN PRN Cefazolin Sodium [Ancef] MEDS 09/22/19 20:04 Discontinued 1 gm IM ONCE STA Hydromorphone HCl [Dilaudid 1 mg/ml Syringe] MEDS 09/22/19 21:41 Discontinued 1 mg IVP ONCE STA Lidocaine HCl/Pf [Lidocaine HCl 1% Sdv] MEDS 09/22/19 20:02 Discontinued 5 ml SUBCUT ONCE STA Morphine Sulfate [Morphine 2 mg/ml Syringe] MEDS 09/22/19 20:41 Discontinued 2 mg IVP ONCE STA Morphine Sulfate [Morphine 4 mg/ml Syringe] MEDS 09/22/19 21:09 Discontinued 4 mg IVP ONCE STA Ondansetron HCl/Pf [Zofran 4 mg/2 ml] MEDS 09/22/19 21:41 Discontinued 4 mg IVP ONCE STA Ringers Lactated Solution [Lactated Ringers] 1,000 ml MEDS 09/22/19 21:10 Discontinued IV 125 mls/hr Medications Discontinued Medications Generic Name Dose Route Start Last Admin Trade Name Freq PRN Reason Stop Dose Admin Cefazolin Sodium 1 gm 09/22/19 20:04 09/22/19 20:31 Ancef IM 09/22/19 20:05 1 gm ONCE STA Administration Clonazepam 0.5 mg 09/23/19 09:00 09/24/19 14:11 Klonopin PO 0.5 mg TID SHAKIR Administration Cyclobenzaprine HCl 10 mg 09/23/19 08:13 09/23/19 09:34 Flexeril PO 10 mg BID PRN Administration Spasms Divalproex Sodium 500 mg 09/23/19 09:00 09/24/19 08:30 Depakote PO 500 mg BID SHAKIR Administration Gabapentin 300 mg 09/23/19 09:00 09/24/19 14:11 Neurontin PO 300 mg TID SHAKIR Administration Hydromorphone HCl 1 mg 09/22/19 21:41 09/22/19 21:45 Dilaudid 1 Mg/Ml Syringe IVP 09/22/19 21:42 1 mg ONCE STA Administration Hydromorphone HCl 1 mg 09/22/19 23:17 09/22/19 23:21 Dilaudid 1 Mg/Ml Syringe IVP 1 mg Q4HR PRN Administration shoulder pain Lactated Ringer's 1,000 mls @ 125 mls/hr 09/22/19 21:10 09/22/19 21:30 Lactated Ringers IV 09/23/19 05:09 125 mls/hr .Q8H STA Administration Cefazolin Sodium 1 gm/ Sodium 50 mls @ 75 mls/hr 09/23/19 05:00 09/23/19 04:51 Chloride IV 09/23/19 05:39 75 mls/hr Q8HR SHAKIR Administration Cefazolin Sodium/Dextrose 1 gm in 50 mls @ 75 mls/hr 09/23/19 13:00 09/24/19 13:09 Ancef 1 Gm/50 Ml D5w IV 09/26/19 12:59 75 mls/hr Q8HR SHAKIR Administration Ketorolac Tromethamine 30 mg 09/23/19 09:10 09/23/19 09:31 Toradol IVP 09/23/19 09:11 30 mg ONCE STA Administration Lidocaine HCl 5 ml 09/22/19 20:02 09/22/19 23:04 Lidocaine Hcl 1% Sdv SUBCUT 09/22/19 20:03 Not Given ONCE STA Morphine Sulfate 2 mg 09/22/19 20:41 09/22/19 20:51 Morphine 2 Mg/Ml Syringe IVP 09/22/19 20:42 2 mg ONCE STA Administration Morphine Sulfate 4 mg 09/22/19 21:09 09/22/19 21:13 Morphine 4 Mg/Ml Syringe IVP 09/22/19 21:10 4 mg ONCE STA Administration Mupirocin 1 applic 09/23/19 10:00 09/24/19 14:11 Bactroban TP 09/26/19 09:59 1 applic TID SHAKIR Administration Ondansetron HCl 4 mg 09/22/19 21:41 09/22/19 21:45 Zofran 4 Mg/2 Ml IVP 09/22/19 21:42 4 mg ONCE STA Administration Sodium Chloride 1 syr 09/22/19 20:36 09/24/19 05:06 Saline Flush IVF 1 syr PRN PRN Administration To flush IV Vital Signs: Temp Pulse Resp BP Pulse Ox 09/22/19 15:38 98.7 F 90 20 133/77 98 Discharge Plan Discharge Patient Disposition: PLACED OBSERVATION Discharge Problem: Abscess of arm, right, Abscess of right shoulder, Abscess Discharge Problem: (Ruled Out): Normocytic anemia Instructions: Methamphetamine Abuse (GEN), Abscess (GEN) Additional Instructions: OUTPATIENT DRESSING CHANGE IS SCHEDULED FOR - AND THEN SATURDAY, SATURDAY AND SATURDAY OF NEXT WEEK AT 11 AM. TRANSPORTATION ARRANGED THRU [facility] WITH PICKUP AT HER HOME AT 10:30. PATIENT/NURSE TO CALL [employer] ([phone]) WHEN READY FOR DEPARTURE TO HOME. AN APPOINTMENT IS SCHEDULED WITH DR. CHAITANYA TOMAS ON September AT 9:15 AM. YOU WILL NEED TO ARRANGE TRANSPORTATION FOR THIS APPOINTMENT. ED Provider: REGINO GRAYSON Condition: Stable Interventions: ED Care Summary Last Done: 09/22/19 23:30 Discharge Last Done: 09/22/19 23:30 Discharge Date/Time: 09/22/19 23:30
[2019-09-22] MEDS ORDERED: LIDOCAINE HCL 1% SDV SUBCUT STA (20:02)
[2019-09-22] MEDS ORDERED: ANCEF IM STA (20:04)
[2019-09-22] MEDS ORDERED: MORPHINE 2 MG/ML SYRINGE IVP STA (20:41)
[2019-09-22 20:59] LABS: HEMATOCRIT 34.9 % (37.0-47.0)
[2019-09-22] MEDS ORDERED: MORPHINE 4 MG/ML SYRINGE IVP STA (21:09)
[2019-09-22] MEDS ORDERED: LACTATED RINGERS 1,000 ML IV STA (21:10)
[2019-09-22] MEDS ORDERED: ZOFRAN 4 MG/2 ML IVP STA (21:41)
[2019-09-22] MEDS ORDERED: DILAUDID 1 MG/ML SYRINGE IVP STA (21:41)
[2019-09-22] MEDS ORDERED: DILAUDID 1 MG/ML SYRINGE IVP PRN (23:17)
[2019-09-22] MEDS ORDERED: DILAUDID 1 MG/ML SYRINGE ONE (23:20)
[2019-09-23 00:37] VITALS: BMI 27.3
[2019-09-23] MEDS ORDERED: ANCEF ONE (04:45)
[2019-09-23] MEDS ORDERED: ANCEF 1 GM in SODIUM CHLORIDE 50 ML IV SCH (05:00)
--- NOTE | 2019-09-23 07:28 | PCM ---
Chief Complaint Chief Complaint: Abscess Right Deltoid History of Present Illness History of Present Illness: Pt states the abscess appeared about 5 days ago. She does not recall the cause. Denies any picking at the site or drainage. She had a little discomfort with movement of the right arm and did not say it was intolerable. Pt states that she did not take anything for it or otherwise do anything for the abscess. Denies fever, chills, light headedness. Review of Systems Constitutional: Denies fever, chills and sweats Respiratory: Denies cough, shortness of air and pain with breathing Cardiovascular: Denies chest pain Gastrointestinal: Denies abdominal pain, nausea and vomiting Neurological: Denies headache and dizziness Musculoskeletal: Reports pain (at the abscess site. ) Allergies Allergies Allergy/AdvReac Type Severity Reaction Status Date / Time TAPE ADHESIVE AdvReac RASH/BLISTE Uncoded 05/24/19 14:53 R [facility] Social History Smoking and tobacco status: Current every day smoker Tobacco type: cigarettes Smoking packs per day: 1 Smoking cigarettes per day: 20.0 Substance use type: amphetamines, opiates and methamphetamine History of recent travel: No Medications Medications: Medications Generic Name Dose Route Start Last Admin Trade Name Freq PRN Reason Stop Dose Admin Sodium Chloride 1 syr 09/22/19 20:36 Saline Flush IVF PRN PRN To flush IV Body Composition Height: 5 ft 7 in Weight: 174 lb 6.17 oz Body Mass Index (BMI): 27.3 Vital Signs Temperature: 98.2 F Pulse Rate: 86 Respiratory Rate: 16 Blood Pressure: 109/70 O2 Sat by Pulse Oximetry: 98 Physical Examination Appearance: Reports Well-appearing (Other than the look of Meth abuse. ) Pain Distress: Mild Neck: Supple (No lymphadenopathy) Respiratory: Reports Airway patent, Breath sounds clear and Breath sounds equal Cardiovascular: Reports RRR, Pulses normal, No rub and No murmur Musculoskeletal: Reports Normal strength Skin: Reports Warm (Abscess site has crusted top with drainage post I&D. Approx. 10 inches of packing was removed and replaced after flushing the abscess. Iodoform gauze 1/4 inch was used. Bactroban was ordered as topical.) and Dry Neurological: Reports Sensation intact, Motor intact, Alert and Oriented Lab/Tests/Diagnostic Imaging Lab/Tests/Diagnostic Imaging: Lab Review 09/22/19 09/22/19 09/22/19 19:20 19:20 20:53 WBC 7.15 RBC 3.81 L Hgb 11.0 L Hct 34.9 L MCV 91.6 MCH 28.9 MCHC 31.5 L RDW Coeff of Michelle 13.0 Plt Count 286 Immature Gran % (Auto) 0.1 Neut % (Auto) 61.0 Lymph % (Auto) 26.6 [place] % (Auto) 8.0 Eos % (Auto) 3.5 Baso % (Auto) 0.8 Immature Gran # (Auto) 0.0 Neut # (Auto) 4.4 Lymph # (Auto) 1.9 [place] # (Auto) 0.6 Eos # (Auto) 0.3 Baso # (Auto) 0.1 Sodium Potassium Chloride Carbon Dioxide Anion Gap BUN Creatinine Estimated GFR (MDRD) BUN/Creatinine Ratio Glucose Calcium Total Bilirubin AST ALT Alkaline Phosphatase Total Protein Albumin Globulin Albumin/Globulin Ratio Urine Color Yellow Urine Clarity Clear Urine pH 7.0 Ur Specific [place] 1.025 Urine Protein Negative Urine Glucose (UA) Negative Urine Ketones Negative Urine Blood Negative Urine Nitrite Negative Urine Bilirubin Negative Urine Urobilinogen 0.2 Ur Leukocyte Esterase Negative Urine Opiates Screen Positive H Ur Oxycodone Screen Negative Urine Methadone Screen Negative Ur Propoxyphene Screen Negative Ur Barbiturates Screen Negative U Tricyclic Antidepress Negative Ur Phencyclidine Scrn Negative Ur Amphetamine Screen Positive H U Methamphetamines Scrn Positive H U Benzodiazepines Scrn Positive H Urine Cocaine Screen Negative U Cannabinoids Screen Negative 09/22/19 20:53 WBC RBC Hgb Hct MCV MCH MCHC RDW Coeff of Michelle Plt Count Immature Gran % (Auto) Neut % (Auto) Lymph % (Auto) [place] % (Auto) Eos % (Auto) Baso % (Auto) Immature Gran # (Auto) Neut # (Auto) Lymph # (Auto) [place] # (Auto) Eos # (Auto) Baso # (Auto) Sodium 138.0 Potassium 4.10 Chloride 103.0 Carbon Dioxide 30.0 Anion Gap 9.10 BUN 19.0 H Creatinine 0.40 L Estimated GFR (MDRD) 180.00 BUN/Creatinine Ratio 47.50 Glucose 95.0 Calcium 8.60 Total Bilirubin 0.30 AST 15.0 ALT 10.0 Alkaline Phosphatase 57.0 Total Protein 6.20 L Albumin 3.40 L Globulin 2.80 Albumin/Globulin Ratio 1.21 Urine Color Urine Clarity Urine pH Ur Specific [place] Urine Protein Urine Glucose (UA) Urine Ketones Urine Blood Urine Nitrite Urine Bilirubin Urine Urobilinogen Ur Leukocyte Esterase Urine Opiates Screen Ur Oxycodone Screen Urine Methadone Screen Ur Propoxyphene Screen Ur Barbiturates Screen U Tricyclic Antidepress Ur Phencyclidine Scrn Ur Amphetamine Screen U Methamphetamines Scrn U Benzodiazepines Scrn Urine Cocaine Screen U Cannabinoids Screen Orders Category Date Time Status ADMIT OBSERVATION [PLACE PATIENT OBSERVATION] .TO ADMISSION 09/22/19 23:14 Active MEDSURG (NON-MONITORED BED) REGULAR DIET DIETARY 09/23/19 Breakfast Ordered IV [ED IV/MEDIPORT/POWERPORT] .ONCE EMERGENCY 09/22/19 20:40 Active BLOOD CULTURE (ED ONLY) Stat LAB 09/22/19 20:53 Received CBC W/ AUTO DIFF Stat LAB 09/22/19 20:53 Completed CMP [COMPREHENSIVE METABOLIC PANEL] Stat LAB 09/22/19 20:53 Completed UA [URINALYSIS C & S IF INDICATED] Stat LAB 09/22/19 19:20 Completed URINE DRUG SCREEN (RAPID FOR ED) [DRUG SCREEN, URINE, LAB 09/22/19 19:20 Completed RAPID] Stat WOUND CULTURE Stat LAB 09/22/19 20:23 Received 0.9 % Sodium Chloride [Saline Flush] MEDS 09/22/19 20:36 Active 1 syr IVF PRN PRN Cefazolin Sodium [Ancef] MEDS 09/23/19 04:45 Discontinued 1 gm .ROUTE .STK-MED ONE Cefazolin Sodium [Ancef] MEDS 09/22/19 20:04 Discontinued 1 gm IM ONCE STA Cefazolin Sodium [Ancef] 1 gm MEDS 09/23/19 05:00 Discontinued 0.9 % Sodium Chloride [Sodium Chloride] 50 ml IV Q8HR Hydromorphone HCl [Dilaudid 1 mg/ml Syringe] MEDS 09/22/19 23:20 Discontinued 1 mg .ROUTE .STK-MED ONE Hydromorphone HCl [Dilaudid 1 mg/ml Syringe] MEDS 09/22/19 21:41 Discontinued 1 mg IVP ONCE STA Hydromorphone HCl [Dilaudid 1 mg/ml Syringe] MEDS 09/22/19 23:17 Discontinued 1 mg IVP Q4HR PRN Lidocaine HCl/Pf [Lidocaine HCl 1% Sdv] MEDS 09/22/19 20:02 Discontinued 5 ml SUBCUT ONCE STA Morphine Sulfate [Morphine 2 mg/ml Syringe] MEDS 09/22/19 20:41 Discontinued 2 mg IVP ONCE STA Morphine Sulfate [Morphine 4 mg/ml Syringe] MEDS 09/22/19 21:09 Discontinued 4 mg IVP ONCE STA Ondansetron HCl/Pf [Zofran 4 mg/2 ml] MEDS 09/22/19 21:41 Discontinued 4 mg IVP ONCE STA Ringers Lactated Solution [Lactated Ringers] 1,000 ml MEDS 09/22/19 21:10 Discontinued IV 125 mls/hr RESUSCITATION STATUS Routine OTHERS 09/23/19 00:37 Ordered Medications Generic Name Dose Route Start Last Admin Trade Name Freq PRN Reason Stop Dose Admin Sodium Chloride 1 syr 09/22/19 20:36 Saline Flush IVF PRN PRN To flush IV Discontinued Medications Generic Name Dose Route Start Last Admin Trade Name Freq PRN Reason Stop Dose Admin Cefazolin Sodium 1 gm 09/22/19 20:04 09/22/19 20:31 Ancef IM 09/22/19 20:05 1 gm ONCE STA Administration Hydromorphone HCl 1 mg 09/22/19 21:41 09/22/19 21:45 Dilaudid 1 Mg/Ml Syringe IVP 09/22/19 21:42 1 mg ONCE STA Administration Hydromorphone HCl 1 mg 09/22/19 23:17 09/22/19 23:21 Dilaudid 1 Mg/Ml Syringe IVP 1 mg Q4HR PRN Administration shoulder pain Lactated Ringer's 1,000 mls @ 125 mls/hr 09/22/19 21:10 09/22/19 21:30 Lactated Ringers IV 09/23/19 05:09 125 mls/hr .Q8H STA Administration Cefazolin Sodium 1 gm/ Sodium 50 mls @ 75 mls/hr 09/23/19 05:00 09/23/19 04:51 Chloride IV 09/23/19 05:39 75 mls/hr Q8HR SHAKIR Administration Lidocaine HCl 5 ml 09/22/19 20:02 09/22/19 23:04 Lidocaine Hcl 1% Sdv SUBCUT 09/22/19 20:03 Not Given ONCE STA Morphine Sulfate 2 mg 09/22/19 20:41 09/22/19 20:51 Morphine 2 Mg/Ml Syringe IVP 09/22/19 20:42 2 mg ONCE STA Administration Morphine Sulfate 4 mg 09/22/19 21:09 09/22/19 21:13 Morphine 4 Mg/Ml Syringe IVP 09/22/19 21:10 4 mg ONCE STA Administration Ondansetron HCl 4 mg 09/22/19 21:41 09/22/19 21:45 Zofran 4 Mg/2 Ml IVP 09/22/19 21:42 4 mg ONCE STA Administration Assessment (1) Abscess of arm, right: Status: Acute Code(s): L02.413 - Cutaneous abscess of right upper limb SNOMED Code(s): 529771016 (2) Normocytic anemia: Status: Acute Code(s): D64.9 - Anemia, unspecified SNOMED Code(s): 959633779 (3) Methamphetamine abuse: Status: Acute Code(s): F15.10 - Other stimulant abuse, uncomplicated SNOMED Code(s): 739409492 Plan Plan: 1) Abscess of Arm, Right: ER performed the I&D with Iodoform packing and Ancef was started last night. Today dressing changed, site flushed, new Iodoform packing, Bactroban topical placed, site was about 1.5 cm deep and 2 cm diameter. No tunneling was found. Pt tolerated this well. Initial Cx came back as Gram Positive Cocci. Previously Pt had Abscess that was Staph Areus that was resistant to Bactrim. I will keep her overnight to ensure she gets more than just 2 or 3 doses of the Ancef 1 gram. 2) Normocytic Anemia, Chronic: Levels are just slightly low and stable compared to previous hematology reports dating back to 2019. 3) Methamphetamine Abuse: I stopped her Adderall medication due to the illicit drug abuse. I recommend not restarting this medication d/t the Pt's Hx of Methamphetamine abuse and current UDS being positive for Methamphetamine. DC Planning: Return to Hospital on an Outpatient basis for new packing every other day so that this can be done with sterile technique while wound is healing and for wound check. Will give script for Clindamycin 300 mg TID for 10 days and continue topical Bactroban to cover for potential MRSA. Will talk with Case Management to see if this Pt can get transportation paid through her insurance.
[2019-09-23] MEDS ORDERED: FLEXERIL PO PRN (08:13)
[2019-09-23] MEDS ORDERED: TORADOL IVP STA (09:10)
[2019-09-23] MEDS: NEURONTIN PO SCH ×3 (09:31→20:33)
[2019-09-23] MEDS: DEPAKOTE PO SCH ×2 (09:31→20:33)
[2019-09-23] MEDS: KLONOPIN PO SCH ×3 (09:32→20:33)
[2019-09-23] MEDS: BACTROBAN TP SCH ×3 (10:53→20:42)
[2019-09-23] MEDS: ANCEF 1 GM/50 ML D5W 1 GM/50 ML BAG IV SCH ×2 (13:26→20:33)
[2019-09-24] MEDS: ANCEF 1 GM/50 ML D5W 1 GM/50 ML BAG IV SCH ×2 (05:06→13:09)
[2019-09-24 07:54] LABS: HEMATOCRIT 34.3 % (37.0-47.0)
[2019-09-24] MEDS: KLONOPIN PO SCH ×2 (08:29→14:11)
[2019-09-24] MEDS: NEURONTIN PO SCH ×2 (08:29→14:11)
[2019-09-24] MEDS: DEPAKOTE PO SCH (08:30)
--- NOTE | 2019-09-24 08:30 | PCM.DC ---
Final Diagnosis: Abscess Right Arm Normocytic Anemia Methamphetamine Abuse (1) Abscess of arm, right: Status: Acute Code(s): L02.413 - Cutaneous abscess of right upper limb SNOMED Code(s): 127636249 (2) Normocytic anemia: Status: Acute Code(s): D64.9 - Anemia, unspecified SNOMED Code(s): 412479726 (3) Methamphetamine abuse: Status: Acute Code(s): F15.10 - Other stimulant abuse, uncomplicated SNOMED Code(s): 127551121 Reason for Hospitalization: IV Ab for abscess believed to be a Brown Recluse bite. Prognosis at Discharge: Good Condition at Discharge: Stable Medications at Discharge: Ambulatory Orders Medication Instructions Recorded gabapentin 300 mg PO TID 12/12/13 dextroamphetamine-amphetamine 30 mg PO BID 03/02/14 [Adderall] ferrous sulfate [iron] 325 mg PO DAILY 03/02/14 cyclobenzaprine 10 mg PO BID PRN 12/02/14 clonazepam [Klonopin] 0.5 mg PO TID 09/29/15 divalproex [Depakote] 500 mg PO BID 10/20/18 Education Provided to Patient and Family: Abscess, Methamphetamine abuse. Follow-ups: PCP in 3-5 days Return to Hospital for outpatient wound care. Discharge Disposition: Home Hospital Course: Pt has received about 7 rounds of IV Ancef. Wound has been changed once. Pt states she is feeling well and states that she will return for wound care management as instructed. Plan: 1) Abscess of Arm, Right: ER performed the I&D with Iodoform packing and Ancef was started last night. Today dressing changed, site flushed, new Iodoform packing, Bactroban topical placed, site was about 1.5 cm deep and 2 cm diameter. No tunneling was found. Pt tolerated this well. Initial Cx came back as Gram Positive Cocci. Previously Pt had Abscess that was Staph Areus that was resistant to Bactrim. I will keep her overnight to ensure she gets more than just 2 or 3 doses of the Ancef 1 gram. 09/24/2019: Site is looking good. As Pt returns for wound care I am looking forward to seeing her wound debrided as well as the standard repacking of the wound. 2) Normocytic Anemia, Chronic: Levels are just slightly low and stable compared to previous hematology reports dating back to 2019. 09/24/2019: Stable 3) Methamphetamine Abuse: I stopped her Adderall medication due to the illicit drug abuse. I recommend not restarting this medication d/t the Pt's Hx of Methamphetamine abuse and current UDS being positive for Methamphetamine. 09/24/2019: No change. Educational material will be sent home with Pt. DC Planning: Return to Hospital on an Outpatient basis for new packing every other day so that this can be done with sterile technique while wound is healing and for wound check. Will give script for Clindamycin 300 mg TID for 10 days and continue topical Bactroban to cover for potential MRSA. Will talk with Case Management to see if this Pt can get transportation paid through her insurance.
[2019-09-24] MEDS: BACTROBAN TP SCH ×2 (08:31→14:11)
[2019-09-24 13:56] VITALS: BP 117/76; TEMP 98.7
== END 2019-09-24 15:00 | disposition home or self-care (01) ==
LOC: MEDSURG B 15:37 → ED 15:37 → MEDSURG B 23:30
PROVIDERS: ADMIT Nurse Practitioner Family; ATTEND Nurse Practitioner Family
DX: B96.89 Other specified bacterial agents as the cause of diseases classified elsewhere; F15.10 Other stimulant abuse, uncomplicated; F17.210 Nicotine dependence, cigarettes, uncomplicated; T63.331A Toxic effect of venom of brown recluse spider, accidental (unintentional), initial encounter; D64.9 Anemia, unspecified; F11.10 Opioid abuse, uncomplicated; L02.413 Cutaneous abscess of right upper limb

== ENCOUNTER 2022-09-10 20:25 | Observation (INO) ==
--- NOTE | 2022-09-10 20:31 | ED.PDOC ---
General ED Provider: Dr. NEEMA DC MD Chief Complaint: Respiratory Complaint Stated Complaint: Patient presents with a 4 day history of fever, headache, rhinorrhea, sore throat, cough productive of green colored sputum and body aches. Time Seen by Provider: 09/10/22 20:31 Primary Care Provider: JAVIER TOMAS Nursing and Triage Documentation Reviewed and Agree: Yes Does patient meet sepsis criteria?: No System Inflammatory Response Syndrome: Not Applicable Sepsis Protocol: For patient's 13 years and over: Temp is 96.8 and below OR 101 and greater Pulse >90 BPM Resp >20/minute Acutely Altered Mental Status Are patient's symptoms suggestive of a new infection, such as: -Pneumonia -Skin, Soft Tissue -Endocarditis -UTI -Bone, Joint Infection -Implantable Device -Acute Abdominal Infection -Wound Infection -Meningitis -Blood Stream Catheter Infection -Unknown Review of Systems Review Of Systems Constitutional: Reports Fever, Malaise and Loss of appetite Eyes: Reports No symptoms Ears, Nose, Mouth, Throat: Reports Nose discharge and Throat pain Respiratory: Reports Cough Cardiac: Reports No symptoms GI: Reports No symptoms : Reports No symptoms Musculoskeletal: Reports Muscle pain Skin: Reports No symptoms Neurological: Reports No symptoms Endocrine: Reports No symptoms Hematologic/Lymphatic: Reports No symptoms All Other Systems: Reviewed and Negative [facility] Medical History Depressed Social History Smoking and tobacco status: Current every day smoker Tobacco type: cigarettes Smoking packs per day: 1 Smoking cigarettes per day: 20.0 Substance use type: former substance user, amphetamines, opiates and methamphetamine History of recent travel: No Female Reproductive History Menstrual Hx Hysterectomy: No Hx Tubal Ligation: No Physical Exam Physical Exam Appearance: Reports Ill-appearing, No pain distress and Well-nourished Ill-appearing: Moderate Pain Distress: None Eyes: Reports Conjunctiva clear ENT: Reports Oropharynx normal, Rhinorrhea and Erythema (posterior oropharynx) Neck: Supple Respiratory: Reports Airway patent, Breath sounds clear and Breath sounds equal Cardiovascular: Reports RRR, No rub and No murmur GI/: Reports Not Examined Musculoskeletal: Reports Normal strength, ROM intact and No edema Skin: Reports Warm, Dry and Other (no rash) Neurological: Reports Alert and Oriented Psychiatric: Reports Affect appropriate and Mood appropriate Interpretation Radiology Interpretation Radiology Interpretation By: Radiologist Exam Interpreted: Portable CXR (left sided infiltrate and left pleural effusion, right sided atelectasis) Critical Care Note Critical Care Note Total Critical Care Time (mins): 0 Course Course Hematology/Chemistry: 09/10/22 21:11 09/10/22 21:11 Discharge Plan Discharge Patient Disposition: PLACED OBSERVATION Discharge Problem: Pneumonia, Pleural effusion associated with pulmonary infection Instructions: Pleural Effusion (DC), Pneumonia (ED) Prescriptions: No Action ferrous sulfate [iron] 325 MG tablet 325 mg PO BID divalproex [Depakote] 500 MG tablet,delayed release (DR/EC) 500 mg PO BID buprenorphine-naloxone [Suboxone] 2-0.5 mg Film 3 film DAILY Did you review [place] [employer] for ALL controlled substances?: Not Applicable Discussed opioids are addictive and Narcan is available by prescription or from pharmacy.: No ED Provider: NEEMA DC Condition: Fair Physician Progress Note: []
[2022-09-10] MEDS ORDERED: MOTRIN PO STA (20:46)
--- NOTE | 2022-09-10 21:09 | DI ---
EXAM: FRONTAL VIEW OF THE CHEST. HISTORY: Cough COMPARISON: 09/04/2021 FINDINGS: Cardiac silhouette is upper normal Infiltrative process left lung base. Atelectasis right lung base. Left-sided pleural effusion. No obvious pneumothorax. No acute osseous abnormality. IMPRESSION: 1. Left-sided pleural effusion with infiltrate on the left and atelectasis on the right.
[2022-09-10] MEDS ORDERED: SODIUM CHLORIDE 1,000 ML IV STA (21:11)
[2022-09-10] MEDS ORDERED: ROCEPHIN 2 GM VIAL 2 GM in SODIUM CHLORIDE 100ML 100 ML IV ONE (21:11)
[2022-09-10] MEDS ORDERED: ROCEPHIN 2 GM VIAL ONE (21:19)
[2022-09-10 21:30] LABS: MOLECULAR FLU A NEGATIVE BY NAAT (NEGATIVE); MOLECULAR FLU B NEGATIVE BY NAAT (NEGATIVE)
[2022-09-10 21:31] LABS: BASOPHILS # (AUTO) 0.1 K/uL (0-0.2); BASOPHILS % (AUTO) 0.5 % (0.0-3.0); EOSINOPHILS # (AUTO) 0.5 K/ul (0.0-0.7); EOSINOPHILS % (AUTO) 4.3 % (0.0-7.0); HEMOGLOBIN 10.3 g/dl (12.0-16.0); IMMATURE GRANULOCYTE % (AUTO) 0.4 % (0.0-5.0); LYMPHOCYTES # (AUTO) 1.6 K/uL (0.60-3.4); LYMPHOCYTES % (AUTO) 14.2 (10.0-50.0); MEAN CORPUSCULAR HGB CONC 32.2 (31.8-35.4); MONOCYTES % (AUTO) 8.8 (0-10); NEUTROPHILS # (AUTO) 7.9 K/ul (2.0-6.9); NEUTROPHILS % (AUTO) 71.8 % (42.2-75.2); PLATELET COUNT 428 10^3/uL (140-440); RDW COEFFICIENT OF VARIATION 13.8 % (11.6-14.8); RED BLOOD COUNT 3.68 10^6/ul (4.20-5.40); WHITE BLOOD COUNT 10.95 K/ul (4.6-10.2)
[2022-09-10] MEDS ORDERED: DUONEB NEB STA (21:40)
[2022-09-10 21:46] LABS: SARS COV-2 RNA RAPID NAAT NEGATIVE (NEGATIVE)
[2022-09-10 21:53] LABS: ALANINE AMINOTRANSFERASE 15.1 U/L (0-35); ALBUMIN 3.47 g/dL (3.5-5.0); ALKALINE PHOSPHATASE 80.5 U/L (38-126); ASPARTATE AMINO TRANSFERASE 29.2 U/L (14-36); BILIRUBIN,TOTAL 0.25 mg/dL (0.2-1.3); CALCIUM 8.89 mg/dL (8.4-10.2); CARBON DIOXIDE 32.8 mmol/L (22-30.0); CHLORIDE 97.8 mmol/L (98-107); CREATININE 0.34 mg/dL (0.60-1.30); GLUCOSE 103.1 mg/dL (74-106); POTASSIUM 3.23 mmol/L (3.5-5.1); SODIUM 136.3 mmol/L (134.5-145); TOTAL PROTEIN 6.41 g/dL (6.3-8.2)
[2022-09-10] MEDS ORDERED: K-DUR PO STA (22:11)
[2022-09-10] MEDS ORDERED: ZITHROMAX 500 MG in SODIUM CHLORIDE 250 ML IV STA (22:32)
--- NOTE | 2022-09-10 22:41 | PCM ---
Chief Complaint Chief Complaint: cough, fever History of Present Illness History of Present Illness: Patient admitted with four day history of fever, cough, body aches, malaise, weakness, poor appetite. Chest xray demonstrated left lower lobe pneumonia and left pleural effusion. Review of Systems Constitutional: Reports Fever, Weakness and Loss of appetite Eyes: Reports No symptoms Ears: Reports No symptoms Nose: Reports No symptoms Throat: Reports Pain Mouth: Reports No symptoms Respiratory: Reports Cough Cardiovascular: Reports No symptoms Gastrointestinal: Reports No symptoms Genitourinary: Reports No symptoms Neurological: Reports No symptoms Musculoskeletal: Reports Pain Skin: Reports No symptoms Immunology: Reports No symptoms Hematology: Reports No symptoms Endocrine: Reports No symptoms Psychiatric: Reports Other (bipolar disorder) Habits: Reports Tobacco use and Substance use Allergies Allergies Allergy/AdvReac Type Severity Reaction Status Date / Time TAPE ADHESIVE AdvReac RASH/BLISTE Uncoded 09/10/22 20:39 R [facility] Medical History Depressed Social History Smoking and tobacco status: Current every day smoker Tobacco type: cigarettes Smoking packs per day: 1 Smoking cigarettes per day: 20.0 Substance use type: former substance user, amphetamines, opiates and methamphetamine History of recent travel: No Medications Medications: Medications Generic Name Dose Route Start Last Admin Trade Name Freq PRN Reason Stop Dose Admin Divalproex Sodium 500 mg 09/11/22 09:00 Divalproex Sodium 250 Mg Tablet.Dr PO BID SHAKIR Sodium Chloride 1 syr 09/10/22 21:11 0.9% Sodium Chloride 10 Ml Disp.Syrin IVF PRN PRN To flush IV Body Composition Height: 5 ft 7.5 in Weight: 76.929 kg Body Mass Index (BMI): 26.2 Vital Signs Temperature: 97.9 F Pulse Rate: 86 Respiratory Rate: 18 Blood Pressure: 113/79 O2 Sat by Pulse Oximetry: 95 Physical Examination Appearance: Reports Ill-appearing, No pain distress, Well-nourished and Other (No respiratory distress.) Ill-appearing: Moderate Pain Distress: None Eyes: Reports Conjunctiva clear ENT: Reports Nose normal and Oropharynx normal Neck: Supple Respiratory: Reports Airway patent, Breath sounds diminished (left base), Respirations nonlabored and Rhonchi Cardiovascular: Reports RRR, No rub and No murmur GI/: Reports Soft, Nontender, No masses and Bowel sounds normal Musculoskeletal: Reports Normal strength, ROM intact and No edema Skin: Reports Warm, Dry and Normal color Neurological: Reports Alert and Oriented Psychiatric: Reports Affect appropriate and Mood appropriate Lab/Tests/Diagnostic Imaging Lab/Tests/Diagnostic Imaging: Lab Review 09/10/22 09/10/22 09/10/22 20:55 20:55 21:11 WBC 10.95 H RBC 3.68 L Hgb 10.3 L Hct 32.0 L MCV 87.0 MCH 28.0 MCHC 32.2 RDW Coeff of Michelle 13.8 Plt Count 428 Immature Gran % (Auto) 0.4 Neut % (Auto) 71.8 Lymph % (Auto) 14.2 Sac % (Auto) 8.8 Eos % (Auto) 4.3 Baso % (Auto) 0.5 Neut # (Auto) 7.9 H Lymph # (Auto) 1.6 Sac # (Auto) 1.0 Eos # (Auto) 0.5 Baso # (Auto) 0.1 Immature Gran # (Auto) 0.0 Sodium Potassium Chloride Carbon Dioxide Anion Gap BUN Creatinine Estimated GFR (MDRD) BUN/Creatinine Ratio Glucose Lactic Acid Calcium Total Bilirubin AST ALT Alkaline Phosphatase Total Protein Albumin Globulin Albumin/Globulin Ratio Influ A Molecular Assay Negative by naat Influ B Molecular Assay Negative by naat SARS CoV-2 RNA Rapid GLENN Negative 09/10/22 09/10/22 21:11 21:11 WBC RBC Hgb Hct MCV MCH MCHC RDW Coeff of Michelle Plt Count Immature Gran % (Auto) Neut % (Auto) Lymph % (Auto) Sac % (Auto) Eos % (Auto) Baso % (Auto) Neut # (Auto) Lymph # (Auto) Sac # (Auto) Eos # (Auto) Baso # (Auto) Immature Gran # (Auto) Sodium 136.3 Potassium 3.23 L Chloride 97.8 L Carbon Dioxide 32.8 H Anion Gap 8.93 BUN 6.0 L Creatinine 0.34 L Estimated GFR (MDRD) 213.00 BUN/Creatinine Ratio 17.64 Glucose 103.1 Lactic Acid 1.08 Calcium 8.89 Total Bilirubin 0.25 AST 29.2 ALT 15.1 Alkaline Phosphatase 80.5 Total Protein 6.41 Albumin 3.47 L Globulin 2.94 Albumin/Globulin Ratio 1.18 Influ A Molecular Assay Influ B Molecular Assay SARS CoV-2 RNA Rapid GLENN Orders Category Date Time Status PLACE PATIENT OBSERVATION .TO MEDSURG (NON-MONITORED ADMISSION 09/10/22 22:32 Ordered BED) NEBULIZER TREATMENT Routine CARDIO 09/10/22 22:35 Ordered NEBULIZER TREATMENT Stat CARDIO 09/10/22 21:40 Ordered OXYGEN Routine CARDIO 09/10/22 22:33 Ordered ACTIVITY .Up ad Saranya CARE 09/10/22 22:32 Ordered INTAKE & OUTPUT Q8HR CARE 09/10/22 22:32 Ordered IP: INSERT SALINE LOCK ONCE CARE 09/10/22 22:32 Ordered VITAL SIGNS Q8HR CARE 09/10/22 22:32 Ordered REGULAR DIET DIETARY 09/10/22 Breakfast Ordered Saline Lock [ED IV/MEDIPORT/POWERPORT] .ONCE EMERGENCY 09/10/22 21:11 Active CBC W/ AUTO DIFF DAILY@0600 LAB 09/11/22 06:00 Ordered CBC W/ AUTO DIFF DAILY@0600 LAB 09/12/22 06:00 Ordered CBC W/ AUTO DIFF Stat LAB 09/10/22 21:11 Completed CMP [COMPREHENSIVE METABOLIC PANEL] Stat LAB 09/10/22 21:11 Completed COMPREHENSIVE METABOLIC PANEL DAILY@0600 LAB 09/11/22 06:00 Ordered COMPREHENSIVE METABOLIC PANEL DAILY@0600 LAB 09/12/22 06:00 Ordered COVID [SARS COV-2 RNA RAPID GLENN] Stat LAB 09/10/22 20:55 Completed FLU A & B MOLECULAR [FLU A/B MOLECULAR] Stat LAB 09/10/22 20:55 Completed LACTIC ACID Stat LAB 09/10/22 21:11 Completed 0.9 % Sodium Chloride [Saline Flush] MEDS 09/10/22 21:11 Ordered 1 syr IVF PRN PRN Azithromycin Inj [Zithromax] 500 mg MEDS 09/10/22 22:32 Ordered 0.9 % Sodium Chloride [Sodium Chloride] 250 ml IV ONCE Ceftriaxone Sodium [Rocephin 2 gm Vial] MEDS 09/10/22 21:19 Discontinued 2 gm .ROUTE .STK-MED ONE Ceftriaxone Sodium [Rocephin 2 gm Vial] 2 gm MEDS 09/10/22 21:11 Discontinued 0.9 % Sodium Chloride [Sodium Chloride 100Ml] 100 ml IV ONCE Divalproex Sodium [Depakote] MEDS 09/11/22 09:00 Ordered 500 mg PO BID Ibuprofen [Motrin] MEDS 09/10/22 20:46 Discontinued 800 mg PO ONCE STA Ipratropium/Albuterol Neb [Duoneb] MEDS 09/10/22 21:40 Discontinued 3 ml NEB ONCE STA Ipratropium/Albuterol Neb [Duoneb] MEDS 09/11/22 00:00 Ordered 3 ml NEB RTQ6H Potassium Chloride [K-Dur] MEDS 09/10/22 22:11 Discontinued 40 meq PO ONCE STA Potassium Chloride in 0.9%NaCl [Sodium Chloride 0.9%- MEDS 09/10/22 23:00 Ordered KCl 20 Meq] 1,000 ml IV 150 mls/hr Sodium Chloride 0.9% [Sodium Chloride] 1,000 ml MEDS 09/10/22 21:11 Discontinued IV BOLUS RESUSCITATION STATUS Routine OTHERS 09/10/22 22:32 Ordered CXR [CHEST, 1V AP ONLY] Stat RADS 09/10/22 20:46 Completed CXR [CHEST, 1V AP ONLY] Timed RADS 09/11/22 07:32 Ordered Medications Generic Name Dose Route Start Last Admin Trade Name Freq PRN Reason Stop Dose Admin Divalproex Sodium 500 mg 09/11/22 09:00 Divalproex Sodium 250 Mg Tablet.Dr PO BID SHAKIR Sodium Chloride 1 syr 09/10/22 21:11 0.9% Sodium Chloride 10 Ml Disp.Syrin IVF PRN PRN To flush IV Discontinued Medications Generic Name Dose Route Start Last Admin Trade Name Freq PRN Reason Stop Dose Admin Albuterol/Ipratropium 3 ml 09/10/22 21:40 09/10/22 22:15 Ipratropium/Albuterol Vial.Neb NEB 09/10/22 21:41 3 ml ONCE STA Administration Sodium Chloride 1,000 mls @ 1,000 mls/hr 09/10/22 21:11 09/10/22 21:37 Sodium Chloride IV 09/10/22 22:10 1,000 mls/hr BOLUS STA Administration Ceftriaxone Sodium 2 gm/ 100 mls @ 100 mls/hr 09/10/22 21:11 09/10/22 21:36 Sodium Chloride IV 09/10/22 22:10 100 mls/hr ONCE ONE Administration Ibuprofen 800 mg 09/10/22 20:46 09/10/22 21:04 Ibuprofen 400 Mg Tablet PO 09/10/22 20:47 800 mg ONCE STA Administration Potassium Chloride 40 meq 09/10/22 22:11 09/10/22 22:18 Potassium Chloride 20 Meq Tab PO 09/10/22 22:12 40 meq ONCE STA Administration Assessment (1) Pneumonia: Status: Acute Code(s): J18.9 - Pneumonia, unspecified organism SNOMED Code(s): 060794454 (2) Pleural effusion associated with pulmonary infection: Status: Acute Code(s): J18.9 - Pneumonia, unspecified organism; J91.8 - Pleural effusion in other conditions classified elsewhere SNOMED Code(s): 87719190 (3) Acute hypokalemia: Status: Acute Code(s): E87.6 - Hypokalemia SNOMED Code(s): 35662911 Plan Plan: Replace potassium. IV fluids. Neb treatments. IV antibiotics.
[2022-09-10 23:53] VITALS: BMI 26.4
[2022-09-11] MEDS: SODIUM CHLORIDE 0.9%-KCL 20 MEQ 1,000 ML IV SCH ×4 (00:01→14:44)
[2022-09-11] MEDS: TESSALON PERLES PO PRN (00:01)
[2022-09-11 10:39] LABS: ALANINE AMINOTRANSFERASE 12.9 U/L (0-35); ALBUMIN 2.96 g/dL (3.5-5.0); ALKALINE PHOSPHATASE 72.5 U/L (38-126); ASPARTATE AMINO TRANSFERASE 15.4 U/L (14-36); BILIRUBIN,TOTAL 0.14 mg/dL (0.2-1.3); BLOOD UREA NITROGEN 5.8 mg/dL (7-17); CALCIUM 8.29 mg/dL (8.4-10.2); CARBON DIOXIDE 30.8 mmol/L (22-30.0); CHLORIDE 103.9 mmol/L (98-107); CREATININE 0.37 mg/dL (0.60-1.30); GLUCOSE 113.9 mg/dL (74-106); POTASSIUM 3.39 mmol/L (3.5-5.1); SODIUM 138.6 mmol/L (134.5-145); TOTAL PROTEIN 5.68 g/dL (6.3-8.2)
[2022-09-11 10:55] LABS: BASOPHILS % (AUTO) 0.2 % (0.0-3.0); EOSINOPHILS # (AUTO) 0.5 K/ul (0.0-0.7); EOSINOPHILS % (AUTO) 4.4 % (0.0-7.0); IMMATURE GRANULOCYTE % (AUTO) 0.3 % (0.0-5.0); LYMPHOCYTES # (AUTO) 1.6 K/uL (0.60-3.4); LYMPHOCYTES % (AUTO) 15.3 (10.0-50.0); MEAN CORPUSCULAR HGB CONC 32.1 (31.8-35.4); MONOCYTES # (AUTO) 1.1 K/uL (0.4-2.0); MONOCYTES % (AUTO) 10.7 (0-10); NEUTROPHILS # (AUTO) 7.3 K/ul (2.0-6.9); NEUTROPHILS % (AUTO) 69.1 % (42.2-75.2); PLATELET COUNT 410 10^3/uL (140-440); RDW COEFFICIENT OF VARIATION 13.8 % (11.6-14.8); RED BLOOD COUNT 3.22 10^6/ul (4.20-5.40); WHITE BLOOD COUNT 10.61 K/ul (4.6-10.2)
[2022-09-11] MEDS: DUONEB NEB SCH ×4 (12:01→23:14)
[2022-09-11] MEDS: BUPRENORPHINE NALOXONE SL SCH (12:13)
[2022-09-11] MEDS: DEPAKOTE PO SCH ×2 (12:13→21:02)
--- NOTE | 2022-09-11 12:46 | PCM.PROG ---
Date Seen by Provider: 09/11/22 Time Seen by Provider: 12:44 Subjective: dx. pneumonia, left pleural effusion Objective: Vitals: T=96.7 F, P=91, R=18, IL=798/63, SPO2=93 HEENT: []conjunctiva clear Neck: []supple Lungs: [] rhonchi CVS: []rrr Abdomen: []nondistended Extremities: []warm and dry Neurological: []alert and oriented Skin: []pink Lab/Tests/Diagnostic Imaging: [] (1) Pneumonia: Status: Acute Code(s): J18.9 - Pneumonia, unspecified organism SNOMED Code(s): 614810234 (2) Pleural effusion associated with pulmonary infection: Status: Acute Code(s): J18.9 - Pneumonia, unspecified organism; J91.8 - Pleural effusion in other conditions classified elsewhere SNOMED Code(s): 95407163 (3) Acute hypokalemia: Status: Acute Code(s): E87.6 - Hypokalemia SNOMED Code(s): 20128168 Plan: continue nebs and rocephin and zithromax
--- NOTE | 2022-09-11 14:06 | DI ---
EXAM: CHEST ONE VIEW, FRONTAL VIEW ONLY. HISTORY: Pneumonia, pleural effusion. COMPARISON: 1 day prior. FINDINGS: Heart enlarged. Stable left pleural effusion with left basilar consolidation. Mild band- like opacities in the right lung base. Upper lungs clear. No pneumothorax. No vascular congestion. No acute osseous abnormality. Two routine comparison IMPRESSION: Stable appearance of the chest.
[2022-09-11] MEDS: ROCEPHIN 1 GM/50 ML D5W 1 GM/50 ML BAG IV SCH (21:03)
[2022-09-11] MEDS: ZITHROMAX 500 MG in SODIUM CHLORIDE 250 ML IV SCH (22:03)
[2022-09-11] MEDS: MOTRIN PO PRN (22:09)
[2022-09-12] MEDS: SODIUM CHLORIDE 0.9%-KCL 20 MEQ 1,000 ML IV SCH ×2 (04:11→16:36)
[2022-09-12] MEDS: DUONEB NEB SCH ×4 (04:55→23:00)
[2022-09-12 05:20] LABS: BASOPHILS % (AUTO) 0.5 % (0.0-3.0); EOSINOPHILS # (AUTO) 0.4 K/ul (0.0-0.7); EOSINOPHILS % (AUTO) 5.2 % (0.0-7.0); HEMOGLOBIN 9.5 g/dl (12.0-16.0); IMMATURE GRANULOCYTE % (AUTO) 0.4 % (0.0-5.0); LYMPHOCYTES # (AUTO) 2.3 K/uL (0.60-3.4); MEAN CORPUSCULAR HEMOGLOBIN 27.9 pg (27.0-31.0); MEAN CORPUSCULAR HGB CONC 31.7 (31.8-35.4); MONOCYTES # (AUTO) 0.6 K/uL (0.4-2.0); MONOCYTES % (AUTO) 8.2 (0-10); NEUTROPHILS # (AUTO) 4.4 K/ul (2.0-6.9); NEUTROPHILS % (AUTO) 56.7 % (42.2-75.2); PLATELET COUNT 426 10^3/uL (140-440); RDW COEFFICIENT OF VARIATION 14.1 % (11.6-14.8); RED BLOOD COUNT 3.41 10^6/ul (4.20-5.40); WHITE BLOOD COUNT 7.83 K/ul (4.6-10.2)
[2022-09-12 05:35] LABS: ALANINE AMINOTRANSFERASE 11.3 U/L (0-35); ALBUMIN 2.89 g/dL (3.5-5.0); ALKALINE PHOSPHATASE 69.1 U/L (38-126); ASPARTATE AMINO TRANSFERASE 13.1 U/L (14-36); BLOOD UREA NITROGEN 4.9 mg/dL (7-17); CALCIUM 8.34 mg/dL (8.4-10.2); CHLORIDE 107.8 mmol/L (98-107); CREATININE 0.42 mg/dL (0.60-1.30); POTASSIUM 4.04 mmol/L (3.5-5.1); SODIUM 140.7 mmol/L (134.5-145); TOTAL PROTEIN 5.61 g/dL (6.3-8.2)
[2022-09-12 05:36] LABS: BILIRUBIN,TOTAL < 0.10 mg/dL (0.2-1.3)
[2022-09-12] MEDS: DEPAKOTE PO SCH ×2 (08:14→20:01)
[2022-09-12] MEDS: BUPRENORPHINE NALOXONE SL SCH (08:16)
--- NOTE | 2022-09-12 08:40 | PCM.PROG ---
Date Seen by Provider: 09/12/22 Time Seen by Provider: 08:15 Subjective: Still feels poorly. Objective: Vitals: T=97.4 F, P=81, R=18, JW=517/66, SPO2=97 Appears ill. No respiratory distress. HEENT: [] Neck: [] Lungs: [] BS decreased left base. CVS: []RRR Abdomen: []Soft, nontender. Extremities: []No edema Neurological: [] Skin: [] Lab/Tests/Diagnostic Imaging: [] (1) Pneumonia: Status: Acute Code(s): J18.9 - Pneumonia, unspecified organism SNOMED Code(s): 436112140 (2) Pleural effusion associated with pulmonary infection: Status: Acute Code(s): J18.9 - Pneumonia, unspecified organism; J91.8 - Pleural effusion in other conditions classified elsewhere SNOMED Code(s): 37804723 Plan: Check CT scan chest. May need thoracentesis.
--- NOTE | 2022-09-12 12:34 | CT ---
EXAM: CT CHEST WITH CONTRAST. HISTORY: Pneumonia, pleural effusion in the. COMPARISON: Radiograph [address] 12/29/2017. TECHNIQUE: Multiple axial images of the chest were obtained following intravenous administration of 75 mL Omnipaque 350, low osmolar. Images were reformatted in the sagittal and coronal planes. FINDINGS: Multiple mediastinal lymph nodes are present largest subcarinal region measuring 1.7 cm sh ort axis axial image 25. Left hilar lymph node measures 1 cm short axis axial image 26. Nonenlarged right hilar lymph nodes present. The heart is at the upper limits of normal in size. No pericardial effusion. Small bilateral pleural effusions. Consolidation within the left lower lobe, lingula, right lower lo be, right middle lobe and the perifissural anterior right upper lobe with some air bronchograms. No pneumothorax. No acute abnormality in the upper abdomen. No acute osseous abnormality. IMPRESSION: 1. Bilateral consolidation and small pleural effusions most likely representing pneumonia. Follow u p within 3 months recommended for reassessment. 2. Mediastinal and hilar lymphadenopathy likely due to #1 above which can also be reassessed on foll ow-up. All CT scans are performed using dose optimization techniques as appropriate to the performed exam an d include at least one of the following: Automated exposure control, adjustment of the mA and/or kV according t o size, and the use of iterative reconstruction technique.
[2022-09-12] MEDS: TESSALON PERLES PO PRN (16:33)
[2022-09-12] MEDS: ROCEPHIN 1 GM/50 ML D5W 1 GM/50 ML BAG IV SCH (20:00)
[2022-09-12] MEDS: MOTRIN PO PRN (20:01)
[2022-09-12] MEDS: ZITHROMAX 500 MG in SODIUM CHLORIDE 250 ML IV SCH (21:08)
[2022-09-13] MEDS: DUONEB NEB SCH ×4 (04:55→19:40)
[2022-09-13] MEDS: TESSALON PERLES PO PRN ×2 (08:50→21:59)
[2022-09-13] MEDS: DEPAKOTE PO SCH ×2 (08:50→20:19)
[2022-09-13] MEDS: MOTRIN PO PRN ×2 (08:50→21:59)
[2022-09-13] MEDS: SODIUM CHLORIDE 0.9%-KCL 20 MEQ 1,000 ML IV SCH ×2 (08:53→22:09)
[2022-09-13] MEDS: BUPRENORPHINE NALOXONE SL SCH (09:49)
--- NOTE | 2022-09-13 12:41 | PCM.PROG ---
Date Seen by Provider: 09/13/22 Time Seen by Provider: 12:40 Subjective: dx. pneumonia Objective: Vitals: T=97.1 F, P=91, R=18, SZ=339/66, AOS8=416 HEENT: []conjunctiva clear Neck: []supple Lungs: [] no respiratory distress CVS: [] Abdomen: []nondistended Extremities: []shu Neurological: []alert Skin: []pink Lab/Tests/Diagnostic Imaging: [] (1) Pneumonia: Status: Acute Code(s): J18.9 - Pneumonia, unspecified organism SNOMED Code(s): 852653424 (2) Pleural effusion associated with pulmonary infection: Status: Acute Code(s): J18.9 - Pneumonia, unspecified organism; J91.8 - Pleural effusion in other conditions classified elsewhere SNOMED Code(s): 39663682 Plan: continue rocephin and neb treatments
[2022-09-13] MEDS: ROCEPHIN 1 GM/50 ML D5W 1 GM/50 ML BAG IV SCH (20:20)
[2022-09-14] MEDS: DUONEB NEB SCH ×2 (04:50→10:56)
[2022-09-14] MEDS: BUPRENORPHINE NALOXONE SL SCH (08:08)
[2022-09-14] MEDS: TESSALON PERLES PO PRN (08:09)
[2022-09-14] MEDS: DEPAKOTE PO SCH (08:09)
[2022-09-14 10:08] VITALS: BP 120/71; TEMP 96.6
--- NOTE | 2022-09-14 10:25 | PCM.PROG ---
Date Seen by Provider: 09/14/22 Time Seen by Provider: 10:00 Subjective: Patient feeling better. Denies dyspnea or chest pain. Objective: Vitals: T=96.6 F, P=81, R=13, LF=760/71, SPO2=97 Patient alert and in NAD. She is breathing without distress. HEENT: [] Neck: []No JVD Lungs: [] Lungs clear. Air exchange much improved. CVS: []RRR. No edema. Abdomen: [] Extremities: [] Neurological: [] Skin: [] Lab/Tests/Diagnostic Imaging: [] (1) Pneumonia: Status: Acute Code(s): J18.9 - Pneumonia, unspecified organism SNOMED Code(s): 294952821 Assessment: Much improved. (2) Pleural effusion associated with pulmonary infection: Status: Acute Code(s): J18.9 - Pneumonia, unspecified organism; J91.8 - Pleural effusion in other conditions classified elsewhere SNOMED Code(s): 88214532 Plan: Will discharge on antibiotics.
--- NOTE | 2022-09-14 10:29 | PCM.DC ---
Final Diagnosis: bilateral pneumonia bilateral pleural effusions Physical Exam Appearance: No pain distress, Well-nourished, Thin and Other (Breathing without difficulty.) Ill-appearing: Mild Pain Distress: None Eyes: Conjunctiva clear ENT: Nose normal and Oropharynx normal Neck: Supple Respiratory: Airway patent, Breath sounds clear, Breath sounds equal and Other (Air exchange much improved.) Cardiovascular: RRR, No rub and No murmur GI/: Soft, Nontender, No masses and Bowel sounds normal Musculoskeletal: Normal strength, ROM intact and No edema Skin: Warm, Dry and Normal color Neurological: Alert and Oriented Psychiatric: Affect appropriate and Mood appropriate (1) Pneumonia: Status: Acute Code(s): J18.9 - Pneumonia, unspecified organism SNOMED Code(s): 446668524 (2) Pleural effusion associated with pulmonary infection: Status: Acute Code(s): J18.9 - Pneumonia, unspecified organism; J91.8 - Pleural effusion in other conditions classified elsewhere SNOMED Code(s): 98355304 Reason for Hospitalization: bilateral pneumonia and bilateral pleural effusions Prognosis/Condition at Discharge: Condition at discharge was stable. Medications at Discharge: Patient discharged on azithromycin and levaquin as well as medications she was taking at admission. Education Provided to Patient and Family: pneumonia Follow-ups: Follow up with your primary care provider next week. Discharge Disposition: Home Hospital Course: Patient admitted with bilateral pneumonia and bilateral pleural effusions. She received azithromycin and rocephin. Patient also was treated with duo nebs and IV steroids. She gradually improved and was discharged to home on hospital day #4. Plan: Discharge to home.
== END 2022-09-14 11:30 | disposition home or self-care (01) ==
LOC: MEDSURG A 20:25 → ED 20:25 → MEDSURG A 23:22
PROVIDERS: ADMIT Surgery; ATTEND Surgery
DX: R06.02 Shortness of breath; Z79.899 Other long term (current) drug therapy; Z20.822 Contact with and (suspected) exposure to COVID-19; R53.1 Weakness; Z86.59 Personal history of other mental and behavioral disorders; Z51.81 Encounter for therapeutic drug level monitoring; E87.6 Hypokalemia; J18.9 Pneumonia, unspecified organism; R63.0 Anorexia; F17.210 Nicotine dependence, cigarettes, uncomplicated; J91.8 Pleural effusion in other conditions classified elsewhere